=== PATIENT | male | born 1955 | race Caucasian/White ===

== ENCOUNTER 2016-10-05 22:12 | Observation (INO) | payer SELFPAY ==
--- NOTE | 2016-10-05 22:38 | ERPHSYRPT ---
- History of Present Illness Time Seen by Provider: 10/05/16 22:20 Source: patient Exam Limitations: no limitations Physician History: PT HAS HAD BLURRY VISION FOR THE PAST 2 MONTHS; POLYURIA FOR THE PAST MONTH; INTERMITTENT HEADACHE FOR THE PAST 3 DAYS. TODAY PT'S BLOOD GLUCOSE WAS 510 AT NOON AND 24O AT 2115. PT STATES HE TOOK BACTRIM FOR 3 DAYS FOR A UTI STARTING 3 DAYS AGO. PT DENIES CHEST PAIN, SHORTNESS OF AIR, VOMITING. Allergies/Adverse Reactions: No Known Drug Allergies Allergy (Unverified 10/05/16 22:18) - Review of Systems Constitutional: No Fever Eyes: Vision Changes (BLURRY VISION FOR 2 MONTHS) Respiratory: No Dyspnea Cardiac: No Chest Pain Abdominal/Gastrointestinal: No Vomiting Genitourinary Symptoms: Frequency Neurological: Headache Endocrine: No Excessive Sweating All Other Systems: Reviewed and Negative - Nursing Vital Signs Nursing Vital Signs: Initial Vital Signs Temperature 98.0 F Temperature Source Oral Pulse Rate 80 Respiratory Rate 16 Blood Pressure [] 110/64 Pain Intensity 0 - Physical Exam General Appearance: alert Eye Exam: PERRL/EOMI Ears, Nose, Throat Exam: pharynx normal, moist mucous membranes Neck Exam: normal inspection Respiratory Exam: lungs clear Cardiovascular Exam: normal heart sounds Gastrointestinal/Abdomen Exam: soft, normal bowel sounds Back Exam: normal range of motion Extremity Exam: normal inspection, No pedal edema Neurologic Exam: alert, cooperative Skin Exam: warm, dry - Course Nursing assessment & vital signs reviewed: Yes - CT Exams Head CT Interpretation: Tele-radiologist Report (NO ACUTE INTRACRANIAL PROCESS) Ordered Tests: Active Orders 24 hr Category Date Time Status Accucheck STAT Care 10/05/16 22:30 Active IV Insertion STAT Care 10/05/16 23:53 Active HEAD WITHOUT CONTRAST [CT] Stat Exams 10/05/16 22:31 Taken AMYLASE Stat Lab 10/05/16 23:01 Completed CBC W DIFF Stat Lab 10/05/16 23:01 Completed CMP Stat Lab 10/05/16 23:01 Completed LIPASE Stat Lab 10/05/16 23:01 Completed MAGNESIUM Stat Lab 10/05/16 23:01 Completed UA Stat Lab 10/05/16 22:30 Completed Medication Summary Generic Name Dose Route Start Last Admin Trade Name Freq PRN Reason Stop Dose Admin Sodium Chloride 1,000 mls @ 999 mls/hr 10/06/16 02:11 Sodium Chloride 0.9% 1000 Ml IV 10/06/16 03:11 .Q1H1M STA Discontinued Medications Generic Name Dose Route Start Last Admin Trade Name Leonidas PRN Reason Stop Dose Admin Sodium Chloride 1,000 mls @ 999 mls/hr 10/05/16 23:53 10/06/16 00:15 Sodium Chloride 0.9% 1000 Ml IV 10/06/16 00:53 999 mls/hr .Q1H1M STA Administration Sodium Chloride Confirm 10/06/16 00:14 Sodium Chloride 0.9% 1000 Ml Administered 10/06/16 00:15 Dose 1,000 mls @ ud .ROUTE .STK-MED ONE Lab/Rad Data: Laboratory Result Diagrams 10/05/16 23:01 10/05/16 23:01 Laboratory Results 10/05/16 10/05/16 10/05/16 Range/Units 23:01 23:01 23:01 WBC 10.0 (4.0-10.5) K/mm3 RBC 4.81 (4.1-5.6) M/mm3 Hgb 14.9 (12.5-18.0) gm/dl Hct 41.1 L (42-50) % MCV 85.4 (78-100) fl MCH 31.0 (26-32) pg MCHC 36.3 H (32-36) g/dl RDW 11.6 (11.5-14.0) % Plt Count 283 (150-450) K/mm3 MPV 11.1 H (6-9.5) fl Gran % 48.1 (36.0-66.0) % Lymphocytes % 40.7 (24.0-44.0) % Monocytes % 8.1 (0.0-12.0) % Eosinophils % 2.5 (0.00-5.0) % Basophils % 0.6 (0.0-0.4) % Basophils # 0.06 (0-0.4) Sodium 132 L (136-145) mEq/L Potassium 4.3 (3.5-5.1) mEq/L Chloride 94 L (98-107) mEq/L Carbon Dioxide 26.5 (21-32) mEq/L Anion Gap 15.3 H (5-15) MEQ/L BUN 80 H (9-20) mg/dL Creatinine 2.62 H (0.55-1.30) mg/dl Estimated GFR 26 ML/MIN Glucose 222 H (70-110) MG/DL Calcium 9.3 (8.5-10.1) mg/dL Magnesium 2.1 (1.8-2.4) mg/dL Total Bilirubin 0.4 (0.2-1.0) mg/dL AST 19 (15-37) U/L ALT 63 (12-78) U/L Alkaline Phosphatase 66 (46-116) U/L Serum Total Protein 7.1 (6.4-8.2) gm/dL Albumin 3.8 (3.4-5.0) g/dL Amylase 50 (25-115) U/L Lipase 219 (73-393) U/L Ur Collection Type Urine Color (YELLOW) Urine Appearance (CLEAR) Urine pH (5-6) Ur Specific [place] (1.005-1.025) Urine Protein (Negative) Urine Glucose (UA) (NEGATIVE) mg/dL Urine Ketones (NEGATIVE) Urine Nitrite (NEGATIVE) Urine Bilirubin (NEGATIVE) Urine Urobilinogen (0-1) mg/dL Urine WBC (Auto) (NEGATIVE) Urine RBC (Auto) (0-5) Rupesh/ul Specimen Received 10/05/16 Range/Units 22:30 WBC (4.0-10.5) K/mm3 RBC (4.1-5.6) M/mm3 Hgb (12.5-18.0) gm/dl Hct (42-50) % MCV (78-100) fl MCH (26-32) pg MCHC (32-36) g/dl RDW (11.5-14.0) % Plt Count (150-450) K/mm3 MPV (6-9.5) fl Gran % (36.0-66.0) % Lymphocytes % (24.0-44.0) % Monocytes % (0.0-12.0) % Eosinophils % (0.00-5.0) % Basophils % (0.0-0.4) % Basophils # (0-0.4) Sodium (136-145) mEq/L Potassium (3.5-5.1) mEq/L Chloride (98-107) mEq/L Carbon Dioxide (21-32) mEq/L Anion Gap (5-15) MEQ/L BUN (9-20) mg/dL Creatinine (0.55-1.30) mg/dl Estimated GFR ML/MIN Glucose (70-110) MG/DL Calcium (8.5-10.1) mg/dL Magnesium (1.8-2.4) mg/dL Total Bilirubin (0.2-1.0) mg/dL AST (15-37) U/L ALT (12-78) U/L Alkaline Phosphatase (46-116) U/L Serum Total Protein (6.4-8.2) gm/dL Albumin (3.4-5.0) g/dL Amylase (25-115) U/L Lipase (73-393) U/L Ur Collection Type CLEAN CATCH Urine Color YELLOW (YELLOW) Urine Appearance CLEAR (CLEAR) Urine pH 5.0 (5-6) Ur Specific [place] 1.010 (1.005-1.025) Urine Protein NEGATIVE (Negative) Urine Glucose (UA) NEGATIVE (NEGATIVE) mg/dL Urine Ketones NEGATIVE (NEGATIVE) Urine Nitrite NEGATIVE (NEGATIVE) Urine Bilirubin NEGATIVE (NEGATIVE) Urine Urobilinogen 0.2 (0-1) mg/dL Urine WBC (Auto) NEGATIVE (NEGATIVE) Urine RBC (Auto) NEGATIVE (0-5) Rupesh/ul Specimen Received [id number] - Progress Discussed with : Rafaela (OBS - [id number]) - Departure Time of Disposition: 02:13 Departure Disposition: Observation Clinical Impression: DEHYDRATION, ACUTE RENAL FAILURE, DM Condition: Fair Critical Care Time: No Referrals: ERIS NORMAN [Primary Care Provider] -
[2016-10-05 23:04] LABS: BASOPHIL % 0.6 % (0.0-0.4); Eosinophil % 2.5 % (0.00-5.0); Granulocytes % 48.1 % (36.0-66.0); Lymphocytes % 40.7 % (24.0-44.0); Mean Cell Volume 85.4 fl (78-100); Mean Platelet Volume 11.1 fl (6-9.5); Monocytes % 8.1 % (0.0-12.0); Platelet Count 283 K/mm3 (150-450); Red Blood Count 4.81 M/mm3 (4.1-5.6); Red Cell Distribution Width 11.6 % (11.5-14.0)
[2016-10-05 23:25] LABS: LIPASE 219 U/L (73-393)
[2016-10-05 23:27] LABS: ALBUMIN 3.8 g/dL (3.4-5.0); ANION GAP 15.3 MEQ/L (5-15); BILIRUBIN,TOTAL 0.4 mg/dL (0.2-1.0); Carbon Dioxide 26.5 mEq/L (21-32); MAGNESIUM 2.1 mg/dL (1.8-2.4); Potassium 4.3 mEq/L (3.5-5.1); Total Protein 7.1 gm/dL (6.4-8.2)
[2016-10-05] MEDS ORDERED: Sodium Chloride 0.9% 1000 ML 1,000 ML IV STA (23:53)
[2016-10-06] MEDS ORDERED: Sodium Chloride 0.9% 1000 ML 1,000 ML ONE ×2 (00:14→02:16)
[2016-10-06 00:27] LABS: COMPLETE URINE MICROSCOPIC? NO; Collection Type CLEAN CATCH
[2016-10-06] MEDS ORDERED: Sodium Chloride 0.9% 1000 ML 1,000 ML IV STA (02:11)
[2016-10-06] MEDS ORDERED: TYLENOL 325 MG PO PRN (02:51)
[2016-10-06] MEDS ORDERED: Phenergan 25 MG INJ IV PRN (02:51)
[2016-10-06] MEDS: Sodium Chloride 0.9% 1000 ML 1,000 ML IV SCH ×3 (04:02→10:55)
[2016-10-06 08:51] LABS: BASOPHIL % 0.6 % (0.0-0.4); Eosinophil % 3.1 % (0.00-5.0); Granulocytes % 50.2 % (36.0-66.0); Lymphocytes % 37.7 % (24.0-44.0); Mean Cell Volume 88.4 fl (78-100); Mean Corpuscular Hemoglobin 30.8 pg (26-32); Mean Platelet Volume 11.3 fl (6-9.5); Monocytes % 8.4 % (0.0-12.0); Platelet Count 250 K/mm3 (150-450); Red Blood Count 4.15 M/mm3 (4.1-5.6); Red Cell Distribution Width 11.7 % (11.5-14.0); White Blood Count 7.7 K/mm3 (4.0-10.5)
--- NOTE | 2016-10-06 08:55 | XRAY ---
Indication: Blurred vision for 2 months. Intermittent headache. Hypertension. Multiple contiguous axial images obtained through the head without contrast. Comparison: None Normal appearing brain parenchyma, ventricles, and bony calvarium. There is mild mucosal thickening of both ethmoid sinuses. Mastoid air cells are clear. Impression: No acute intracranial abnormalities. Incidental paranasal sinus disease. Comment: Preliminary interpretation was made by C. No discrepancy. CTDI is 69.79
[2016-10-06 09:20] LABS: ANION GAP 11.6 MEQ/L (5-15); BILIRUBIN,TOTAL 0.3 mg/dL (0.2-1.0); Potassium 4.9 mEq/L (3.5-5.1); Total Protein 5.8 gm/dL (6.4-8.2)
[2016-10-06] MEDS: NovoLOG Insulin SQ PRN ×2 (09:24→12:06)
[2016-10-06] MEDS ORDERED: Lantus Insulin SQ SCH (10:00)
[2016-10-06] MEDS ORDERED: INSULIN GLARGINE HUM REC ANLOG 20 UNIT SQ SCH (10:00)
[2016-10-06] MEDS ORDERED: Micronase 5 MG PO SCH (10:00)
[2016-10-06] MEDS ORDERED: Protonix 40MG Tablet PO SCH (10:00)
[2016-10-06] MEDS ORDERED: Zestril 20 MG PO SCH (10:00)
[2016-10-06] MEDS ORDERED: NON-FORMULARY ITEM (Omeprazole 20 Mg [Prilosec 20 Mg] 20 MG) PO SCH (10:00)
[2016-10-06] MEDS ORDERED: NORVASC 5 MG PO SCH (10:00)
[2016-10-06 12:23] VITALS: BP 99/56; PULSE 66; O2SAT 98
--- NOTE | 2016-10-06 13:12 | PCM.SSS ---
History of Present Illness - Chief Complaint Chief Complaint: patient has high blood sugar History of Present Illness: is a 61 year old male PT HAS HAD BLURRY VISION FOR THE PAST 2 MONTHS; POLYURIA FOR THE PAST MONTH; INTERMITTENT HEADACHE FOR THE PAST 3 DAYS. TODAY PT 'S BLOOD GLUCOSE WAS 510 AT NOON AND 24O AT 2115. PT STATES HE TOOK BACTRIM FOR 3 DAYS FOR A UTI STARTING 3 DAYS AGO. PT DENIES CHEST PAIN, SHORTNESS OF AIR, VOMITING.. - Review of Systems Constitutional: No Fever, No Chills Eyes: No Symptoms Ears, Nose, & Throat: No Symptoms Respiratory: No Cough, No Short Of Breath Cardiac: No Chest Pain, No Edema, No Syncope Abdominal/Gastrointestinal: No Abdominal Pain, No Nausea, No Vomiting, No Diarrhea Genitourinary Symptoms: No Dysuria Musculoskeletal: No Back Pain, No Neck Pain Skin: No Rash Neurological: Dizziness, No Focal Weakness, No Sensory Changes Psychological: No Symptoms Endocrine: No Symptoms Hematologic/Lymphatic: No Symptoms Immunological/Allergic: No Symptoms Medications & Allergies Home Medications: Home Medication List Amlodipine Besylate 5 mg [Norvasc 5 mg] 5 mg PO DAILY 10/06/16 [History Confirmed 10/06/16] Glyburide 5 mg [Micronase 5 MG] 5 mg PO DAILY 10/06/16 [History Confirmed 10/06/16] Insulin Glargine,Hum.rec.anlog [Gela Stallings] 15 unit SQ BID #0 10/06/16 [ Rx Confirmed 10/06/16] Lisinopril 20 mg [Zestril 20 MG] 40 mg PO DAILY 10/06/16 [History Confirmed 10/06/16] Omeprazole 20 MG [Prilosec 20 mg] 20 mg PO DAILY 10/06/16 [History Confirmed ] Allergies/Adverse Reactions: Allergies Allergy/AdvReac Type Severity Reaction Status Date / Time No Known Drug Allergies Allergy Unverified 10/05/16 22:18 - Past Medical History Past Medical History: Yes Cardiac History: Hypertension Respiratory History: Asthma Endocrine Medical History: Diabetes Type II Musculoskelatal History: Fractures GI Medical History: GERD, Hernia History: No Pertinent History Pyscho-Social History: No Pertinent History Male Reproductive Disorders: No Pertinent History Comment: was born with a hernia, three fractures on Left arm 1964, and fracture on R ankle 1965. had gonorrhea in the 1969's. - Past Surgical History Past Surgical History: Yes Cardiac History: Cardiac Catheterization - Social History Smoking Status: Former smoker Exposure to second hand smoke: No Alcohol: Occasionally Drug Use: none - Physical Exam Vital Signs: Vital Signs - 24 hr Temp Pulse Resp BP BP Pulse Ox 10/06/16 12:22 97.5 F 66 20 99/56 98 10/06/16 07:20 97.8 F 86 20 110/58 97 10/06/16 04:15 91 H 18 95 10/06/16 03:03 97.9 F 90 19 110/61 96 10/06/16 01:24 80 16 110/64 97 10/06/16 00:41 89 16 98/52 99 10/05/16 22:18 98.0 F 96 H 20 94/60 98 General Appearance: no apparent distress, alert Neurologic Exam: alert, oriented x 3, cooperative, normal mood/affect, nml cerebellar function, nml station & gait, sensation nml, No motor deficits Eye Exam: PERRL/EOMI, eyes nml inspection Ears, Nose, Throat Exam: normal ENT inspection, TMs normal, pharynx normal, moist mucous membranes Neck Exam: normal inspection, non-tender, supple, full range of motion Respiratory Exam: normal breath sounds, lungs clear, No respiratory distress Cardiovascular Exam: regular rate/rhythm, normal heart sounds, normal peripheral pulses Gastrointestinal/Abdomen Exam: soft, normal bowel sounds, No tenderness, No mass Back Exam: normal inspection, normal range of motion, No CVA tenderness, No vertebral tenderness Extremity Exam: normal inspection, normal range of motion, pelvis stable Skin Exam: normal color, warm, dry, No rash Lymphatic Exam: No adenopathy Results - Labs Lab/Micro Results: Accuchecks Accucheck Value: 258 Accucheck Value: 235 Lab Results-Last 24 Hours 10/06/16 10/06/16 10/06/16 Range/Units 05:00 08:07 08:07 WBC 7.7 (4.0-10.5) K/mm3 RBC 4.15 (4.1-5.6) M/mm3 Hgb 12.8 (12.5-18.0) gm/dl Hct 36.7 L (42-50) % MCV 88.4 (78-100) fl MCH 30.8 (26-32) pg MCHC 34.9 (32-36) g/dl RDW 11.7 (11.5-14.0) % Plt Count 250 (150-450) K/mm3 MPV 11.3 H (6-9.5) fl Gran % 50.2 (36.0-66.0) % Lymphocytes % 37.7 (24.0-44.0) % Monocytes % 8.4 (0.0-12.0) % Eosinophils % 3.1 (0.00-5.0) % Basophils % 0.6 (0.0-0.4) % Basophils # 0.05 (0-0.4) Sodium 137 (136-145) mEq/L Potassium 4.9 (3.5-5.1) mEq/L Chloride 103 (98-107) mEq/L Carbon Dioxide 27.0 (21-32) mEq/L Anion Gap 11.6 (5-15) MEQ/L BUN 66 H (9-20) mg/dL Creatinine 2.13 H (0.55-1.30) mg/dl Estimated GFR 34 ML/MIN Glucose 266 H (70-110) MG/DL Hemoglobin A1c 11.9 H (4.5-6.2) Calcium 8.3 L (8.5-10.1) mg/dL Total Bilirubin 0.3 (0.2-1.0) mg/dL AST 27 (15-37) U/L ALT 51 (12-78) U/L Alkaline Phosphatase 51 (46-116) U/L Serum Total Protein 5.8 L (6.4-8.2) gm/dL Albumin 3.0 L (3.4-5.0) g/dL Accuchecks Accucheck Value: 258 Accucheck Value: 235 Assessment/Plan (1) Type 2 diabetes mellitus Current Visit: Yes Status: Acute Qualifiers: Diabetes mellitus complication status: with hyperglycemia Diabetes mellitus vermin exterminator insulin use: unspecified vermin exterminator insulin use status Qualified Code(s): E11.65 - Type 2 diabetes mellitus with hyperglycemia Hospital Summary - Hospital Course Hospital Course: Chief Complaint Diagnosis patient has high blood sugar Allergies Allergy/AdvReac Type Severity Reaction Status Date / Time No Known Drug Allergies Allergy Unverified 10/05/16 22:18 Vital Signs (Last 24 hours) Temp Pulse Resp BP BP Pulse Ox 10/06/16 12:22 97.5 F 66 20 99/56 98 10/06/16 07:20 97.8 F 86 20 110/58 97 10/06/16 04:15 91 H 18 95 10/06/16 03:03 97.9 F 90 19 110/61 96 10/06/16 01:24 80 16 110/64 97 10/06/16 00:41 89 16 98/52 99 10/05/16 22:18 98.0 F 96 H 20 94/60 98 Home Medications Medication Instructions Recorded Confirmed Last Taken Type Amlodipine Besylate 5 mg 5 mg PO DAILY 10/06/16 10/06/16 10/05/16 05:00 History [Norvasc 5 mg] Glyburide 5 mg [Micronase 5 5 mg PO DAILY 10/06/16 10/06/16 Unknown History MG] Insulin Glargine,Hum.rec.anlog 20 unit SQ BID 10/06/16 10/06/16 10/05/16 19:00 History [Gela Stallings] Lisinopril 20 mg [Zestril 20 40 mg PO DAILY 10/06/16 10/06/16 10/05/16 05:00 History MG] Omeprazole 20 MG [Prilosec 20 mg] 20 mg PO DAILY 10/06/16 10/06/16 10/05/16 05: 00 History Current Medications Generic Name Dose Route Start Last Admin Trade Name Freq PRN Reason Stop Dose Admin Acetaminophen 650 mg 10/06/16 02:51 Tylenol 325 Mg PO 11/05/16 02:50 Q4H PRN PRN PAIN AND/OR FEVER Amlodipine Besylate 5 mg 10/06/16 10:00 10/06/16 09:26 Norvasc 5 Mg PO 11/05/16 09:59 5 mg DAILY WILLIAM Administration Glyburide 5 mg 10/06/16 10:00 10/06/16 09:26 Micronase 5 Mg PO 11/05/16 09:59 5 mg DAILY WILLIAM Administration Sodium Chloride 1,000 mls @ 300 mls/hr 10/06/16 02:51 10/06/16 10:55 Sodium Chloride 0.9% 1000 Ml IV 11/05/16 02:50 300 mls/hr .Q3H20M WILLIAM Administration Insulin Aspart 0 unit 10/06/16 02:51 10/06/16 12:06 Novolog Insulin SQ 11/05/16 02:50 7 unit UD PRN Administration HYPERGLYCEMIA Insulin Glargine 16 unit 10/06/16 10:00 10/06/16 09:27 Lantus Insulin SQ 11/05/16 09:59 16 unit BID WILLIAM Administration Lisinopril 40 mg 10/06/16 10:00 10/06/16 09:25 Zestril 20 Mg PO 11/05/16 09:59 40 mg DAILY WILLIAM Administration Pantoprazole Sodium 40 mg 10/06/16 10:00 10/06/16 09:26 Protonix 40mg Tablet PO 11/05/16 09:59 40 mg DAILY WILLIAM Administration Promethazine HCl 12.5 mg 10/06/16 02:51 Phenergan 25 Mg Inj IV 11/05/16 02:50 Q2H PRN PRN NAUSEA/VOMITING Discontinued Medications Generic Name Dose Route Start Last Admin Trade Name Freq PRN Reason Stop Dose Admin Sodium Chloride 1,000 mls @ 999 mls/hr 10/05/16 23:53 10/06/16 00:15 Sodium Chloride 0.9% 1000 Ml IV 10/06/16 00:53 999 mls/hr .Q1H1M STA Administration Sodium Chloride Confirm 10/06/16 00:14 Sodium Chloride 0.9% 1000 Ml Administered 10/06/16 00:15 Dose 1,000 mls @ ud .ROUTE .STK-MED ONE Sodium Chloride 1,000 mls @ 999 mls/hr 10/06/16 02:11 10/06/16 02:17 Sodium Chloride 0.9% 1000 Ml IV 10/06/16 03:11 999 mls/hr .Q1H1M STA Administration Sodium Chloride Confirm 10/06/16 02:16 Sodium Chloride 0.9% 1000 Ml Administered 10/06/16 02:17 Dose 1,000 mls @ ud .ROUTE .STK-MED ONE Intake & Output (Last 24 hours) 01/22/10/05/16 10/06/16 10/07/16 11:59 11:59 11:59 11:59 Intake Total 240 Output Total 200 Balance 40 Weight 107.547 kg Laboratory Results (Last 24 hours) 10/06/16 10/06/16 10/06/16 08:07 08:07 05:00 WBC 7.7 RBC 4.15 Hgb 12.8 Hct 36.7 L MCV 88.4 MCH 30.8 MCHC 34.9 RDW 11.7 Plt Count 250 MPV 11.3 H Gran % 50.2 Lymphocytes % 37.7 Monocytes % 8.4 Eosinophils % 3.1 Basophils % 0.6 Basophils # 0.05 Sodium 137 Potassium 4.9 Chloride 103 Carbon Dioxide 27.0 Anion Gap 11.6 BUN 66 H Creatinine 2.13 H Estimated GFR 34 Glucose 266 H Hemoglobin A1c 11.9 H Calcium 8.3 L Magnesium Total Bilirubin 0.3 AST 27 ALT 51 Alkaline Phosphatase 51 Serum Total Protein 5.8 L Albumin 3.0 L Amylase Lipase Ur Collection Type Urine Color Urine Appearance Urine pH Ur Specific [place] Urine Protein Urine Glucose (UA) Urine Ketones Urine Nitrite Urine Bilirubin Urine Urobilinogen Urine WBC (Auto) Urine RBC (Auto) Specimen Received 10/05/16 10/05/16 10/05/16 23:01 23:01 23:01 WBC 10.0 RBC 4.81 Hgb 14.9 Hct 41.1 L MCV 85.4 MCH 31.0 MCHC 36.3 H RDW 11.6 Plt Count 283 MPV 11.1 H Gran % 48.1 Lymphocytes % 40.7 Monocytes % 8.1 Eosinophils % 2.5 Basophils % 0.6 Basophils # 0.06 Sodium 132 L Potassium 4.3 Chloride 94 L Carbon Dioxide 26.5 Anion Gap 15.3 H BUN 80 H Creatinine 2.62 H Estimated GFR 26 Glucose 222 H Hemoglobin A1c Calcium 9.3 Magnesium 2.1 Total Bilirubin 0.4 AST 19 ALT 63 Alkaline Phosphatase 66 Serum Total Protein 7.1 Albumin 3.8 Amylase 50 Lipase 219 Ur Collection Type Urine Color Urine Appearance Urine pH Ur Specific [place] Urine Protein Urine Glucose (UA) Urine Ketones Urine Nitrite Urine Bilirubin Urine Urobilinogen Urine WBC (Auto) Urine RBC (Auto) Specimen Received 10/05/16 22:30 WBC RBC Hgb Hct MCV MCH MCHC RDW Plt Count MPV Gran % Lymphocytes % Monocytes % Eosinophils % Basophils % Basophils # Sodium Potassium Chloride Carbon Dioxide Anion Gap BUN Creatinine Estimated GFR Glucose Hemoglobin A1c Calcium Magnesium Total Bilirubin AST ALT Alkaline Phosphatase Serum Total Protein Albumin Amylase Lipase Ur Collection Type CLEAN CATCH Urine Color YELLOW Urine Appearance CLEAR Urine pH 5.0 Ur Specific [place] 1.010 Urine Protein NEGATIVE Urine Glucose (UA) NEGATIVE Urine Ketones NEGATIVE Urine Nitrite NEGATIVE Urine Bilirubin NEGATIVE Urine Urobilinogen 0.2 Urine WBC (Auto) NEGATIVE Urine RBC (Auto) NEGATIVE Specimen Received [id number] Orders (Last 24 hours) Category Date Time Status Bedrest ROUTINE Activity 10/06/16 02:51 Active Accucheck ACHS Care 10/06/16 02:51 Active Accucheck STAT Care 10/05/16 22:30 Completed Accucheck STAT Care 10/06/16 02:25 Completed Admission/Status Order ROUTINE Care 10/06/16 02:51 Active Code Status Order ROUTINE Care 10/06/16 02:51 Active IV Care Q6H Care 10/06/16 02:51 Active IV Insertion STAT Care 10/05/16 23:53 Completed Intake and Output Q12H Care 10/06/16 02:51 Active Vital Signs Q4H Care 10/06/16 02:51 Active Weight,Daily 0600 Care 10/06/16 02:51 Active 1800 Calorie ADA Diet 10/06/16 Breakfast Active Nutritional Admission Screen once Diet 10/06/16 04:10 Completed HEAD WITHOUT CONTRAST [CT] Stat Exams 10/05/16 22:31 Completed A1C [HEMOGLOBIN A1C] Urgent Lab 10/06/16 05:00 Completed AMYLASE Stat Lab 10/05/16 23:01 Completed CBC W DIFF Routine Lab 10/06/16 08:07 Completed CBC W DIFF Stat Lab 10/05/16 23:01 Completed CMP Routine Lab 10/06/16 08:07 Completed CMP Stat Lab 10/05/16 23:01 Completed LIPASE Stat Lab 10/05/16 23:01 Completed MAGNESIUM Stat Lab 10/05/16 23:01 Completed UA Stat Lab 10/05/16 22:30 Completed Acetaminophen 325 mg [Tylenol 325 mg] Med 10/06/16 02:51 Active 650 mg PO Q4H PRN PRN Amlodipine Besylate 5 mg [Norvasc 5 mg] Med 10/06/16 10:00 Active 5 mg PO DAILY Glyburide 5 mg [Micronase 5 MG] Med 10/06/16 10:00 Active 5 mg PO DAILY Insulin Aspart [NovoLOG Insulin] Med 10/06/16 02:51 Active See Dose Instructions SQ UD PRN Insulin Glargine [Lantus Insulin] Med 10/06/16 10:00 Active 16 unit SQ BID Lisinopril 20 mg [Zestril 20 MG] Med 10/06/16 10:00 Active 40 mg PO DAILY NaCl 0.9% 1000 ml [Sodium Chloride 0.9% 1000 ML] 1,000 Med 10/06/16 00:14 Discontinued ml .ROUTE UD NaCl 0.9% 1000 ml [Sodium Chloride 0.9% 1000 ML] 1,000 Med 10/06/16 02:16 Discontinued ml .ROUTE UD NaCl 0.9% 1000 ml [Sodium Chloride 0.9% 1000 ML] 1,000 Med 10/06/16 02:51 Active ml IV 300 mls/hr NaCl 0.9% 1000 ml [Sodium Chloride 0.9% 1000 ML] 1,000 Med 10/05/16 23:53 Discontinued ml IV 999 mls/hr NaCl 0.9% 1000 ml [Sodium Chloride 0.9% 1000 ML] 1,000 Med 10/06/16 02:11 Discontinued ml IV 999 mls/hr PANTOPRAZOLE 40 mg Tablet [Protonix 40MG Tablet] Med 10/06/16 10:00 Active 40 mg PO DAILY Promethazine HCl 25 mg Amp [Phenergan 25 MG INJ] Med 10/06/16 02:51 Active 12.5 mg IV Q2H PRN PRN RT Screen per Nursing Assess ONCE RT 10/06/16 04:10 Completed Respiratory Therapy Consult ROUTINE RT 10/06/16 04:53 Completed Transfer Order Routine Transfer 10/06/16 02:14 Completed - Vitals & Intake/Output Vital Signs: Vital Signs Temperature 97.5 F 10/06/16 12:22 Pulse Rate 66 10/06/16 12:22 Respiratory Rate 20 10/06/16 12:22 Blood Pressure 99/56 10/06/16 12:22 O2 Sat by Pulse Oximetry 98 10/06/16 12:22 Intake & Output: Intake & Output 10/04/16 10/05/16 10/06/16 10/07/16 11:59 11:59 11:59 11:59 Intake Total 240 Output Total 200 Balance 40 Weight 107.547 kg - Lab Result Diagrams: 10/06/16 08:07 10/06/16 08:07 Lab Results-Last 24 Hrs: Accuchecks Accucheck Value: 258 Accucheck Value: 235 Lab Results-Last 24 Hours 10/06/16 10/06/16 10/06/16 Range/Units 05:00 08:07 08:07 WBC 7.7 (4.0-10.5) K/mm3 RBC 4.15 (4.1-5.6) M/mm3 Hgb 12.8 (12.5-18.0) gm/dl Hct 36.7 L (42-50) % MCV 88.4 (78-100) fl MCH 30.8 (26-32) pg MCHC 34.9 (32-36) g/dl RDW 11.7 (11.5-14.0) % Plt Count 250 (150-450) K/mm3 MPV 11.3 H (6-9.5) fl Gran % 50.2 (36.0-66.0) % Lymphocytes % 37.7 (24.0-44.0) % Monocytes % 8.4 (0.0-12.0) % Eosinophils % 3.1 (0.00-5.0) % Basophils % 0.6 (0.0-0.4) % Basophils # 0.05 (0-0.4) Sodium 137 (136-145) mEq/L Potassium 4.9 (3.5-5.1) mEq/L Chloride 103 (98-107) mEq/L Carbon Dioxide 27.0 (21-32) mEq/L Anion Gap 11.6 (5-15) MEQ/L BUN 66 H (9-20) mg/dL Creatinine 2.13 H (0.55-1.30) mg/dl Estimated GFR 34 ML/MIN Glucose 266 H (70-110) MG/DL Hemoglobin A1c 11.9 H (4.5-6.2) Calcium 8.3 L (8.5-10.1) mg/dL Total Bilirubin 0.3 (0.2-1.0) mg/dL AST 27 (15-37) U/L ALT 51 (12-78) U/L Alkaline Phosphatase 51 (46-116) U/L Serum Total Protein 5.8 L (6.4-8.2) gm/dL Albumin 3.0 L (3.4-5.0) g/dL Micro Results-Entire Visit: Accuchecks Accucheck Value: 258 Accucheck Value: 235 - Procedures and Test Procedures and Tests throughout Hospitalization: Therapy Orders & Screens 10/06/16 04:10 RT Screen per Nursing Assess ONCE Comment: Protocol Order Physician Instructions: Greater than 3 points order RT Admission Screen Reason For Exam: Triggered on Admission Diagnosis: dehydration and acute renal failure Diagnosis: dehydration and acute renal failure Pneumonia: No Home O2: No Asthma: Yes CHF: No Home CPAP/BIPAP: No Home Nebs/MDI: Yes Total Points: 9 10/06/16 04:53 Respiratory Therapy Consult ROUTINE Comment: Reason For Exam: Diagnosis: dehydration and acute renal failure - Discharge Discharge Date: 10/06/16 Disposition: Home, Self-Care Condition: Stable Prescriptions: Changed Insulin Glargine,Hum.rec.anlog [Gela Stallings] 15 unit SQ BID #0 No Action Lisinopril 20 mg [Zestril 20 MG] 40 mg PO DAILY Amlodipine Besylate 5 mg [Norvasc 5 mg] 5 mg PO DAILY Omeprazole 20 MG [Prilosec 20 mg] 20 mg PO DAILY Glyburide 5 mg [Micronase 5 MG] 5 mg PO DAILY Instructions: Carbohydrate-Counting Diet, Diabetes Type 2 Follow up with: ERIS NORMAN [Primary Care Provider] - 5 Days Forms: Patient Portal Information
== END 2016-10-06 14:25 | disposition home or self-care (01) ==
LOC: ED 22:12 → MED SURG 10-06 02:48
PROVIDERS: ADMIT General Practice; ATTEND General Practice
DX: E11.65 Type 2 diabetes mellitus with hyperglycemia (principal); Z79.4 Long term (current) use of insulin
CPT/HCPCS: 36000; 36415; 70450; 80053; 81002; 82150; 82962; 83036; 83690; 83735; 85025; 94760; 96360; 96361; 99284; G0378

== ENCOUNTER 2021-07-29 13:30 | Emergency (ER) | payer MEDICARE, OTHER ==
--- NOTE | 2021-07-29 13:57 | ERPHSYRPT ---
- History of Present Illness Time Seen by Provider: 07/29/21 13:57 Source: patient Exam Limitations: no limitations Patient Subjective Stated Complaint: pt states "I smashed my finger with a lawnmower handle." Triage Nursing Assessment: Pt presented alert and oriented X 3, skin pwd Pt ambulates with an upright steady gait, able to speak in clear full sentences pt in no apparent respiratory distress. Pt has broken fingernail in the middle on his middle finger of his right hand. Physician History: This is a right-handed 66-year-old male who is diabetic and has a history of hypertension and was riding his lawn more today when the lever retracted unexpectedly smashing his third digit. The patient's tetanus status is not up-to-date. There are no other associated injuries Timing/Duration: today Quality: painful Severity: moderate Location: hands (Right hand third digit) Possible Causes: other (Crush injury) Associated Symptoms: denies symptoms Allergies/Adverse Reactions: soap Allergy (Intermediate, Verified 07/29/21 13:53) Hives Home Medications: Amlodipine Besylate 5 mg [Norvasc 5 mg] 5 mg PO DAILY 10/06/16 [History] Glyburide 5 mg [Micronase 5 MG] 5 mg PO DAILY 10/06/16 [History] Lisinopril 20 mg [Zestril 20 MG] 40 mg PO DAILY 10/06/16 [History] Omeprazole 20 MG [Prilosec 20 mg] 20 mg PO DAILY 10/06/16 [History] Hx Tetanus, Diphtheria Vaccination/Date Given: No Hx Influenza Vaccination/Date Given: Yes Hx Pneumococcal Vaccination/Date Given: Yes Immunizations Up to Date: Yes Travel Risk - International Travel Have you traveled outside of the country in past 3 weeks: No - Coronavirus Screening Are you exhibiting any of the following symptoms?: No Close contact with a COVID-19 positive Pt in past 14-21 Days: No - Vaccine Status Have you recieved a Covid-19 vaccination: Yes 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 had gonorrhea in the s. - Past Surgical History Past Surgical History: Yes Cardiac: Cardiac Catheterization - Social History Smoking Status: Former smoker Exposure to second hand smoke: Yes Drug Use: none Patient Lives Alone: No - Nursing Vital Signs Nursing Vital Signs: Initial Vital Signs Temperature 97.5 F 07/29/21 13:48 Pulse Rate 97 H 07/29/21 13:48 Respiratory Rate 20 07/29/21 13:48 Blood Pressure 148/96 07/29/21 13:48 O2 Sat by Pulse Oximetry 98 07/29/21 13:48 Pain Scale Pain Intensity 3 - Physical Exam General Appearance: no apparent distress, alert, anxiety Eye Exam: PERRL/EOMI, eyes nml inspection Ears, Nose, Throat Exam: normal ENT inspection, moist mucous membranes Neck Exam: normal inspection, non-tender, supple, full range of motion Respiratory Exam: airway intact, No chest tenderness, No respiratory distress Gastrointestinal/Abdomen Exam: soft, No tenderness Rectal Exam: not done Back Exam: normal inspection, normal range of motion, No CVA tenderness, No vertebral tenderness Neurologic Exam: alert, oriented x 3, cooperative, 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 Evaluation was performed to the base in a bloodless field) Irrigated: Yes Hibiclens Prep: Yes Anesthesia: 1% Lidocaine Volume Anesthetic (ccs): 6 Suture Size/Type: 4-0, nylon (4-0 nylon 3 simple interrupted sutures to approximate the irregular surrounding skin lacerations), vicryl (2 simple interrupted sutures in the nailbed) Number of Sutures: 5 (2 Vicryl stitches placed in the nailbed after removal of portion of nail. 3 nylon in the skin) Sterile Dressing Applied?: Yes Splint Applied?: Yes Type of Splint Applied: Finger splint applied Progress: 07/29/21 15:23 Procedure note: After performing a timeout at 3 PM the area was prepped with Hibiclens solution. Approximately 6 cc of 1% lidocaine plain was used to anesthetize the crust laceration site of the third digit right hand distally. A portion of the nail was avulsed and this was removed in order to place to simple interrupted sutures of 4-0 Vicryl suture. Next, we placed 3 simple interrupted sutures of 4-0 nylon. This provided significant hemostasis. There was some oozing from the tissue overlying the nailbed and this was cauterized with a single silver nitrate stick. The wound was then cleaned dried and bacitracin ointment was applied. After this nonstick gauze and pressure dressing was applied. - Course Nursing assessment & vital signs reviewed: Yes Ordered Tests: Active Orders 24 hr Category Date Time Status Wound Care STAT Care 07/29/21 14:12 Active HAND (MINIMUM 3 VIEWS) Stat Exams 07/29/21 14:53 Taken Medication Summary Discontinued Medications Generic Name Dose Route Start Last Admin Trade Name Freq PRN Reason Stop Dose Admin Bacitracin Zinc 0.9 gm 07/29/21 14:10 07/29/21 14:45 Bacitracin Packet 0.9 Gm Pckt TP 07/29/21 14:11 0.9 gm STAT ONE Administration Bacitracin Zinc Confirm 07/29/21 14:43 Bacitracin Packet 0.9 Gm Pckt Administered 07/29/21 14:44 Dose 1 gm .ROUTE .STK-MED ONE Diphtheria/Tetanus/Acell Pertussis 0.5 ml 07/29/21 14:10 07/29/21 14:45 Tdap --Diph,Pertuss(Acell),Tet Vac/Pf 0.5 Ml Vial IM 07/29/21 14:11 0.5 ml .ONCE ONE Administration Diphtheria/Tetanus/Acell Pertussis Confirm 07/29/21 14:43 Tdap --Diph,Pertuss(Acell),Tet Vac/Pf 0.5 Ml Vial Administered 07/29/21 14:44 Dose 0.5 ml IM .STK-MED ONE Silver Nitrate Confirm 07/29/21 14:48 Silver Nitrate 1 Pkt Each Administered 07/29/21 14:49 Dose 1 pkt TP .STK-MED ONE Silver Nitrate 1 pkt 07/29/21 14:57 07/29/21 14:58 Silver Nitrate 1 Pkt Each TP 07/29/21 14:58 1 pkt STAT ONE Administration - Progress Progress: improved, pain not gone completely, re-examined Progress Note: 07/29/21 15:25 X-ray of right hand shows a minimally displaced third finger tuft fracture Counseled pt/family regarding: diagnosis, need for follow-up, rad results - Departure Clinical Impression: Open fracture of tuft of distal phalanx of finger Condition: Stable Critical Care Time: No Referrals: KATHRYN KHAN MD [Primary Care Provider] - Follow up/PCP as directed Additional Instructions: Keep current dressing in place for 48 hours. After 48 hours may remove the dressing leaving the sutures in place. Wash the site daily with soap and water and hydroperoxide. Then may apply antibiotic ointment of choice. After washing and applying antibiotic ointment, place a nonstick bandage to the site. Follow- up with hand surgeon at scheduled appointment date and time. Prescriptions: Hydrocodone/APAP 5/325 [[place] 5/325 mg] 1 each PO Q8H PRN PRN #9 tablet MDD 3 PRN Reason: Pain Cephalexin Mh 500 mg [Keflex 500 mg] 500 mg PO TID #21 cap
[2021-07-29] MEDS ORDERED: Adacel Vial IM ONE ×2 (14:10→14:43)
[2021-07-29] MEDS ORDERED: BACIGUENT PACKET TP ONE (14:10)
[2021-07-29] MEDS ORDERED: BACIGUENT PACKET ONE (14:43)
[2021-07-29] MEDS ORDERED: ARZOL Silver Nitrate Applicator TP ONE ×2 (14:48→14:57)
--- NOTE | 2021-07-29 15:22 | XRAY ---
Indication: 3rd finger injury with lawnmower. Comparison: None 3 view right hand demonstrates minimally displaced 3rd finger tuft fracture with soft tissue swelling/laceration. Elsewhere minimal/mild degenerative changes all IP/MCP joints. Remaining hand unremarkable.
== END 2021-07-29 15:48 | disposition home or self-care (01) ==
LOC: ED 13:30
DX: S62.632B Displaced fracture of distal phalanx of right middle finger, initial encounter for open fracture (principal); W31.89XA Contact with other specified machinery, initial encounter; Y93.H9 Activity, other involving exterior property and land maintenance, building and construction; I10 Essential (primary) hypertension
CPT/HCPCS: 12001; 73130; 90471; 90715; 99284; A9270-GY

== ENCOUNTER 2022-09-03 00:06 | Observation (INO) | payer MEDICARE, OTHER ==
[2022-09-03 00:43] LABS: Absolute Neutrophil Ct (ANC) 8.33 x10^3/uL (1.4-6.9); Basophil (Absolute #) 0.04 x10^3/uL (0-0.4); Eosinophil % 1.2 % (0.00-5.0); Eosinophil (Absolute #) 0.14 x10^3/uL (0-0.5); Hematocrit 42.2 % (42-50); Hemoglobin 14.6 g/dL (12.5-18.0); Lymphocyte (Absolute #) 2.12 x10^3/uL (1.0-4.6); Lymphocytes % 17.9 % (24.0-44.0); Mean Cell Volume 94.2 fL (78-100); Mean Corpuscular Hemoglobin 32.6 pg (26-32); Mean Corpuscular Hgb Concent. 34.6 g/dL (32-36); Mean Platelet Volume 9.9 fL (7.5-11.0); Monocyte (Absolute #) 1.17 x10^3/uL (0.0-1.3); Monocytes % 9.9 % (0.0-12.0); Neutrophil % 70.3 % (36.0-66.0); Platelet Count 266 x10^3/uL (150-450); Red Blood Count 4.48 x10^6/uL (4.1-5.6); Red Cell Distribution Width 12.3 % (11.5-14.0); White Blood Count 11.9 x10^3/uL (4.0-10.5)
[2022-09-03] MEDS ORDERED: BABY ASPIRIN 81 MG CHEW PO ONE (00:53)
[2022-09-03] MEDS ORDERED: NITRO-BID 2% UD PACKETS TOP ONE (00:54)
[2022-09-03 00:58] LABS: ALBUMIN 4.3 g/dL (3.5-5.0); ALKALINE PHOSPHATASE 59 U/L (38-126); ANION GAP 9.1 MEQ/L (5-15); BLOOD UREA NITROGEN 16 mg/dL (9-20); CHLORIDE 97 mmol/L (98-107); Calcium 8.3 mg/dL (8.4-10.2); Carbon Dioxide 29 mmol/L (22-30); Creatinine 1 0.92 mg/dL (0.66-1.25); EST GLOMERULAR FILTRATION RATE > 60.0 ML/MIN; Glucose 161 mg/dL (74-106); Potassium 3.8 mmol/L (3.5-5.1); SGOT/AST 30 U/L (17-59); SGPT/ALT 29 U/L (0-50); SODIUM 131 mmol/L (137-145); Total Protein 7.4 g/dL (6.3-8.2)
[2022-09-03] MEDS ORDERED: BABY ASPIRIN 81 MG CHEW ONE (00:59)
[2022-09-03] MEDS ORDERED: NITRO-BID 2% UD PACKETS ONE (00:59)
[2022-09-03] MEDS ORDERED: MORPHINE SULFATE 4 MG INJ IV ONE (00:59)
--- NOTE | 2022-09-03 00:59 | ERPHSYRPT ---
- History of Present Illness Time Seen by Provider: 09/03/22 00:55 Historian: patient Exam Limitations: no limitations Patient Subjective Stated Complaint: pt states "I have this pain in my chest." Triage Nursing Assessment: pt ambulated into the er; pt is axo x4; c/o chest pain; pt states 5/10 pain to chest; clear apical heart tone; strong mehreen radial pulse; strong mehreen pedal pulse; no edema present; clear lung sounds in all lobes; hypertensive; tachycardic Physician History: Patient is 67-year-old male presents to emergency department for evaluation of chest pain. Patient was at home at approximately 9:30 PM when chest pain first occurred. Patient was resting on the couch. Chest pain resolved. Patient went to sleep and awoke just prior to arrival with chest pain. Patient was nauseous diaphoretic. Patient is a diabetic. He has significant risk factors for coronary artery disease. No trauma. No fever. Symptoms are mild to moderate in intensity. No specific worsening improving factors. Patient denies a history of the same. He voices no other complaints or concerns at this time. Portions of this note were created with voice recognition technology. There may be grammatical, spelling, punctuation or sound alike errors Timing/Duration: today Activities at Onset: none Quality: aching Location: substernal Chest Pain Radiation: no radiation Severity of Pain-Max: moderate Severity of Pain-Current: mild Modifying Factors: Improves With: morphine, other Associated Symptoms: nausea, diaphoresis, chills Prior Chest Pain/Cardiac Workup: no prior chest pain Nitro Today/Relief: 0.4 mg x 1 Aspirin Treatment Today: no aspirin today Allergies/Adverse Reactions: soap Allergy (Intermediate, Verified 09/03/22 00:15) Hives Home Medications: Amlodipine Besylate 5 mg [Norvasc 5 mg] 5 mg PO BID 10/06/16 [History] Glyburide 5 mg [Micronase 5 MG] 5 mg PO DAILY 10/06/16 [History] Omeprazole 20 MG [Prilosec 20 mg] 20 mg PO DAILY 10/06/16 [History] Aspirin EC 81 mg [Ecotrin 81 mg] 81 mg PO DAILY 09/03/22 [History] Insulin Glargine [Lantus Insulin] 30 units SQ HS 09/03/22 [History] hydroCHLOROthiazide [Hydrochlorothiazide] 50 mg PO 09/03/22 [History] Hx Tetanus, Diphtheria Vaccination/Date Given: Yes (2020) Hx Influenza Vaccination/Date Given: No Hx Pneumococcal Vaccination/Date Given: Yes Travel Risk - International Travel Have you traveled outside of the country in past 3 weeks: No - Coronavirus Screening Are you exhibiting any of the following symptoms?: No Close contact with a COVID-19 positive Pt in past 14-21 Days: No - Vaccine Status Have you recieved a Covid-19 vaccination: Yes 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 - Vaccination Dates Date of 2cond Vaccination (if applicable): 12/2020 - Review of Systems Constitutional: No Symptoms, No Fever, No Chills Eyes: No Symptoms Ears, Nose, & Throat: No Symptoms Respiratory: No Symptoms, No Cough, No Dyspnea Cardiac: No Symptoms, No Chest Pain, No Edema, No Syncope Abdominal/Gastrointestinal: No Symptoms, No Abdominal Pain, No Nausea, No Vomiting, No Diarrhea Genitourinary Symptoms: No Symptoms, No Dysuria Musculoskeletal: No Symptoms, No Back Pain, No Neck Pain Skin: No Symptoms, No Rash Neurological: No Symptoms, No Dizziness, No Focal Weakness, No Sensory Changes Psychological: No Symptoms Endocrine: No Symptoms Hematologic/Lymphatic: No Symptoms Immunological/Allergic: No Symptoms All Other Systems: Reviewed and Negative - Past Medical History Pertinent Past Medical History: Yes Neurological History: No Pertinent History ENT History: No Pertinent History Cardiac History: Hypertension Respiratory History: Asthma Endocrine Medical History: Diabetes Type II Musculoskeletal History: Osteoarthritis GI Medical History: GERD, Hernia History: No Pertinent History Psycho-Social History: No Pertinent History Male Reproductive Disorders: No Pertinent History Other Medical History: was born with a hernia, three fractures on Left arm 1964, and fracture on R ankle 1965. had gonorrhea in the s. - Past Surgical History Past Surgical History: Yes Cardiac: Cardiac Catheterization - Social History Smoking Status: Former smoker Exposure to second hand smoke: Yes Drug Use: none Patient Lives Alone: No - Nursing Vital Signs Nursing Vital Signs: Initial Vital Signs Temperature 99.8 F 09/03/22 00:07 Pulse Rate 102 H 09/03/22 00:07 Respiratory Rate 20 09/03/22 00:07 Blood Pressure 146/86 09/03/22 00:07 O2 Sat by Pulse Oximetry 94 L 09/03/22 00:07 Pain Scale Pain Intensity 2 - Physical Exam General Appearance: no apparent distress, alert Eye Exam: PERRL/EOMI, eyes nml inspection Ears, Nose, Throat Exam: normal ENT inspection, TMs normal, pharynx normal, moist mucous membranes Neck Exam: normal inspection, non-tender, supple, full range of motion Respiratory Exam: normal breath sounds, lungs clear, airway intact, No respiratory distress Cardiovascular Exam: regular rate/rhythm, normal heart sounds, normal peripheral pulses Gastrointestinal/Abdomen Exam: soft, normal bowel sounds, No tenderness, No mass Back Exam: normal inspection, No CVA tenderness, No vertebral tenderness Extremity Exam: normal inspection, normal range of motion Neurologic Exam: alert, oriented x 3, cooperative, normal mood/affect, sensation nml, No motor deficits Skin Exam: normal color, warm, dry Lymphatic Exam: No adenopathy SpO2 Interpretation: normal SpO2: 95 O2 Delivery: Room Air - Course Nursing assessment & vital signs reviewed: Yes EKG Interpreted by Me: RATE (94), Sinus Rhythm, Left [place] Deviation, NORMAL INTERVALS, NORMAL QRS - Radiology Exams Chest X-ray Interpretation: Interpreted by me (Hyperinflated lungs. Osteopenia. Degenerative changes) Ordered Tests: Active Orders 24 hr Category Date Time Status Hearing Care Practitioner STAT Care 09/03/22 00:28 Active EKG-ER Only STAT Care 09/03/22 00:27 Active IV Insertion STAT Care 09/03/22 00:27 Active Pulse Oximetry (ED) STAT Care 09/03/22 00:27 Active CHEST 1 VIEW (PORTABLE) Stat Exams 09/03/22 00:28 Taken CBC W DIFF Stat Lab 09/03/22 00:40 Completed CMP Stat Lab 09/03/22 00:40 Completed TROPONIN Q4H Lab 09/03/22 00:40 Completed TROPONIN Q4H Lab 09/03/22 04:30 Ordered TROPONIN Q4H Lab 09/03/22 08:30 Ordered Transfer Order Routine Transfer 09/03/22 Ordered Medication Summary Discontinued Medications Generic Name Dose Route Start Last Admin Trade Name Freq PRN Reason Stop Dose Admin Aspirin 243 mg 09/03/22 00:53 09/03/22 01:00 Aspirin 81 Mg Tab.Chew PO 09/03/22 00:54 243 mg STAT ONE Administration Aspirin Confirm 09/03/22 00:59 Aspirin 81 Mg Tab.Chew Administered 09/03/22 01:00 Dose 324 mg .ROUTE .STK-MED ONE Morphine Sulfate 4 mg 09/03/22 00:59 09/03/22 01:03 Morphine Sulfate 4 Mg/Ml Injection IV 09/03/22 01:00 4 mg STAT ONE Administration Morphine Sulfate Confirm 09/03/22 01:02 Morphine Sulfate 4 Mg/Ml Injection Administered 09/03/22 01:03 Dose 4 mg .ROUTE .STK-MED ONE Nitroglycerin 1 gm 09/03/22 00:54 09/03/22 01:00 Nitroglycerin 1 Gm Packet TOP 09/03/22 00:55 1 gm STAT ONE Administration Nitroglycerin Confirm 09/03/22 00:59 Nitroglycerin 1 Gm Packet Administered 09/03/22 01:00 Dose 1 gm .ROUTE .STK-MED ONE Lab/Rad Data: Laboratory Result Diagrams 09/03/22 00:40 09/03/22 00:40 Laboratory Results 09/03/22 09/03/22 09/03/22 Range/Units 01:30 00:40 00:40 WBC (4.0-10.5) x10^3/uL RBC (4.1-5.6) x10^6/uL Hgb (12.5-18.0) g/dL Hct (42-50) % MCV (78-100) fL MCH (26-32) pg MCHC (32-36) g/dL RDW (11.5-14.0) % Plt Count (150-450) x10^3/uL MPV (7.5-11.0) fL Gran % (36.0-66.0) % Immature Gran % (Auto) (0.00-0.4) % Nucleat RBC Rel Count (0.00-0.1) % Eos # (Auto) (0-0.5) x10^3/uL Immature Gran # (Auto) (0.00-0.03) x10^3u/L Absolute Lymphs (auto) (1.0-4.6) x10^3/uL Absolute Monos (auto) (0.0-1.3) x10^3/uL Absolute Nucleated RBC (0.00-0.01) x10^3u/L Lymphocytes % (24.0-44.0) % Monocytes % (0.0-12.0) % Eosinophils % (0.00-5.0) % Basophils % (0.0-0.4) % Absolute Granulocytes (1.4-6.9) x10^3/uL Basophils # (0-0.4) x10^3/uL Sodium 131 L (137-145) mmol/L Potassium 3.8 (3.5-5.1) mmol/L Chloride 97 L (98-107) mmol/L Carbon Dioxide 29 (22-30) mmol/L Anion Gap 9.1 (5-15) MEQ/L BUN 16 (9-20) mg/dL Creatinine 0.92 (0.66-1.25) mg/dL Estimated GFR > 60.0 ML/MIN Glucose 161 H (74-106) mg/dL Calcium 8.3 L (8.4-10.2) mg/dL Total Bilirubin 1.20 (0.2-1.3) mg/dL AST 30 (17-59) U/L ALT 29 (0-50) U/L Alkaline Phosphatase 59 (38-126) U/L Troponin I < 0.012 (0.000-0.034) ng/mL Serum Total Protein 7.4 (6.3-8.2) g/dL Albumin 4.3 (3.5-5.0) g/dL Influenza Type A Ag NEGATIVE (NEGATIVE) Influenza Type B Ag NEGATIVE (NEGATIVE) RSV (PCR) NEGATIVE (Negative) SARS-CoV-2 (PCR) NEGATIVE (NEGATIVE) 09/03/22 Range/Units 00:40 WBC 11.9 H (4.0-10.5) x10^3/uL RBC 4.48 (4.1-5.6) x10^6/uL Hgb 14.6 (12.5-18.0) g/dL Hct 42.2 (42-50) % MCV 94.2 (78-100) fL MCH 32.6 H (26-32) pg MCHC 34.6 (32-36) g/dL RDW 12.3 (11.5-14.0) % Plt Count 266 (150-450) x10^3/uL MPV 9.9 (7.5-11.0) fL Gran % 70.3 H (36.0-66.0) % Immature Gran % (Auto) 0.4 (0.00-0.4) % Nucleat RBC Rel Count 0.0 (0.00-0.1) % Eos # (Auto) 0.14 (0-0.5) x10^3/uL Immature Gran # (Auto) 0.05 H (0.00-0.03) x10^3u/L Absolute Lymphs (auto) 2.12 (1.0-4.6) x10^3/uL Absolute Monos (auto) 1.17 (0.0-1.3) x10^3/uL Absolute Nucleated RBC 0.00 (0.00-0.01) x10^3u/L Lymphocytes % 17.9 L (24.0-44.0) % Monocytes % 9.9 (0.0-12.0) % Eosinophils % 1.2 (0.00-5.0) % Basophils % 0.3 (0.0-0.4) % Absolute Granulocytes 8.33 H (1.4-6.9) x10^3/uL Basophils # 0.04 (0-0.4) x10^3/uL Sodium (137-145) mmol/L Potassium (3.5-5.1) mmol/L Chloride (98-107) mmol/L Carbon Dioxide (22-30) mmol/L Anion Gap (5-15) MEQ/L BUN (9-20) mg/dL Creatinine (0.66-1.25) mg/dL Estimated GFR ML/MIN Glucose (74-106) mg/dL Calcium (8.4-10.2) mg/dL Total Bilirubin (0.2-1.3) mg/dL AST (17-59) U/L ALT (0-50) U/L Alkaline Phosphatase (38-126) U/L Troponin I (0.000-0.034) ng/mL Serum Total Protein (6.3-8.2) g/dL Albumin (3.5-5.0) g/dL Influenza Type A Ag (NEGATIVE) Influenza Type B Ag (NEGATIVE) RSV (PCR) (Negative) SARS-CoV-2 (PCR) (NEGATIVE) - Progress Progress: improved Air Movement: good Progress Note: Patient reassessed. Symptoms improved. Minimal chest discomfort at this time. Patient received aspirin and nitro in our ED. Initial troponin negative. Sal diaz has a heart score of 5. 09/03/22 02:[address] Lovett who excepts admission to observation. Plan of care discussed with patient. He agrees to admission at [facility] for further evaluation and treatment. Portions of this note were created with voice recognition technology. There may be grammatical, spelling, punctuation or sound alike errors 09/03/22 02:49 Blood Culture(s) Obtained: No Antibiotics given: No Discussed with Dr.: Shira Will see patient in: hospital (observation) Counseled pt/family regarding: lab results, diagnosis, rad results - Departure Departure Disposition: Home Clinical Impression: ACS (acute coronary syndrome), Chest pain, Hyponatremia Condition: Stable Critical Care Time: No Referrals: KATHRYN KHAN MD [Primary Care Provider] - Follow up/PCP as directed
[2022-09-03] MEDS ORDERED: MORPHINE SULFATE 4 MG INJ ONE (01:02)
[2022-09-03 02:25] LABS: INFLUENZA A NEGATIVE (NEGATIVE); INFLUENZA B NEGATIVE (NEGATIVE); RESPIRATORY SYNCTIAL VIRUS NEGATIVE (Negative); SARS-CoV-2 Xpert Express NEGATIVE (NEGATIVE)
[2022-09-03] MEDS ORDERED: TYLENOL 325 MG PO PRN (05:40)
[2022-09-03] MEDS ORDERED: MILK OF MAGNESIA 30 ML PO PRN (05:40)
[2022-09-03] MEDS ORDERED: MAALOX ES 30 ML UNIT DOSE PO PRN (05:40)
[2022-09-03] MEDS ORDERED: Senokot-S Tablet PO PRN (05:40)
[2022-09-03] MEDS ORDERED: Zofran 4 MG/2 ML VIAL IV PRN (05:40)
[2022-09-03] MEDS ORDERED: Micronase 5 MG PO SCH (08:00)
--- NOTE | 2022-09-03 08:50 | XRAY ---
Indication: Chest pain. Comparison: August 20, 2022 Portable chest remains hyperinflated and clear with a few incidental tiny calcified granulomas. Heart not enlarged. No new/acute findings.
--- NOTE | 2022-09-03 09:24 | PCM.SSS ---
History of Present Illness - Chief Complaint Chief Complaint: ACS History of Present Illness: is a 67 year old male patient of Dr Khan who presented to the ER with acute onset of chest pain at rest. Washta like someone was pushing in on his chest, there was no shortness of breath, no nausea/vomiting, no diaphoresis. He has no previous cardiac history. - Review of Systems Constitutional: No Fever, No Chills Respiratory: No Cough, No Short Of Breath Cardiac: Chest Pain Abdominal/Gastrointestinal: No Abdominal Pain, No Nausea, No Vomiting, No Diarrhea Genitourinary Symptoms: No Dysuria Skin: No Rash All Other Systems: Reviewed and Negative Medications & Allergies Home Medications: Home Medication List Amlodipine Besylate 5 mg [Norvasc 5 mg] 5 mg PO BID 10/06/16 [History Confirmed 09/03/22] Glyburide 5 mg [Micronase 5 MG] 5 mg PO DAILY 10/06/16 [History Confirmed 09/03/22] Omeprazole 20 MG [Prilosec 20 mg] 20 mg PO DAILY 10/06/16 [History Confirmed 09/03/22] Aspirin EC 81 mg [Ecotrin 81 mg] 81 mg PO DAILY 09/03/22 [History Confirmed 09/03/22] Insulin Glargine [Lantus Insulin] 30 units SQ HS 09/03/22 [History Confirmed 09/03/22] hydroCHLOROthiazide [Hydrochlorothiazide] 50 mg PO DAILY 09/03/22 [History Confirmed 09/03/22] Allergies/Adverse Reactions: Allergies Allergy/AdvReac Type Severity Reaction Status Date / Time soap Allergy Intermediate Hives Verified 09/03/22 00:15 - Past Medical History Past Medical History: Yes Neurological History: No Pertinent History ENT History: No Pertinent History Cardiac History: Hypertension Respiratory History: Asthma, COPD Endocrine Medical History: Diabetes Type II Musculoskelatal History: Osteoarthritis GI Medical History: GERD, Hernia History: No Pertinent History Pyscho-Social History: No Pertinent History Male Reproductive Disorders: No Pertinent History Comment: was born with a hernia, three fractures on Left arm 1964, and fracture on R ankle 1965. had gonorrhea in the s. - Past Surgical History Past Surgical History: Yes Neuro Surgical History: No Pertinent History Cardiac History: Cardiac Catheterization Respiratory Surgery: No Pertinent History GI Surgical History: No Pertinent History Genitourinary Surgical Hx: No Pertinent History Musculskeletal Surgical Hx: No Pertinent History Male Surgical History: No Pertinent History - Social History Smoking Status: Former smoker How long have you smoked: 25 years Exposure to second hand smoke: Yes Alcohol: Occasionally Drug Use: none - Physical Exam Vital Signs: Vital Signs - 24 hr Temp Pulse Pulse Resp BP Pulse Ox 09/03/22 07:36 98.7 F 103 H 18 124/73 93 L 09/03/22 06:32 94 H 18 93 L 09/03/22 05:56 97.8 F 94 H 20 99/58 91 L 09/03/22 04:00 102 H 123/78 93 L 09/03/22 03:00 101 H 112/75 92 L 09/03/22 02:50 95 09/03/22 02:00 92 H 110/78 92 L 09/03/22 01:07 98 H 22 113/75 92 L 09/03/22 00:36 95 09/03/22 00:07 99.8 F 102 H 98 H 20 146/86 94 L General Appearance: no apparent distress Neurologic Exam: alert, oriented x 3, cooperative, normal mood/affect, nml cerebellar function, nml station & gait, sensation nml, No motor deficits Respiratory Exam: normal breath sounds, lungs clear, No respiratory distress Cardiovascular Exam: regular rate/rhythm, normal heart sounds, normal peripheral pulses Gastrointestinal/Abdomen Exam: soft, normal bowel sounds, No tenderness, No mass Skin Exam: normal color, warm, dry, No rash Results - Labs Lab/Micro Results: Lab Results-Last 24 Hours 09/03/22 09/03/22 09/03/22 Range/Units 00:40 00:40 00:40 WBC 11.9 H (4.0-10.5) x10^3/uL RBC 4.48 (4.1-5.6) x10^6/uL Hgb 14.6 (12.5-18.0) g/dL Hct 42.2 (42-50) % MCV 94.2 (78-100) fL MCH 32.6 H (26-32) pg MCHC 34.6 (32-36) g/dL RDW 12.3 (11.5-14.0) % Plt Count 266 (150-450) x10^3/uL MPV 9.9 (7.5-11.0) fL Gran % 70.3 H (36.0-66.0) % Immature Gran % (Auto) 0.4 (0.00-0.4) % Nucleat RBC Rel Count 0.0 (0.00-0.1) % Eos # (Auto) 0.14 (0-0.5) x10^3/uL Immature Gran # (Auto) 0.05 H (0.00-0.03) x10^3u/L Absolute Lymphs (auto) 2.12 (1.0-4.6) x10^3/uL Absolute Monos (auto) 1.17 (0.0-1.3) x10^3/uL Absolute Nucleated RBC 0.00 (0.00-0.01) x10^3u/L Lymphocytes % 17.9 L (24.0-44.0) % Monocytes % 9.9 (0.0-12.0) % Eosinophils % 1.2 (0.00-5.0) % Basophils % 0.3 (0.0-0.4) % Absolute Granulocytes 8.33 H (1.4-6.9) x10^3/uL Basophils # 0.04 (0-0.4) x10^3/uL Sodium 131 L (137-145) mmol/L Potassium 3.8 (3.5-5.1) mmol/L Chloride 97 L (98-107) mmol/L Carbon Dioxide 29 (22-30) mmol/L Anion Gap 9.1 (5-15) MEQ/L BUN 16 (9-20) mg/dL Creatinine 0.92 (0.66-1.25) mg/dL Estimated GFR > 60.0 ML/MIN Glucose 161 H (74-106) mg/dL POC Glucometer (74 to 106) mg/dL Calcium 8.3 L (8.4-10.2) mg/dL Total Bilirubin 1.20 (0.2-1.3) mg/dL AST 30 (17-59) U/L ALT 29 (0-50) U/L Alkaline Phosphatase 59 (38-126) U/L Troponin I < 0.012 (0.000-0.034) ng/mL Serum Total Protein 7.4 (6.3-8.2) g/dL Albumin 4.3 (3.5-5.0) g/dL Influenza Type A Ag (NEGATIVE) Influenza Type B Ag (NEGATIVE) RSV (PCR) (Negative) SARS-CoV-2 (PCR) (NEGATIVE) 09/03/22 09/03/22 09/03/22 Range/Units 01:30 06:14 06:56 WBC (4.0-10.5) x10^3/uL RBC (4.1-5.6) x10^6/uL Hgb (12.5-18.0) g/dL Hct (42-50) % MCV (78-100) fL MCH (26-32) pg MCHC (32-36) g/dL RDW (11.5-14.0) % Plt Count (150-450) x10^3/uL MPV (7.5-11.0) fL Gran % (36.0-66.0) % Immature Gran % (Auto) (0.00-0.4) % Nucleat RBC Rel Count (0.00-0.1) % Eos # (Auto) (0-0.5) x10^3/uL Immature Gran # (Auto) (0.00-0.03) x10^3u/L Absolute Lymphs (auto) (1.0-4.6) x10^3/uL Absolute Monos (auto) (0.0-1.3) x10^3/uL Absolute Nucleated RBC (0.00-0.01) x10^3u/L Lymphocytes % (24.0-44.0) % Monocytes % (0.0-12.0) % Eosinophils % (0.00-5.0) % Basophils % (0.0-0.4) % Absolute Granulocytes (1.4-6.9) x10^3/uL Basophils # (0-0.4) x10^3/uL Sodium (137-145) mmol/L Potassium (3.5-5.1) mmol/L Chloride (98-107) mmol/L Carbon Dioxide (22-30) mmol/L Anion Gap (5-15) MEQ/L BUN (9-20) mg/dL Creatinine (0.66-1.25) mg/dL Estimated GFR ML/MIN Glucose (74-106) mg/dL POC Glucometer 185 H (74 to 106) mg/dL Calcium (8.4-10.2) mg/dL Total Bilirubin (0.2-1.3) mg/dL AST (17-59) U/L ALT (0-50) U/L Alkaline Phosphatase (38-126) U/L Troponin I < 0.012 (0.000-0.034) ng/mL Serum Total Protein (6.3-8.2) g/dL Albumin (3.5-5.0) g/dL Influenza Type A Ag NEGATIVE (NEGATIVE) Influenza Type B Ag NEGATIVE (NEGATIVE) RSV (PCR) NEGATIVE (Negative) SARS-CoV-2 (PCR) NEGATIVE (NEGATIVE) Accuchecks Date 09/03/22 Time 06:56 - Radiology Impressions Radiology Exams & Impressions: Radiology Procedures Category Date Time Status CHEST 1 VIEW (PORTABLE) Stat Exams 09/03/22 00:28 Completed - Other Procedures and Tests Respiratory Therapy 09/03/22 07:13 Respiratory Therapy Assessment DAILY 09/03/22 08:27 EKG ROUTINE 09/04/22 05:00 EKG DAILY 09/05/22 05:00 EKG DAILY 09/06/22 05:00 EKG DAILY Assessment/Plan (1) Chest pain Current Visit: Yes Status: Acute Assessment & Plan: complete SC r/o, patient is pain-free today. 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 insulin use status Diabetes mellitus complication status: with hyperglycemia Qualified Code(s): E11.65 - Type 2 diabetes mellitus with hyperglycemia Hospital Summary - Vitals & Intake/Output Vital Signs: Vital Signs Temperature 98.7 F 09/03/22 07:36 Pulse Rate 103 H 09/03/22 07:36 Respiratory Rate 18 09/03/22 07:36 Blood Pressure 124/73 09/03/22 07:36 O2 Sat by Pulse Oximetry 93 L 09/03/22 07:36 Intake & Output: Intake & Output 08/31/22 09/01/22 09/02/22 09/03/22 11:59 11:59 11:59 11:59 Weight 109.8 kg - Lab Result Diagrams: 09/03/22 00:40 09/03/22 00:40 Lab Results-Last 24 Hrs: Lab Results-Last 24 Hours 09/03/22 09/03/22 09/03/22 Range/Units 00:40 00:40 00:40 WBC 11.9 H (4.0-10.5) x10^3/uL RBC 4.48 (4.1-5.6) x10^6/uL Hgb 14.6 (12.5-18.0) g/dL Hct 42.2 (42-50) % MCV 94.2 (78-100) fL MCH 32.6 H (26-32) pg MCHC 34.6 (32-36) g/dL RDW 12.3 (11.5-14.0) % Plt Count 266 (150-450) x10^3/uL MPV 9.9 (7.5-11.0) fL Gran % 70.3 H (36.0-66.0) % Immature Gran % (Auto) 0.4 (0.00-0.4) % Nucleat RBC Rel Count 0.0 (0.00-0.1) % Eos # (Auto) 0.14 (0-0.5) x10^3/uL Immature Gran # (Auto) 0.05 H (0.00-0.03) x10^3u/L Absolute Lymphs (auto) 2.12 (1.0-4.6) x10^3/uL Absolute Monos (auto) 1.17 (0.0-1.3) x10^3/uL Absolute Nucleated RBC 0.00 (0.00-0.01) x10^3u/L Lymphocytes % 17.9 L (24.0-44.0) % Monocytes % 9.9 (0.0-12.0) % Eosinophils % 1.2 (0.00-5.0) % Basophils % 0.3 (0.0-0.4) % Absolute Granulocytes 8.33 H (1.4-6.9) x10^3/uL Basophils # 0.04 (0-0.4) x10^3/uL Sodium 131 L (137-145) mmol/L Potassium 3.8 (3.5-5.1) mmol/L Chloride 97 L (98-107) mmol/L Carbon Dioxide 29 (22-30) mmol/L Anion Gap 9.1 (5-15) MEQ/L BUN 16 (9-20) mg/dL Creatinine 0.92 (0.66-1.25) mg/dL Estimated GFR > 60.0 ML/MIN Glucose 161 H (74-106) mg/dL POC Glucometer (74 to 106) mg/dL Calcium 8.3 L (8.4-10.2) mg/dL Total Bilirubin 1.20 (0.2-1.3) mg/dL AST 30 (17-59) U/L ALT 29 (0-50) U/L Alkaline Phosphatase 59 (38-126) U/L Troponin I < 0.012 (0.000-0.034) ng/mL Serum Total Protein 7.4 (6.3-8.2) g/dL Albumin 4.3 (3.5-5.0) g/dL Influenza Type A Ag (NEGATIVE) Influenza Type B Ag (NEGATIVE) RSV (PCR) (Negative) SARS-CoV-2 (PCR) (NEGATIVE) 09/03/22 09/03/22 09/03/22 Range/Units 01:30 06:14 06:56 WBC (4.0-10.5) x10^3/uL RBC (4.1-5.6) x10^6/uL Hgb (12.5-18.0) g/dL Hct (42-50) % MCV (78-100) fL MCH (26-32) pg MCHC (32-36) g/dL RDW (11.5-14.0) % Plt Count (150-450) x10^3/uL MPV (7.5-11.0) fL Gran % (36.0-66.0) % Immature Gran % (Auto) (0.00-0.4) % Nucleat RBC Rel Count (0.00-0.1) % Eos # (Auto) (0-0.5) x10^3/uL Immature Gran # (Auto) (0.00-0.03) x10^3u/L Absolute Lymphs (auto) (1.0-4.6) x10^3/uL Absolute Monos (auto) (0.0-1.3) x10^3/uL Absolute Nucleated RBC (0.00-0.01) x10^3u/L Lymphocytes % (24.0-44.0) % Monocytes % (0.0-12.0) % Eosinophils % (0.00-5.0) % Basophils % (0.0-0.4) % Absolute Granulocytes (1.4-6.9) x10^3/uL Basophils # (0-0.4) x10^3/uL Sodium (137-145) mmol/L Potassium (3.5-5.1) mmol/L Chloride (98-107) mmol/L Carbon Dioxide (22-30) mmol/L Anion Gap (5-15) MEQ/L BUN (9-20) mg/dL Creatinine (0.66-1.25) mg/dL Estimated GFR ML/MIN Glucose (74-106) mg/dL POC Glucometer 185 H (74 to 106) mg/dL Calcium (8.4-10.2) mg/dL Total Bilirubin (0.2-1.3) mg/dL AST (17-59) U/L ALT (0-50) U/L Alkaline Phosphatase (38-126) U/L Troponin I < 0.012 (0.000-0.034) ng/mL Serum Total Protein (6.3-8.2) g/dL Albumin (3.5-5.0) g/dL Influenza Type A Ag NEGATIVE (NEGATIVE) Influenza Type B Ag NEGATIVE (NEGATIVE) RSV (PCR) NEGATIVE (Negative) SARS-CoV-2 (PCR) NEGATIVE (NEGATIVE) Micro Results-Entire Visit: Accuchecks Date 09/03/22 Time 06:56 - Radiology Exams Ordered Rad Exams-Entire Visit: Radiology Procedures Category Date Time Status CHEST 1 VIEW (PORTABLE) Stat Exams 09/03/22 00:28 Completed - Procedures and Test Procedures and Tests throughout Hospitalization: Therapy Orders & Screens 09/03/22 05:40 EKG [id number],QAMX3,PRN Comment: 09/03/22 07:00 RT Screen per Nursing Assess ONCE Comment: Protocol Order Physician Instructions: Greater than 3 points order RT Admission Screen Reason For Exam: Triggered on Admission Diagnosis: ACS Diagnosis: ACS Pneumonia: No Home O2: No Asthma: Yes CHF: No Home CPAP/BIPAP: No Home Nebs/MDI: Yes Total Points: 9 09/03/22 07:13 Respiratory Therapy Assessment DAILY Comment: Diagnosis: ACS 09/03/22 08:27 EKG ROUTINE Comment: Diagnosis: ACS 09/04/22 05:00 EKG DAILY Comment: Diagnosis: ACS 09/05/22 05:00 EKG DAILY Comment: Diagnosis: ACS 09/06/22 05:00 EKG DAILY Comment: Diagnosis: ACS - Discharge Disposition: Home, Self-Care Condition: Stable Prescriptions: Continue Amlodipine Besylate 5 mg [Norvasc 5 mg] 5 mg PO BID Omeprazole 20 MG [Prilosec 20 mg] 20 mg PO DAILY Glyburide 5 mg [Micronase 5 MG] 5 mg PO DAILY Aspirin EC 81 mg [Ecotrin 81 mg] 81 mg PO DAILY Insulin Glargine [Lantus Insulin] 30 units SQ HS hydroCHLOROthiazide [Hydrochlorothiazide] 50 mg PO DAILY Outpatient Orders: Stress Test: Cardiolyte Facility: [facility], Location: RESPIRATORY THERAPY Instructions: Angina Follow up with: KATHRYN KHAN MD [Primary Care Provider] - 1 Week
[2022-09-03] MEDS ORDERED: NORVASC 5 MG PO SCH (10:00)
[2022-09-03] MEDS ORDERED: Protonix 40MG Tablet PO SCH (10:00)
[2022-09-03] MEDS ORDERED: hydroDIURIL 25 MG PO SCH (10:00)
[2022-09-03] MEDS ORDERED: ECOTRIN 81 MG PO SCH (10:00)
[2022-09-03] MEDS ORDERED: NON-FORMULARY ITEM (Hydrochlorothiazide [Hydrochlorothiazide] 50 MG Tablet) PO SCH (10:00)
[2022-09-03] MEDS ORDERED: NON-FORMULARY ITEM (Omeprazole 20 Mg [Prilosec 20 Mg] 20 MG Capsule.Dr) PO SCH (10:00)
[2022-09-03] MEDS ORDERED: FLUZONE HIGH-DOSE QUAD 2022-23 IM ONE (10:00)
[2022-09-03 11:21] VITALS: BP 110/58; PULSE 97; O2SAT 92
[2022-09-03] MEDS ORDERED: Lantus Insulin SQ SCH (22:00)
== END 2022-09-03 12:51 | disposition home or self-care (01) ==
LOC: ED 00:06 → MED SURG 05:07
PROVIDERS: ADMIT Family Medicine; ATTEND General Practice
DX: R07.9 Chest pain, unspecified (principal); E11.65 Type 2 diabetes mellitus with hyperglycemia; I10 Essential (primary) hypertension; Z79.899 Other long term (current) drug therapy; Z20.828 Contact with and (suspected) exposure to other viral communicable diseases
CPT/HCPCS: 0241U; 36000; 36415; 71045; 80053; 82947; 84484; 85025; 93005; 93041; 93268; 94760; 96374; 99285; G0008; G0378; 90662; J2270; A9270-GY

== ENCOUNTER 2023-03-03 18:16 | Emergency (ER) | payer MEDICARE ==
[2023-03-03 18:45] VITALS: O2SAT 96
[2023-03-03] MEDS ORDERED: BACIGUENT PACKET ONE (18:48)
--- NOTE | 2023-03-03 18:53 | ERPHSYRPT ---
- History of Present Illness Time Seen by Provider: 03/03/23 18:19 Source: patient Exam Limitations: no limitations Patient Subjective Stated Complaint: Lacaration Triage Nursing Assessment: Patient ambulated back to ED and transferred self to bed. Patient A+O X3 Patient's skin pink, warm and dry. Patient states he was moving a trailer to a hitch and his arm got cut by the hitch. Patient has large skin tear noted to left forearm. Patient compains of pain 2/10 to left forearm. Physician History: Left arm skin tear. Up-to-date on vaccinations and tetanus shot. No other trauma. Did not hit his head. They deny being on any blood thinners. No Eliquis, Xarelto. Patient does appear hot and sweaty. He states this is from working outside. Allergies/Adverse Reactions: soap Allergy (Intermediate, Verified 03/03/23 18:32) Hives Home Medications: Amlodipine Besylate 5 mg [Norvasc 5 mg] 5 mg PO BID 10/06/16 [History] Glyburide 5 mg [Micronase 5 MG] 5 mg PO DAILY 10/06/16 [History] Omeprazole 20 MG [Prilosec 20 mg] 20 mg PO DAILY 10/06/16 [History] Aspirin EC 81 mg [Ecotrin 81 mg] 81 mg PO DAILY 09/03/22 [History] Insulin Glargine [Lantus Insulin] 30 units SQ HS 09/03/22 [History] hydroCHLOROthiazide [Hydrochlorothiazide] 50 mg PO DAILY 09/03/22 [History] Hx Tetanus, Diphtheria Vaccination/Date Given: Yes Hx Influenza Vaccination/Date Given: Yes Hx Pneumococcal Vaccination/Date Given: No Immunizations Up to Date: Yes Travel Risk - International Travel Have you traveled outside of the country in past 3 weeks: No - Coronavirus Screening Are you exhibiting any of the following symptoms?: No Close contact with a COVID-19 positive Pt in past 14-21 Days: No - Vaccine Status Have you recieved a Covid-19 vaccination: Yes 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 - Vaccination Dates Date of 2cond Vaccination (if applicable): 2020 - Review of Systems Constitutional: No Fever, No Chills Eyes: No Symptoms Ears, Nose, & Throat: No Symptoms Respiratory: No Cough, No Dyspnea Cardiac: No Chest Pain, No Edema, No Syncope Abdominal/Gastrointestinal: No Abdominal Pain, No Nausea, No Vomiting, No Diarrhea Genitourinary Symptoms: No Dysuria Musculoskeletal: No Back Pain, No Neck Pain Skin: Other (Left arm skin tear), No Rash Neurological: No Dizziness, No Focal Weakness, No Sensory Changes Psychological: No Symptoms Endocrine: No Symptoms All Other Systems: Reviewed and Negative - Past Medical History Pertinent Past Medical History: Yes Neurological History: No Pertinent History ENT History: No Pertinent History Cardiac History: Hypertension Respiratory History: Asthma, COPD Endocrine Medical History: Diabetes Type II Musculoskeletal History: Osteoarthritis GI Medical History: GERD, Hernia History: No Pertinent History Psycho-Social History: No Pertinent History Male Reproductive Disorders: No Pertinent History Other Medical History: was born with a hernia, three fractures on Left arm 1964, and fracture on R ankle 1965. had gonorrhea in the s. - Past Surgical History Past Surgical History: Yes Neuro Surgical History: No Pertinent History Cardiac: Cardiac Catheterization Respiratory: No Pertinent History Gastrointestinal: No Pertinent History Genitourinary: No Pertinent History Musculoskeletal: No Pertinent History Male Surgical History: No Pertinent History - Social History Smoking Status: Former smoker How long have you smoked: 25 years Exposure to second hand smoke: Yes Drug Use: none Patient Lives Alone: No - Nursing Vital Signs Nursing Vital Signs: Initial Vital Signs Temperature 97.6 F 03/03/23 18:32 Pulse Rate 92 H 03/03/23 18:32 Respiratory Rate 18 03/03/23 18:32 Blood Pressure 118/58 03/03/23 18:32 O2 Sat by Pulse Oximetry 96 03/03/23 18:32 Pain Scale Pain Intensity 2 - Physical Exam General Appearance: no apparent distress, alert Eye Exam: PERRL/EOMI, eyes nml inspection Ears, Nose, Throat Exam: normal ENT inspection, TMs normal, pharynx normal, moist mucous membranes Neck Exam: normal inspection, non-tender, supple, full range of motion Respiratory Exam: normal breath sounds, lungs clear, No respiratory distress Cardiovascular Exam: regular rate/rhythm, normal heart sounds, normal peripheral pulses Gastrointestinal/Abdomen Exam: soft, normal bowel sounds, No tenderness, No mass Back Exam: normal inspection, normal range of motion, No CVA tenderness, No vertebral tenderness Extremity Exam: normal inspection, normal range of motion, pelvis stable, other (Left arm demonstrates 4 cm x 10 cm area of superficial skin tear. No underlying laceration. Clean wound margins, no signs of foreign body on exploration. Neurovascular intact distal to the injury. No underlying arterial issues 2+ pulses 2+ cap refill.) Neurologic Exam: alert, oriented x 3, cooperative, normal mood/affect, nml cerebellar function, nml station & gait, sensation nml, No motor deficits Skin Exam: normal color, warm, dry, No rash Lymphatic Exam: No adenopathy SpO2: 96 - Course Nursing assessment & vital signs reviewed: Yes - Progress Progress: improved Progress Note: 03/03/23 18:52 Wound care per nursing protocols. Patient is up-to-date on Tdap shot. Plan for antibiotic going home to cover for any secondary infections. I did educate patient on basic wound care issues. He will need close follow-up with his PCP. May return here sooner for new or changing symptoms Counseled pt/family regarding: diagnosis, need for follow-up - Departure Departure Disposition: Home Clinical Impression: Skin tear of left upper arm without complication Condition: Stable Critical Care Time: No Referrals: KATHRYN KHAN MD [Primary Care Provider] - Follow up/PCP as directed Instructions: Wound Care (DC) Prescriptions: Cephalexin Mh 500 mg [Keflex 500 mg] 500 mg PO TID #21 cap
[2023-03-03] MEDS ORDERED: BACIGUENT PACKET TP ONE (18:57)
[2023-03-03 18:59] VITALS: BP 128/73; PULSE 78
== END 2023-03-03 19:05 | disposition home or self-care (01) ==
LOC: ED 18:16
DX: S51.812A Laceration without foreign body of left forearm, initial encounter (principal); W26.8XXA Contact with other sharp object(s), not elsewhere classified, initial encounter; I10 Essential (primary) hypertension; E11.9 Type 2 diabetes mellitus without complications; Z79.84 Long term (current) use of oral hypoglycemic drugs; Z79.4 Long term (current) use of insulin; Z79.899 Other long term (current) drug therapy
CPT/HCPCS: 99281; A9270-GY

== ENCOUNTER 2023-05-31 10:07 | Day surgery (SDC) | payer MEDICARE ==
--- NOTE | 2023-05-31 09:06 | HP ---
DATE OF SURGERY: 05/31/2023 HISTORY OF PRESENT ILLNESS: The patient is a 68-year-old with last colonoscopy ten years ago. No bloody stools. No change in bowel movements. No new pain. Family history unknown colon cancer. PAST MEDICAL HISTORY: Hypertension, asthma, chronic obstructive pulmonary disease, gastroesophageal reflux disease, sleep apnea, diabetes mellitus type II, neuropathy. PAST SURGICAL HISTORY: Colonoscopy. MEDICATIONS: Lisinopril, amlodipine, Lantus, glyburide, Symbicort, hydrochlorothiazide. ALLERGIES: NKDA. SOAP (HIVES). FAMILY HISTORY: Dementia. He later reported question whether his father had colon cancer or not. He reported he is not sure if it was colon cancer or not. SOCIAL HISTORY: Former smoking. Occasional alcohol use. REVIEW OF SYSTEMS: Fourteen systems reviewed. No chest pain or palpitations. Otherwise pertinent for as noted above. PHYSICAL EXAMINATION: Height 6 foot. BMI 30. GENERAL: No acute distress. HEENT: Sclerae nonicteric. EOMI. Oral mucous membranes moist. NECK: No JVD. CHEST: Equal excursion, nonlabored breathing. CVS: Regular rate and rhythm. ABDOMEN: Soft. EXTREMITIES: No significant edema. NEURO: Alert, oriented, moving extremities symmetrically. RECTAL: Deferred timed to endoscopy exam. PSYCH: Appropriate mood and affect. SKIN: Dry. IMPRESSION: He needs follow up screening colonoscopy, prior history of polyps. He was shown the risk sheet and explained the procedure in detail but not limited to bleeding or infection, risk of bowel injury or perforation, risk of missed or nondiagnosis or incomplete exam possibly requiring barium enema, other studies or procedures, general risk of anesthesia or sedation, risk of bowel prep but not limited to. Consent obtained. Will proceed with outpatient follow up screening colonoscopy under MAC anesthesia. Otherwise continue medication for diabetes, chronic obstructive pulmonary disease, hypertension, reflux and sleep apnea. Comorbidities as noted above.
[2023-05-31] MEDS ORDERED: Lactated Ringers 1,000 ML IV ONE (11:04)
[2023-05-31] MEDS: Lactated Ringers 1,000 ML IV SCH ×2 (11:06→11:17)
[2023-05-31] MEDS ORDERED: Xylocaine-Mpf 2% 5 Ml Vial ONE (12:30)
[2023-05-31] MEDS ORDERED: DIPRIVAN 200 MG/20 ML IV ONE (12:30)
[2023-05-31] MEDS ORDERED: Versed 2 MG/2 ML Injection ONE (12:30)
[2023-05-31 13:27] VITALS: RESP 16
[2023-05-31 13:37] VITALS: BP 106/69; PULSE 69; O2SAT 98
[2023-05-31 13:45] VITALS: TEMP 97.2
--- NOTE | 2023-06-01 11:57 | OP ---
SURGERY DATE/TIME: 05/31/2023 1230 PREOPERATIVE DIAGNOSIS: Need for screening colonoscopy with prior history of polyps. POSTOPERATIVE DIAGNOSES: 1) Small polyps. 2) Some internal hemorrhoids, some thrombosis in external hemorrhoid. 3) Fair prep. 4) Diverticulosis. 5) ASA Class III. 6) Withdrawal time was at least ten minutes. PROCEDURES: 1) Colonoscopy cecum. 2) Hot biopsy polypectomy transverse colon early polyp versus hyperplastic lesion. 3) Hot biopsy polypectomy of two small early polyps versus hyperplastic lesion sigmoid colon x2. SURGEON: Dr. Ryan Lisa. ANESTHESIA: MAC. ESTIMATED BLOOD LOSS: Minimal. INDICATIONS: As noted above, risks and benefits explained in detail but not limited to and consent obtained. DESCRIPTION OF PROCEDURE AND FINDINGS: The patient is taken to the endoscopy room. MAC anesthesia induced. After official time out and no disagreement with planned procedure, digital rectal exam did not reveal any rectal masses. Video colonoscope inserted and passed up through the tortuous sigmoid, descending, transverse and ascending colon around to the cecum. Appendiceal orifice and valve well visualized. Prep overall was fair, some areas were really clean and some areas had some liquidy semisolid stool that was suctioned and irrigated as clear as possible. ASA Class II. The scope is carefully withdrawn over the next 10 minutes. He did have some diverticulosis mainly in the left colon, mild diverticulosis. In the transverse colon small early polyp versus hyperplastic lesion removed with hot biopsy forceps with brief bursts of cautery. Good hemostasis noted. Scope pulled back into early polyps in the sigmoid colon versus hyperplastic lesion removed with hot biopsy forceps. Good hemostasis noted. No signs of any large polyps, masses or obstructing lesions. He did have some internal and external hemorrhoids and a little bit of thrombus in one of the externals. Otherwise, no signs of any large masses or obstructing lesions. Findings discussed with the family out in the waiting area.
== END 2023-05-31 13:44 | disposition home or self-care (01) ==
LOC: SDC 10:07
PROVIDERS: ATTEND Surgery
DX: Z12.11 Encounter for screening for malignant neoplasm of colon (principal); Z09 Encounter for follow-up examination after completed treatment for conditions other than malignant neoplasm; Z86.010 Personal history of colon polyps; D12.5 Benign neoplasm of sigmoid colon; K64.4 Residual hemorrhoidal skin tags; K64.8 Other hemorrhoids; K57.30 Diverticulosis of large intestine without perforation or abscess without bleeding; E11.9 Type 2 diabetes mellitus without complications
CPT/HCPCS: 82947; J2250; J2704

== ENCOUNTER 2024-11-19 12:43 | Emergency (ER) | payer MEDICARE ==
[2024-11-19 13:01] VITALS: BP 172/92; PULSE 102; RESP 20; TEMP 97.9; O2SAT 96
--- NOTE | 2024-11-19 13:25 | ERPHSYRPT ---
- History of Present Illness Source: patient Exam Limitations: no limitations Patient Subjective Stated Complaint: Foreign body- fish hook Triage Nursing Assessment: Patient ambulated back to ED and sat in chair. Patient's skin pink, warm and dry. Patient was out fishing when he went to put bait on the hook and his pole slipped causing the hook to go into left hand 4th digit. Patient states the hook is a treble hook and he is not able to get it out. Patient denies pain or discomfort. Fish hook noted to be in patient's left hand, 4th digit. Physician History: Patient has a fishhook in his left fourth finger. It is a standard fishhook. He has no other problems. Timing/Duration: today Allergies/Adverse Reactions: soap Allergy (Intermediate, Verified 11/19/24 12:51) Hives Home Medications: Amlodipine Besylate 5 mg [Norvasc 5 mg] 5 mg PO BID 10/06/16 [History] Glyburide 5 mg [Micronase 5 MG] 5 mg PO DAILY 10/06/16 [History] Insulin Glargine [Lantus Insulin] 30 units SQ HS 09/03/22 [History] hydroCHLOROthiazide [Hydrochlorothiazide] 50 mg PO DAILY 09/03/22 [History] Lisinopril 5 mg [Zestril 5 MG] 5 mg PO DAILY 05/05/23 [History] Metformin HCl 500 mg [Glucophage 500 MG] 500 mg PO DAILY 05/05/23 [History] Omeprazole Magnesium [Prilosec] 20 mg PO DAILY 05/31/23 [History] Hx Tetanus, Diphtheria Vaccination/Date Given: Yes Hx Influenza Vaccination/Date Given: Yes Hx Pneumococcal Vaccination/Date Given: No Immunizations Up to Date: Yes Travel Risk - International Travel Have you traveled outside of the country in past 3 weeks: No - Emerging Infectious Disease Are you exhibiting symptoms associated with any current EIDs: No - Review of Systems Constitutional: No Symptoms All Other Systems: Reviewed and Negative - Past Medical History Pertinent Past Medical History: Yes Neurological History: No Pertinent History ENT History: No Pertinent History Cardiac History: Hypertension Respiratory History: Asthma, COPD Endocrine Medical History: Diabetes Type II Musculoskeletal History: Osteoarthritis GI Medical History: GERD, Hernia History: No Pertinent History Psycho-Social History: No Pertinent History Male Reproductive Disorders: No Pertinent History Other Medical History: was born with a hernia, three fractures on Left arm 1964, and fracture on R ankle 1965. had gonorrhea in the s. - Past Surgical History Past Surgical History: Yes Neuro Surgical History: No Pertinent History Cardiac: Cardiac Catheterization Respiratory: No Pertinent History Gastrointestinal: No Pertinent History Genitourinary: No Pertinent History Musculoskeletal: No Pertinent History Male Surgical History: No Pertinent History Other Surgical History: colonoscopy and EGD - Social History Smoking Status: Former smoker How long have you smoked: 25 years Exposure to second hand smoke: Yes Drug Use: none - Social Determinants of Health Will the patient participate in the screening: Yes Do you worry about a steady place to live?: No Do you have any problems with any of the following?: No known problems In the past 12 months,have you had to go without utilities?: No Transportation Issues: No Has anyone in your support network made you feel unsafe?: No Have you or anyone in your house had to go w/o enough food: No - Nursing Vital Signs Nursing Vital Signs: Initial Vital Signs Temperature 97.9 F 11/19/24 12:52 Pulse Rate 102 H 11/19/24 12:52 Respiratory Rate 20 11/19/24 12:52 Blood Pressure 172/92 11/19/24 12:52 O2 Sat by Pulse Oximetry 96 11/19/24 12:52 Pain Scale Pain Intensity 0 - Physical Exam SpO2: 96 Comments: Patient has a fishhook stuck in his left fourth finger. It is into the sub cutaneous tissue. There is no involvement of deep tissue such as tendons and nerves or vessels or bone. Procedure note the area was anesthetized. The fishhook was pushed through and then the merry was clipped and removed. I went to start the patient on Augmentin and give him a tetanus shot. 11/19/24 13:21 - Course Nursing assessment & vital signs reviewed: Yes Ordered Tests: Medication Summary Discontinued Medications Generic Name Dose Route Start Last Admin Trade Name Freq PRN Reason Stop Dose Admin Amoxicillin/Clavulanate Potassium 875 mg 11/19/24 13:22 Amox Tr/Potassium Clavulanate 875 Mg Tablet PO 11/19/24 13:23 STAT ONE - Progress Progress: improved - Departure Departure Disposition: Home Clinical Impression: Foreign body of finger of left hand, superficial Condition: Stable Critical Care Time: No Referrals: KATHRYN KHAN MD [Primary Care Provider] - Follow up/PCP as directed Instructions: Removal of Foreign Body in Skin Prescriptions: Amox Tr/Potass Clav. 875 mg [Augmentin 875-125 Tablet] 875 mg PO BID #10 tablet
[2024-11-19] MEDS ORDERED: Augmentin 875-125 Tablet ONE (13:30)
[2024-11-19] MEDS: Augmentin 875-125 Tablet PO ONE (13:31)
[2024-11-19] MEDS: XYLOCAINE 1% HCL 20 ML MDV IJ ONE (13:39)
[2024-11-19] MEDS ORDERED: XYLOCAINE 1% HCL 20 ML MDV ONE (13:39)
== END 2024-11-19 13:43 | disposition home or self-care (01) ==
LOC: ED 12:43
DX: S60.455A Superficial foreign body of left ring finger, initial encounter (principal); W26.8XXA Contact with other sharp object(s), not elsewhere classified, initial encounter; W45.8XXA Other foreign body or object entering through skin, initial encounter; I10 Essential (primary) hypertension; E11.9 Type 2 diabetes mellitus without complications; Z79.4 Long term (current) use of insulin; Z79.84 Long term (current) use of oral hypoglycemic drugs; Z79.899 Other long term (current) drug therapy
CPT/HCPCS: 99283; A9270-GY

== ENCOUNTER 2025-05-23 11:46 | Observation (INO) | payer MEDICARE ==
[2025-05-23 13:46] LABS: BASOPHIL % 0.5 % (0.2-1.2); Basophil (Absolute #) 0.08 x10^3/uL (0.01-0.08); Eosinophil (Absolute #) 0.11 x10^3/uL (0.04-0.54); Hematocrit 47.6 % (40.1-51.0); Hemoglobin 16.1 g/dL (13.7-17.5); IMMATURE GRAN # 0.10 x10^3u/L (0.001-0.031); IMMATURE GRAN % 0.6 % (0.001-0.429); Lymphocyte (Absolute #) 1.95 x10^3/uL (1.32-3.57); Mean Corpuscular Hemoglobin 31.1 pg (25.7-32.2); Mean Corpuscular Hgb Concent. 33.8 g/dL (32.3-36.5); Monocyte (Absolute #) 1.10 x10^3/uL (0.30-0.82); NUCLEATED RBC # 0.00 x10^3u/L (0.00-0.012); NUCLEATED RBC % 0.0 % (0.00-0.2); Platelet Count 396 x10^3/uL (163-337); Red Blood Count 5.18 x10^6/uL (4.63-6.08); White Blood Count 16.6 x10^3/uL (4.23-9.07)
--- NOTE | 2025-05-23 13:47 | ERPHSYRPT ---
- History of Present Illness Time Seen by Provider: 05/23/25 13:06 Source: patient Exam Limitations: no limitations Patient Subjective Stated Complaint: patient at [employer] passed out ems came took blood sugar did vitals and he was ok so he stayed played golf and then it happened again Triage Nursing Assessment: pt was driven in by his friend says he gets flushed has had two epeisodes today where he feels like he's going to pass out . denies any pain , amble to ambualte by self. pupils perrla 3, lung sounds clear, no edema noted , pulses equal bilateral radius. Physician History: 70-year-old male presents to the emergency room with syncopal episodes patient reports he was playing golf and this occurred twice patient reports he has had similar episode of this a few years back where he had it worked up and he did not get to the bottom as to what caused it patient denies any preceding chest pain but reports he became diaphoretic and nearly passed out according to the friend he had some tonic-clonic jerking movements of his upper extremities patient was evaluated by EMS and then had a blood sugar and blood pressure which was normal on them was cleared to continue playing patient had a second episode Witnessed: bystander Prior Episodes: multiple episodes today Timing/Duration: today Precipitating Factors: none Context: standing Charcter of event(s): became unresponsive, almost passed out Allergies/Adverse Reactions: soap Allergy (Intermediate, Verified 11/19/24 12:51) Hives Home Medications: Amlodipine Besylate 5 mg [Norvasc 5 mg] 5 mg PO BID 10/06/16 [History] Glyburide 5 mg [Micronase 5 MG] 5 mg PO DAILY 10/06/16 [History] Insulin Glargine [Lantus Insulin] 30 units SQ HS 09/03/22 [History] hydroCHLOROthiazide [Hydrochlorothiazide] 50 mg PO DAILY 09/03/22 [History] Lisinopril 5 mg [Zestril 5 MG] 5 mg PO DAILY 05/05/23 [History] Metformin HCl 500 mg [Glucophage 500 MG] 500 mg PO DAILY 05/05/23 [History] Omeprazole Magnesium [Prilosec] 20 mg PO DAILY 05/31/23 [History] Hx Tetanus, Diphtheria Vaccination/Date Given: Yes Hx Influenza Vaccination/Date Given: Yes Hx Pneumococcal Vaccination/Date Given: No Travel Risk - International Travel Have you traveled outside of the country in past 3 weeks: No - Emerging Infectious Disease Are you exhibiting symptoms associated with any current EIDs: No - Past Medical History Pertinent Past Medical History: Yes Neurological History: No Pertinent History ENT History: No Pertinent History Cardiac History: Hypertension Respiratory History: Asthma, COPD Endocrine Medical History: Diabetes Type II Musculoskeletal History: Osteoarthritis GI Medical History: GERD, Hernia History: No Pertinent History Psycho-Social History: No Pertinent History Male Reproductive Disorders: No Pertinent History Other Medical History: was born with a hernia, three fractures on Left arm 1964, and fracture on R ankle 1965. had gonorrhea in the . - Past Surgical History Past Surgical History: Yes Neuro Surgical History: No Pertinent History Cardiac: Cardiac Catheterization Respiratory: No Pertinent History Gastrointestinal: No Pertinent History Genitourinary: No Pertinent History Musculoskeletal: No Pertinent History Male Surgical History: No Pertinent History Other Surgical History: colonoscopy and EGD - Social History Smoking Status: Former smoker How long have you smoked: 25 years Exposure to second hand smoke: Yes Drug Use: none - Social Determinants of Health Will the patient participate in the screening: Yes Do you worry about a steady place to live?: No Do you have any problems with any of the following?: No known problems In the past 12 months,have you had to go without utilities?: No Transportation Issues: No Has anyone in your support network made you feel unsafe?: No Have you or anyone in your house had to go w/o enough food: No - Review of Systems Constitutional: No Fever, No Chills Eyes: No Symptoms Ears, Nose, & Throat: No Symptoms Respiratory: No Cough, No Dyspnea Cardiac: No Chest Pain, No Edema, No Syncope Abdominal/Gastrointestinal: No Abdominal Pain, No Nausea, No Vomiting, No Diarrhea Genitourinary Symptoms: No Dysuria Musculoskeletal: No Back Pain, No Neck Pain Skin: No Rash Neurological: Other (syncope), No Dizziness, No Focal Weakness, No Sensory Changes Psychological: No Symptoms Endocrine: No Symptoms All Other Systems: Reviewed and Negative Physical Exam - Nursing Vital Signs Nursing Vital Signs: Initial Vital Signs Pulse Rate 91 H 05/23/25 13:11 Respiratory Rate 21 05/23/25 13:11 Blood Pressure 124/80 05/23/25 13:11 O2 Sat by Pulse Oximetry 98 05/23/25 13:11 Pain Scale Pain Intensity 0 - [place] Coma Scale Best Eye Response ([place]): (4) open spontaneously Best Verbal Response ([place]): (5) oriented Best Motor Response ([place]): (6) obeys commands [place] Total: 15 - Physical Exam General Appearance: no apparent distress, alert Eye Exam: bilateral eye: PERRL, EOMI Ears, Nose, Throat Exam: normal ENT inspection, pharynx normal, moist mucous membranes Neck Exam: normal inspection, non-tender, supple, full range of motion Respiratory: normal breath sounds, lungs clear, No chest tenderness, No respiratory distress Cardiovascular: regular rate/rhythm, capillary refill <2 sec, No murmur, No pulse deficit Gastrointestinal: soft, No tenderness, No distention, No mass Back Exam: normal inspection, normal range of motion, No CVA tenderness, No vertebral tenderness Extremity Exam: normal inspection, normal range of motion, pelvis stable, No tenderness Mental Status: alert, oriented x 3, 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 Exam: normal speech, PERRL, No facial droop Coordination/Gait: normal finger to nose Motor/Sensory: no motor deficit, no sensory deficit, no pronator drift Skin Exam: normal color, warm, dry, No rash SpO2: 98 - Course Nursing assessment & vital signs reviewed: Yes EKG Interpreted by Me: RATE, Sinus Rhythm (94), Non-specific ST Changes, Other (no STEMI) Ordered Tests: Active Orders 24 hr Category Date Time Status Fence Builder STAT Care 05/23/25 13:23 Active EKG-ER Only STAT Care 05/23/25 13:22 Active IV Insertion STAT Care 05/23/25 13:22 Active POCT Glucose Check STAT Care 05/23/25 13:22 Active CHEST 1 VIEW (PORTABLE) Stat Exams 05/23/25 13:22 Completed CHEST WITH CONTRAST [CT] Stat Exams 05/23/25 14:16 Completed HEAD WITHOUT CONTRAST [CT] Stat Exams 05/23/25 13:22 Completed BLOOD CULTURE Stat Lab 05/23/25 15:20 Ordered CBC W DIFF Stat Lab 05/23/25 13:35 Completed CMP Stat Lab 05/23/25 13:35 Completed D-DIMER QUANTITATIVE Stat Lab 05/23/25 13:35 Completed POCT GLUCOSE Stat Lab 05/23/25 13:31 Completed UA W/RFX UR CULTURE Stat Lab 05/23/25 13:22 Completed Medication Summary Generic Name Dose Route Start Last Admin Trade Name Leonidas PRN Reason Stop Dose Admin Azithromycin 500 mg/ Sodium 250 mls @ 250 mls/hr 05/23/25 15:20 Chloride IV 05/23/25 16:19 STAT STA Ceftriaxone Sodium 1 gm in 100 mls @ 200 mls/hr 05/23/25 15:20 Rocephin 1 Gm / 100 Ml Nacl IV 05/23/25 15:49 STAT ONE Discontinued Medications Generic Name Dose Route Start Last Admin Trade Name Leonidas PRN Reason Stop Dose Admin Sodium Chloride 1,000 mls @ 999 mls/hr 05/23/25 13:22 05/23/25 14:39 Sodium Chloride 0.9% 1000 Ml IV 05/23/25 14:22 Infused .Q1H1M STA Infusion Sodium Chloride Confirm 05/23/25 13:30 Sodium Chloride 0.9% 1000 Ml Administered 05/23/25 13:31 Dose 1,000 mls @ ud .ROUTE .[facility] Lab/Rad Data: Laboratory Result Diagrams 05/23/25 13:35 05/23/25 13:35 Laboratory Results 05/23/25 05/23/25 05/23/25 Range/Units 13:35 13:35 13:35 WBC 16.6 H (4.23-9.07) x10^3/uL RBC 5.18 (4.63-6.08) x10^6/uL Hgb 16.1 (13.7-17.5) g/dL Hct 47.6 (40.1-51.0) % MCV 91.9 (79.0-92.2) fL MCH 31.1 (25.7-32.2) pg MCHC 33.8 (32.3-36.5) g/dL RDW 13.3 (11.6-14.4) % Plt Count 396 H (163-337) x10^3/uL MPV 9.7 (9.4-12.4) fL Gran % 79.9 H (34.0-67.9) % Immature Gran % (Auto) 0.6 H (0.001-0.429) % Nucleat RBC Rel Count 0.0 (0.00-0.2) % Eos # (Auto) 0.11 (0.04-0.54) x10^3/uL Immature Gran # (Auto) 0.10 H (0.001-0.031) x10^3u/L Absolute Lymphs (auto) 1.95 (1.32-3.57) x10^3/uL Absolute Monos (auto) 1.10 H (0.30-0.82) x10^3/uL Absolute Nucleated RBC 0.00 (0.00-0.012) x10^3u/L Lymphocytes % 11.7 L (21.8-53.1) % Monocytes % 6.6 (5.3-12.2) % Eosinophils % 0.7 L (0.8-7.0) % Basophils % 0.5 (0.2-1.2) % Absolute Granulocytes 13.30 H (1.78-5.38) x10^3/uL Basophils # 0.08 (0.01-0.08) x10^3/uL D-Dimer 11.51 H* (0.0-0.50) mg/L Sodium 134 L (135-145) mmol/L Potassium 4.5 (3.5-5.1) mmol/L Chloride 97 L (98-107) mmol/L Carbon Dioxide 26 (22-30) mmol/L Anion Gap 15.3 H (5-15) MEQ/L BUN 25 H (9-20) mg/dL Creatinine 1.26 H (0.66-1.25) mg/dL Estimated GFR 61.0 ML/MIN Glucose 275 H (74-106) mg/dL POC Glucometer (74 to 106) mg/dL Calcium 9.2 (8.4-10.2) mg/dL Total Bilirubin 0.60 (0.2-1.3) mg/dL AST 25 (17-59) U/L ALT 28 (0-50) U/L Alkaline Phosphatase 64 (38-126) U/L Serum Total Protein 7.1 (6.3-8.2) g/dL Albumin 4.3 (3.5-5.0) g/dL Urine Color (Yellow) Urine Appearance (Clear) Urine pH (4.6-8.0) Ur Specific [place] (1.005-1.030) Urine Protein (Negative) Urine Glucose (UA) (Negative) mg/dL Urine Ketones (Negative) Urine Blood (Negative) Urine Nitrite (Negative) Urine Bilirubin (Negative) Urine Urobilinogen (0.2) mg/dL Ur Leukocyte Esterase (Negative) U Hyaline Cast (Auto) (0-2) /LPF Urine Microscopic RBC (0-5) /HPF Urine Microscopic WBC (0-5) /HPF Ur Epithelial Cells (None Seen) /HPF Urine Bacteria (None Seen) /HPF Urine Culture Reflexed (NO) 05/23/25 05/23/25 Range/Units 13:31 13:22 WBC (4.23-9.07) x10^3/uL RBC (4.63-6.08) x10^6/uL Hgb (13.7-17.5) g/dL Hct (40.1-51.0) % MCV (79.0-92.2) fL MCH (25.7-32.2) pg MCHC (32.3-36.5) g/dL RDW (11.6-14.4) % Plt Count (163-337) x10^3/uL MPV (9.4-12.4) fL Gran % (34.0-67.9) % Immature Gran % (Auto) (0.001-0.429) % Nucleat RBC Rel Count (0.00-0.2) % Eos # (Auto) (0.04-0.54) x10^3/uL Immature Gran # (Auto) (0.001-0.031) x10^3u/L Absolute Lymphs (auto) (1.32-3.57) x10^3/uL Absolute Monos (auto) (0.30-0.82) x10^3/uL Absolute Nucleated RBC (0.00-0.012) x10^3u/L Lymphocytes % (21.8-53.1) % Monocytes % (5.3-12.2) % Eosinophils % (0.8-7.0) % Basophils % (0.2-1.2) % Absolute Granulocytes (1.78-5.38) x10^3/uL Basophils # (0.01-0.08) x10^3/uL D-Dimer (0.0-0.50) mg/L Sodium (135-145) mmol/L Potassium (3.5-5.1) mmol/L Chloride (98-107) mmol/L Carbon Dioxide (22-30) mmol/L Anion Gap (5-15) MEQ/L BUN (9-20) mg/dL Creatinine (0.66-1.25) mg/dL Estimated GFR ML/MIN Glucose (74-106) mg/dL POC Glucometer 263 H (74 to 106) mg/dL Calcium (8.4-10.2) mg/dL Total Bilirubin (0.2-1.3) mg/dL AST (17-59) U/L ALT (0-50) U/L Alkaline Phosphatase (38-126) U/L Serum Total Protein (6.3-8.2) g/dL Albumin (3.5-5.0) g/dL Urine Color Yellow (Yellow) Urine Appearance Clear (Clear) Urine pH 5.0 (4.6-8.0) Ur Specific [place] 1.020 (1.005-1.030) Urine Protein 100 A (Negative) Urine Glucose (UA) 250 A (Negative) mg/dL Urine Ketones Trace A (Negative) Urine Blood Negative (Negative) Urine Nitrite Negative (Negative) Urine Bilirubin Negative (Negative) Urine Urobilinogen 1.0 A (0.2) mg/dL Ur Leukocyte Esterase Negative (Negative) U Hyaline Cast (Auto) 20-50 (0-2) /LPF Urine Microscopic RBC 0-2 (0-5) /HPF Urine Microscopic WBC 0-2 (0-5) /HPF Ur Epithelial Cells Rare (None Seen) /HPF Urine Bacteria None Seen (None Seen) /HPF Urine Culture Reflexed NO (NO) - Progress Progress Note: 05/23/25 14:44 Comparison: October 05, 2016 Age-appropriate global atrophy and minimal periventricular degenerative microischemia bilaterally. No acute intracranial hemorrhage, abnormal extra-axial fluid collection, or mass effect. 4th ventricle is midline without hydrocephalus. Bony calvarium intact. Mild mucosal thickening both ethmoid and lesser degree left maxillary sinuses. Mastoid air cells are clear. Impression: Nonacute senile brain. Incidental mild paranasal sinus disease. 05/23/25 14:44 Portable chest again demonstrates normal heart and lungs with incidental tiny right apical calcified granuloma. Bony thorax intact again with mild degenerative changes. No new/acute findings. 05/23/25 15:18 1. Negative pulmonary embolus. 2. Minimal hazy right upper lobe interstitial alveolar opacities. Rule out pneumonia/pneumonitis. 3. Chronic findings including pulmonary emphysema, degenerative spondylosis, fatty liver, old granulomatous disease, and polycystic kidney disease. 05/23/25 15:[address] Artis who admits the patient med/tele for pneumonia - Departure Departure Disposition: In-patient Admission Clinical Impression: Pneumonia Qualifiers: Pneumonia type: due to unspecified organism Laterality: unspecified laterality Lung location: unspecified part of lung Qualified Code(s): J18.9 - Pneumonia, unspecified organism Syncope Qualifiers: Syncope type: unspecified Qualified Code(s): R55 - Syncope and collapse Condition: Stable Critical Care Time: No Referrals: KATHRYN KHAN MD [Primary Care Provider, INTERNAL MEDICINE] - Follow up/PCP as directed
[2025-05-23 13:53] LABS: Glucose, Urine 250 mg/dL (Negative); Protein,Urine Dip 100 (Negative); RBC 0-2 /HPF (0-5); WBC 0-2 /HPF (0-5)
[2025-05-23 14:00] LABS: Calcium 9.2 mg/dL (8.4-10.2); Carbon Dioxide 26.0 mmol/L (22-30); Creatinine 1 1.26 mg/dL (0.66-1.25); EST GLOMERULAR FILTRATION RATE 61.0 ML/MIN; Glucose 275.0 mg/dL (74-106); Potassium 4.5 mmol/L (3.5-5.1); SGOT/AST 25.0 U/L (17-59); SGPT/ALT 28.0 U/L (0-50); Total Protein 7.1 g/dL (6.3-8.2)
--- NOTE | 2025-05-23 14:16 | XRAY ---
Indication: Syncope. Comparison: September 03, 2022 Portable chest again demonstrates normal heart and lungs with incidental tiny right apical calcified granuloma. Bony thorax intact again with mild degenerative changes. No new/acute findings.
--- NOTE | 2025-05-23 14:36 | XRAY ---
Indication: Syncope. Multiple contiguous axial images obtained through the head without contrast. Comparison: October 05, 2016 Age-appropriate global atrophy and minimal periventricular degenerative microischemia bilaterally. No acute intracranial hemorrhage, abnormal extra-axial fluid collection, or mass effect. 4th ventricle is midline without hydrocephalus. Bony calvarium intact. Mild mucosal thickening both ethmoid and lesser degree left maxillary sinuses. Mastoid air cells are clear. Impression: Nonacute senile brain. Incidental mild paranasal sinus disease.
--- NOTE | 2025-05-23 15:16 | XRAY ---
Indication: Elevated D-dimer. Syncope. Multiple contiguous axial images obtained through the chest using 80 cc Isovue 370 contrast and PE protocol. Comparison: None Good opacification pulmonary arteries to include lobar and segmental branches. No pulmonary embolus. Heart not enlarged. Aorta is normal in course and caliber. Small right and tiny left hilar calcified nodes. No pathologic mediastinal/hilar lymphadenopathy. Lungs demonstrates minimal hazy right upper lobe interstitial alveolar opacities. Elsewhere mild pulmonary emphysema and tiny right apical calcified granuloma. Bony thorax intact with mild degenerative changes throughout spine. Limited upper abdomen demonstrates mild diffuse fatty liver and polycystic kidney disease. Impression: 1. Negative pulmonary embolus. 2. Minimal hazy right upper lobe interstitial alveolar opacities. Rule out pneumonia/pneumonitis. 3. Chronic findings including pulmonary emphysema, degenerative spondylosis, fatty liver, old granulomatous disease, and polycystic kidney disease.
[2025-05-23] MEDS ORDERED: ROCEPHIN 1 GM / 100 ML NaCl 1 GM/100 ML IVPB IV ONE (15:33)
[2025-05-23] MEDS: ROCEPHIN 1 GM / 100 ML NaCl 1 GM/100 ML IVPB IV ONE (15:35)
--- NOTE | 2025-05-23 16:50 | PCM.HP ---
History of Present Illness - Chief Complaint Chief Complaint: syncope Date: 05/23/25 History of Present Illness: is a 70-year-old male with a past medical history significant for COPD, hypertension, asthma, type II diabetes mellitus, osteoarthritis, GERD, and hernia presented to the emergency department after experiencing two syncopal episodes while playing golf. He reports a similar episode several years ago that was worked up without a definitive cause. He denies preceding chest pain but notes that he became diaphoretic and nearly lost consciousness. According to a friend, the patient exhibited brief tonic-clonic jerking movements of the upper extremities during the event. He was initially evaluated by EMS, where his blood pressure and blood glucose were within normal limits, and was cleared to continue activity, but he experienced a second syncopal episode shortly thereafter. Pt reports cough with green sputum x2 weeks. He reports that he thought he had a cold. He is no longer coughing anything up. Laboratory studies revealed a white blood cell count of 16.6, platelets of 396, D-dimer of 11.51, anion gap of 15.3, creatinine of 1.26 (consistent with acute kidney injury, as his baseline renal function is normal), and glucose of 263 with hemoglobin A1c pending. Imaging included a CTA chest with PE protocol, which was negative for pulmonary embolism but demonstrated minimal hazy right upper lobe interstitial and alveolar opacities suggestive of possible pneumonia or pneumonitis, along with chronic findings of pulmonary emphysema, degenerative spondylosis, fatty liver, old granulomatous disease, and polycystic kidney disease. CT head revealed nonacute senile brain changes and incidental mild paranasal sinus disease. In the emergency department, the patient was started on intravenous fluids for dehydration and antibiotics for treatment of pneumonia. - Review of Systems Constitutional: No Fever, No Chills Eyes: No Symptoms, Eye Redness, Itchy Ears, Nose, & Throat: No Symptoms Respiratory: No Cough, No Short Of Breath Cardiac: Syncope, No Chest Pain, No Edema Abdominal/Gastrointestinal: No Abdominal Pain, No Nausea, No Vomiting, No Diarrhea Genitourinary Symptoms: No Dysuria Musculoskeletal: No Back Pain, No Neck Pain Skin: No Rash Neurological: No Dizziness, No Focal Weakness, No Sensory Changes Psychological: No Symptoms Endocrine: No Symptoms Hematologic/Lymphatic: No Symptoms Immunological/Allergic: No Symptoms Medications & Allergies Home Medications: Home Medication List Amlodipine Besylate 5 mg [Norvasc 5 mg] 5 mg PO BID 10/06/16 [History Confirmed 05/23/25] Glyburide 5 mg [Micronase 5 MG] 5 mg PO DAILY 10/06/16 [History Confirmed 05/23/25] Insulin Glargine [Lantus Insulin] 30 units SQ HS 09/03/22 [History Confirmed 05/23/25] hydroCHLOROthiazide [Hydrochlorothiazide] 50 mg PO DAILY 09/03/22 [History Confirmed 05/23/25] Lisinopril 5 mg [Zestril 5 MG] 5 mg PO DAILY 05/05/23 [History Confirmed 05/23/25] Metformin HCl 500 mg [Glucophage 500 MG] 500 mg PO DAILY 05/05/23 [History Confirmed 05/23/25] Aspirin EC 81 mg [Ecotrin 81 mg] 81 mg PO DAILY #0 05/31/23 [Rx Confirmed 05/23/25] Omeprazole Magnesium [Prilosec] 20 mg PO DAILY 05/31/23 [History Confirmed 05/23/25] Allergies/Adverse Reactions: Allergies Allergy/AdvReac Type Severity Reaction Status Date / Time soap Allergy Intermediate Hives Verified 11/19/24 12:51 - Past Medical History Past Medical History: Yes Neurological History: No Pertinent History ENT History: No Pertinent History Cardiac History: Hypertension Respiratory History: Asthma, COPD Endocrine Medical History: Diabetes Type II Musculoskelatal History: Osteoarthritis GI Medical History: GERD, Hernia History: No Pertinent History Pyscho-Social History: No Pertinent History Male Reproductive Disorders: No Pertinent History Comment: was born with a hernia, three fractures on Left arm 1964, and fracture on R ankle 1965. had gonorrhea in the s. - Past Surgical History Past Surgical History: Yes Neuro Surgical History: No Pertinent History Cardiac History: Cardiac Catheterization Respiratory Surgery: No Pertinent History GI Surgical History: No Pertinent History Genitourinary Surgical Hx: No Pertinent History Musculskeletal Surgical Hx: No Pertinent History Male Surgical History: No Pertinent History Other Surgical History: colonoscopy and EGD Significant Family History: no pertinent family hx - Social History Smoking Status: Former smoker How long have you smoked: 25 years Exposure to second hand smoke: Yes Alcohol: None Drug Use: none - Social Determinants of Health Will the patient participate in the screening: Yes Do you worry about a steady place to live?: No Do you have any problems with any of the following?: No known problems In the past 12 months,have you had to go without utilities?: No Have you or anyone in your house had to go without enough: No Transportation Issues: No Has anyone in your support network made you feel unsafe?: No - Physical Exam Vital Signs: Vital Signs - 24 hr Pulse Resp BP BP Pulse Ox 05/23/25 15:31 98 05/23/25 15:30 84 17 116/85 98 05/23/25 15:00 86 23 117/73 99 05/23/25 14:53 79 22 127/80 99 05/23/25 14:30 84 21 103/75 98 05/23/25 14:10 76 15 119/76 100 05/23/25 13:30 91 H 24 103/75 98 05/23/25 13:18 92 H 22 124/80 98 05/23/25 13:11 91 H 21 124/80 98 General Appearance: no apparent distress, alert Neurologic Exam: alert, oriented x 3, cooperative, normal mood/affect, nml cerebellar function, nml station & gait, sensation nml, No motor deficits Eye Exam: PERRL/EOMI, eyes nml inspection Ears, Nose, Throat Exam: normal ENT inspection, TMs normal, pharynx normal, moist mucous membranes Neck Exam: normal inspection, non-tender, supple, full range of motion Respiratory Exam: diminished breath sounds, No respiratory distress Cardiovascular Exam: regular rate/rhythm, normal heart sounds, normal peripheral pulses Gastrointestinal/Abdomen Exam: soft, normal bowel sounds, No tenderness, No mass Back Exam: normal inspection, normal range of motion, No CVA tenderness, No vertebral tenderness Extremity Exam: normal inspection, normal range of motion, pelvis stable Skin Exam: normal color, warm, dry, No rash Lymphatic Exam: No adenopathy Results - Labs Lab/Micro Results: Lab Results-Last 24 Hours 05/23/25 05/23/25 05/23/25 Range/Units 13:22 13:31 13:35 WBC 16.6 H (4.23-9.07) x10^3/uL RBC 5.18 (4.63-6.08) x10^6/uL Hgb 16.1 (13.7-17.5) g/dL Hct 47.6 (40.1-51.0) % MCV 91.9 (79.0-92.2) fL MCH 31.1 (25.7-32.2) pg MCHC 33.8 (32.3-36.5) g/dL RDW 13.3 (11.6-14.4) % Plt Count 396 H (163-337) x10^3/uL MPV 9.7 (9.4-12.4) fL Gran % 79.9 H (34.0-67.9) % Immature Gran % (Auto) 0.6 H (0.001-0.429) % Nucleat RBC Rel Count 0.0 (0.00-0.2) % Eos # (Auto) 0.11 (0.04-0.54) x10^3/uL Immature Gran # (Auto) 0.10 H (0.001-0.031) x10^3u/L Absolute Lymphs (auto) 1.95 (1.32-3.57) x10^3/uL Absolute Monos (auto) 1.10 H (0.30-0.82) x10^3/uL Absolute Nucleated RBC 0.00 (0.00-0.012) x10^3u/L Lymphocytes % 11.7 L (21.8-53.1) % Monocytes % 6.6 (5.3-12.2) % Eosinophils % 0.7 L (0.8-7.0) % Basophils % 0.5 (0.2-1.2) % Absolute Granulocytes 13.30 H (1.78-5.38) x10^3/uL Basophils # 0.08 (0.01-0.08) x10^3/uL D-Dimer (0.0-0.50) mg/L Sodium (135-145) mmol/L Potassium (3.5-5.1) mmol/L Chloride (98-107) mmol/L Carbon Dioxide (22-30) mmol/L Anion Gap (5-15) MEQ/L BUN (9-20) mg/dL Creatinine (0.66-1.25) mg/dL Estimated GFR ML/MIN Glucose (74-106) mg/dL POC Glucometer 263 H (74 to 106) mg/dL Calcium (8.4-10.2) mg/dL Total Bilirubin (0.2-1.3) mg/dL AST (17-59) U/L ALT (0-50) U/L Alkaline Phosphatase (38-126) U/L Serum Total Protein (6.3-8.2) g/dL Albumin (3.5-5.0) g/dL Urine Color Yellow (Yellow) Urine Appearance Clear (Clear) Urine pH 5.0 (4.6-8.0) Ur Specific [place] 1.020 (1.005-1.030) Urine Protein 100 A (Negative) Urine Glucose (UA) 250 A (Negative) mg/dL Urine Ketones Trace A (Negative) Urine Blood Negative (Negative) Urine Nitrite Negative (Negative) Urine Bilirubin Negative (Negative) Urine Urobilinogen 1.0 A (0.2) mg/dL Ur Leukocyte Esterase Negative (Negative) U Hyaline Cast (Auto) 20-50 (0-2) /LPF Urine Microscopic RBC 0-2 (0-5) /HPF Urine Microscopic WBC 0-2 (0-5) /HPF Ur Epithelial Cells Rare (None Seen) /HPF Urine Bacteria None Seen (None Seen) /HPF Urine Culture Reflexed NO (NO) 05/23/25 05/23/25 Range/Units 13:35 13:35 WBC (4.23-9.07) x10^3/uL RBC (4.63-6.08) x10^6/uL Hgb (13.7-17.5) g/dL Hct (40.1-51.0) % MCV (79.0-92.2) fL MCH (25.7-32.2) pg MCHC (32.3-36.5) g/dL RDW (11.6-14.4) % Plt Count (163-337) x10^3/uL MPV (9.4-12.4) fL Gran % (34.0-67.9) % Immature Gran % (Auto) (0.001-0.429) % Nucleat RBC Rel Count (0.00-0.2) % Eos # (Auto) (0.04-0.54) x10^3/uL Immature Gran # (Auto) (0.001-0.031) x10^3u/L Absolute Lymphs (auto) (1.32-3.57) x10^3/uL Absolute Monos (auto) (0.30-0.82) x10^3/uL Absolute Nucleated RBC (0.00-0.012) x10^3u/L Lymphocytes % (21.8-53.1) % Monocytes % (5.3-12.2) % Eosinophils % (0.8-7.0) % Basophils % (0.2-1.2) % Absolute Granulocytes (1.78-5.38) x10^3/uL Basophils # (0.01-0.08) x10^3/uL D-Dimer 11.51 H* (0.0-0.50) mg/L Sodium 134 L (135-145) mmol/L Potassium 4.5 (3.5-5.1) mmol/L Chloride 97 L (98-107) mmol/L Carbon Dioxide 26 (22-30) mmol/L Anion Gap 15.3 H (5-15) MEQ/L BUN 25 H (9-20) mg/dL Creatinine 1.26 H (0.66-1.25) mg/dL Estimated GFR 61.0 ML/MIN Glucose 275 H (74-106) mg/dL POC Glucometer (74 to 106) mg/dL Calcium 9.2 (8.4-10.2) mg/dL Total Bilirubin 0.60 (0.2-1.3) mg/dL AST 25 (17-59) U/L ALT 28 (0-50) U/L Alkaline Phosphatase 64 (38-126) U/L Serum Total Protein 7.1 (6.3-8.2) g/dL Albumin 4.3 (3.5-5.0) g/dL Urine Color (Yellow) Urine Appearance (Clear) Urine pH (4.6-8.0) Ur Specific [place] (1.005-1.030) Urine Protein (Negative) Urine Glucose (UA) (Negative) mg/dL Urine Ketones (Negative) Urine Blood (Negative) Urine Nitrite (Negative) Urine Bilirubin (Negative) Urine Urobilinogen (0.2) mg/dL Ur Leukocyte Esterase (Negative) U Hyaline Cast (Auto) (0-2) /LPF Urine Microscopic RBC (0-5) /HPF Urine Microscopic WBC (0-5) /HPF Ur Epithelial Cells (None Seen) /HPF Urine Bacteria (None Seen) /HPF Urine Culture Reflexed (NO) Accuchecks Date 05/23/25 Time 13:32 - Radiology Impressions Radiology Exams & Impressions: Radiology Procedures Category Date Time Status CHEST 1 VIEW (PORTABLE) Stat Exams 05/23/25 13:22 Completed CHEST WITH CONTRAST [CT] Stat Exams 05/23/25 14:16 Completed HEAD WITHOUT CONTRAST [CT] Stat Exams 05/23/25 13:22 Completed Assessment/Plan (1) Pneumonia Current Visit: Yes Status: Acute Qualifiers: Pneumonia type: due to unspecified organism Laterality: unspecified laterality Lung location: unspecified part of lung Qualified Code(s): J18.9 - Pneumonia, unspecified organism Assessment & Plan: - Chest CT: 1. Negative pulmonary embolus. 2. Minimal hazy right upper lobe interstitial alveolar opacities. Rule out pneumonia/pneumonitis. 3. Chronic findings including pulmonary emphysema, degenerative spondylosis, fatty liver, old granulomatous disease, and polycystic kidney disease. - CXR: Portable chest again demonstrates normal heart and lungs with incidental tiny right apical calcified granuloma. Bony thorax intact again with mild degenerative changes. No new/acute findings. - CBC, CMP reviewed - WBC 16.6 - BC x2 pending - IV antibiotics - RA 98% - Flu/COVID/RSV- pending Code(s): J18.9 - PNEUMONIA, UNSPECIFIED ORGANISM (2) Syncope Current Visit: Yes Status: Acute Qualifiers: Syncope type: unspecified Qualified Code(s): R55 - Syncope and collapse Assessment & Plan: - Echo - IVF - Orthostats in AM - EKG, TELE - CBC, CMP reviewed - TSH - trops x3 - CT head: Impression: Nonacute senile brain. Incidental mild paranasal sinus disease. Code(s): R55 - SYNCOPE AND COLLAPSE (3) Dehydration Current Visit: No Status: Acute Assessment & Plan: - Creat 1.26- BL normal - Anion Gap 15.3 - IVF started in ER - continue Code(s): E86.0 - DEHYDRATION (4) D-dimer, elevated Current Visit: Yes Status: Acute Assessment & Plan: - D-D otilia 11.51 - CTA negative for PE Code(s): R79.89 - OTHER SPECIFIED ABNORMAL FINDINGS OF BLOOD CHEMISTRY (5) IZABELA (acute kidney injury) Current Visit: Yes Status: Acute Assessment & Plan: - Creat 1.26- BL normal - IVF - Hold lisinopril Code(s): N17.9 - ACUTE KIDNEY FAILURE, UNSPECIFIED (6) Thrombocytosis Current Visit: Yes Status: Acute Assessment & Plan: - PLT 396 - 2:2 pneumonia- trend (7) Allergic conjunctivitis of both eyes Current Visit: Yes Status: Acute Assessment & Plan: - Artifical tears - Zyrtec at HS - Prednisolone gtts Code(s): H10.13 - ACUTE ATOPIC CONJUNCTIVITIS, BILATERAL (8) Type II diabetes mellitus Current Visit: Yes Status: Chronic Qualifiers: Diabetes mellitus long term care social worker insulin use: with correction use Assessment & Plan: - Accuchecks AC/HS - A1C pending - Hold oral diabetic meds - High dose S/S insulin - Lantus at HS (9) Polycystic kidney disease Current Visit: Yes Status: Chronic Assessment & Plan: - Pt aware of this dx - Seen on CTA VTE: Heparin PPI: Omeprazole Next of KIN: Friend- Nataliya Santoro D/Sidney plan: 1-2 days Code status: Full PLan of care time > 45 minutes Code(s): Q61.3 - POLYCYSTIC KIDNEY, UNSPECIFIED Telemedicine Encounter - Telemedicine Encounter Telemedicine Encounter: "The entirety of this encounter was performed via Telemedicine" This visit was performed using real-time audio and video connection between my location and thepatients locationwith the assistance of a surrogateat the patients location. Written or verbal consent was obtained from the patient/guardian to perform this visit [facility]. Any patient questions regarding the telemedicine interaction were answered.
[2025-05-23] MEDS ORDERED: DUONEB 0.5-3 MG/3 ml Neb IH ONE (18:21)
[2025-05-23 19:02] LABS: INFLUENZA A NEGATIVE (NEGATIVE); INFLUENZA B NEGATIVE (NEGATIVE); RESPIRATORY SYNCTIAL VIRUS NEGATIVE (NEGATIVE); SARS-CoV-2 Xpert Express NEGATIVE (NEGATIVE)
[2025-05-23] MEDS: DUONEB 0.5-3 MG/3 ml Neb IH SCH (19:05)
[2025-05-23] MEDS: ZITHROMAX IV*** 500 MG in Sodium Chloride 0.9% 250 ML 250 ML IV STA (19:44)
[2025-05-23] MEDS ORDERED: Artificial Tears 15 ML OP ONE (21:21)
[2025-05-23] MEDS ORDERED: Lantus Insulin ONE (21:22)
[2025-05-23] MEDS ORDERED: NORVASC 5 MG ONE (21:23)
[2025-05-23] MEDS ORDERED: CLARITIN 10 MG ONE (21:23)
[2025-05-23] MEDS ORDERED: HEPARIN 5000 UNITS/0.5 ML (HIGH RISK MED) ONE (21:23)
[2025-05-23] MEDS: Artificial Tears 15 ML OP SCH (21:27)
[2025-05-23] MEDS: HEPARIN 5000 UNITS/0.5 ML (HIGH RISK MED) SQ SCH (21:27)
[2025-05-23] MEDS: CLARITIN 10 MG PO SCH (21:28)
[2025-05-23] MEDS: Lantus Insulin SQ SCH (21:28)
[2025-05-23] MEDS: PRED-FORTE 1% OPHTHALMIC OP SCH (21:31)
[2025-05-23] MEDS: NORVASC 5 MG PO SCH (23:09)
[2025-05-24 05:19] LABS: Hematocrit 41.2 % (40.1-51.0); Hemoglobin 13.7 g/dL (13.7-17.5); Mean Corpuscular Hemoglobin 31.4 pg (25.7-32.2); Mean Corpuscular Hgb Concent. 33.3 g/dL (32.3-36.5); Platelet Count 328 x10^3/uL (163-337); Red Blood Count 4.36 x10^6/uL (4.63-6.08); White Blood Count 10.4 x10^3/uL (4.23-9.07)
[2025-05-24] MEDS ORDERED: DUONEB 0.5-3 MG/3 ml Neb IH ONE (06:46)
[2025-05-24 07:00] LABS: Calcium 8.4 mg/dL (8.4-10.2); Carbon Dioxide 26.0 mmol/L (22-30); Creatinine 1 1.29 mg/dL (0.66-1.25); EST GLOMERULAR FILTRATION RATE 59.3 ML/MIN; Glucose 105.0 mg/dL (74-106); Potassium 4.1 mmol/L (3.5-5.1); SGOT/AST 23.0 U/L (17-59); SGPT/ALT 19.0 U/L (0-50); Total Protein 5.9 g/dL (6.3-8.2)
[2025-05-24] MEDS: ROCEPHIN 1 GM / 100 ML NaCl 1 GM/100 ML IVPB IV SCH (10:11)
[2025-05-24] MEDS: ECOTRIN 81 MG PO SCH (11:02)
[2025-05-24] MEDS: Protonix 40MG Tablet PO SCH (11:02)
[2025-05-24] MEDS: FLAGYL 500 MG IVPB 500 MG/100 ML BAG IV SCH (11:04)
[2025-05-24] MEDS: Floxin Otic 5 ML OT SCH (11:05)
[2025-05-24] MEDS: Artificial Tears 15 ML OP SCH (11:08)
[2025-05-24] MEDS: PRED-FORTE 1% OPHTHALMIC OP SCH (11:08)
[2025-05-24] MEDS: ZITHROMAX IV*** 500 MG in Sodium Chloride 0.9% 250 ML 250 ML IV SCH (11:16)
--- NOTE | 2025-05-24 12:06 | XRAY ---
Indication: Syncope. Two-dimensional sonogram and color Doppler imaging carotid arteries of the neck performed. Comparison: None Examination right carotid circulation demonstrates minimal eccentric calcified plaquing carotid bulb. Otherwise widely patent common carotid, internal carotid, and external carotid arteries. PSV CCA is 79 cm/sec. PSV ICA is 56 cm/sec. ICA/CCA ratio is 0.7. Normal antegrade vertebral artery flow. Examination left carotid circulation demonstrates widely patent common carotid, carotid bulb, internal carotid, and external carotid arteries. PSV CCA is 73 cm/sec. PSV ICA is 60 cm/sec. ICA/CCA ratio is 0.8. Normal antegrade vertebral artery flow. Impression: Minimal arteriosclerotic disease right carotid bulb. Otherwise widely patent left and right carotid arteries of the neck. Velocity measurements and ratios also negative for hemodynamically significant flow-limiting stenosis.
--- NOTE | 2025-05-24 13:24 | PCM.NOTE ---
Date and Time: 05/24/25 1300 Subjective Assessment: is a 70-year-old male with a past medical history significant for COPD, hypertension, asthma, type II diabetes mellitus, osteoarthritis, GERD, and hernia presented to the emergency department on 05/23/25 after experiencing two syncopal episodes while playing golf. He reports a similar episode several years ago that was worked up without a definitive cause. He denies preceding chest pain but notes that he became diaphoretic and nearly lost consciousness. According to a friend, the patient exhibited brief tonic-clonic jerking movements of the upper extremities during the event. He was initially evaluated by EMS, where his blood pressure and blood glucose were within normal limits, and was cleared to continue activity, but he experienced a second syncopal episode shortly thereafter. Pt reports cough with green sputum x2 weeks. He reports that he thought he had a cold. He is no longer coughing anything up. Laboratory studies revealed a white blood cell count of 16.6, platelets of 396, D-dimer of 11.51, anion gap of 15.3, creatinine of 1.26 (consistent with acute kidney injury, as his baseline renal function is normal), and glucose of 263 with hemoglobin A1c pending. Imaging included a CTA chest with PE protocol, which was negative for pulmonary embolism but demonstrated minimal hazy right upper lobe interstitial and alveolar opacities suggestive of possible pneumonia or pneumonitis, along with chronic findings of pulmonary emphysema, degenerative spondylosis, fatty liver, old granulomatous disease, and polycystic kidney disease. CT head revealed nonacute senile brain changes and incidental mild paranasal sinus disease. In the emergency department, the patient was started on intravenous fluids for dehydration and antibiotics for treatment of pneumonia. 05/24/25 The patient is resting in bed today and requesting discharge; however, exam is notable for swelling, warmth, and erythema of the left side of the face, jaw, and upper neck. Otoscopic exam revealed findings consistent with otitis externa, and ear drops were started. IV antibiotics and Benadryl were also initiated for edema and erythema. A CT face with IV contrast has been ordered for further evaluation. The patient denies shortness of breath, difficulty swallowing, tooth pain, or dental infection. No oral edema is present. Carotid duplex was negative for acute pathology, and echocardiogram results are pending. Blood cultures 2 are pending, and repeat D-dimer is elevated at 3.90 but improved. His IZABELA has worsened today, and IV fluids are being continued. WBC has improved to 10.4. Orthostatic vitals were negative, and no further syncopal events have occurred. Neurologic exam remains non-concerning. He continues on antibiotics for pneumonia, remains afebrile, is on room air with 100% oxygen saturation, and tested negative for flu, COVID, and RSV. He currently denies chest pain, shortness of breath, abdominal pain, nausea, vomiting, or diarrhea. - Review of Systems Constitutional: No Fever, No Chills Eyes: No Symptoms Ears, Nose, & Throat: No Symptoms, Other (left side of face swollen/ jaw/neck, warm & red) Respiratory: No Cough, No Short Of Breath Cardiac: No Chest Pain, No Edema, No Syncope Abdominal/Gastrointestinal: No Abdominal Pain, No Nausea, No Vomiting, No Diarrhea Genitourinary Symptoms: No Dysuria Musculoskeletal: No Back Pain, No Neck Pain Skin: No Rash Neurological: No Dizziness, No Focal Weakness, No Sensory Changes Psychological: No Symptoms Endocrine: No Symptoms Hematologic/Lymphatic: No Symptoms Immunological/Allergic: No Symptoms Objective Exam General Appearance: no apparent distress, alert, obese Neurologic Exam: alert, oriented x 3, cooperative, waste oil pumper II-XII nml as tested, normal mood/affect, nml cerebellar function, sensation nml, No motor deficits Skin Exam: normal color, warm, dry Eye Exam: PERRL, EOMI, other (+ redness BL eyes) Ears, Nose, Throat Exam: pharynx normal, moist mucous membranes, other (erythema ear canal left ear) Neck Exam: supple, full range of motion, other (Left side of face and neck up to ear and cheek + edema and erythema, Hard) Respiratory Exam: normal breath sounds, lungs clear, No respiratory distress Cardiovascular Exam: regular rate/rhythm, normal heart sounds Gastrointestinal/Abdomen Exam: soft, No tenderness, No mass Extremity Exam: normal inspection, normal range of motion Back Exam: normal inspection, normal range of motion, No CVA tenderness, No vertebral tenderness Male Genitalia Exam: deferred Rectal Exam: deferred Objective Data Vital Signs: Vital Signs - 24 hr Temp Pulse Resp BP BP Pulse Ox 05/24/25 12:38 98.3 F 72 22 137/70 100 05/24/25 11:11 71 18 95 05/24/25 08:55 98.3 F 80 22 124/74 95 05/24/25 07:11 77 18 95 05/24/25 05:11 92 H 116/64 05/24/25 05:00 97.3 F 81 18 124/60 97 05/24/25 00:18 97.7 F 78 17 105/66 96 05/23/25 21:22 91 H 120/72 05/23/25 19:52 97.0 F 92 H 17 85/51 96 05/23/25 19:05 106 H 22 94 L 05/23/25 18:49 97.2 F 83 18 122/82 95 05/23/25 18:37 96 05/23/25 16:47 97.2 F 83 18 122/82 95 05/23/25 15:31 98 05/23/25 15:30 84 17 116/85 98 05/23/25 15:00 86 23 117/73 99 05/23/25 14:53 79 22 127/80 99 05/23/25 14:30 84 21 103/75 98 05/23/25 14:10 76 15 119/76 100 05/23/25 13:30 91 H 24 103/75 98 05/23/25 13:18 92 H 22 124/80 98 05/23/25 13:11 91 H 21 124/80 98 Pain Assessment - Last Documented Pain Intensity 0 Intake and Output: Intake & Output 05/22/25 05/23/25 05/24/25 05/25/25 11:59 11:59 11:59 11:59 Intake Total 2543 Balance 2543 Weight 105.9 kg Lab Results: Lab Results-Last 24 Hours 05/23/25 05/23/25 05/23/25 Range/Units 13:22 13:31 13:35 WBC 16.6 H (4.23-9.07) x10^3/uL RBC 5.18 (4.63-6.08) x10^6/uL Hgb 16.1 (13.7-17.5) g/dL Hct 47.6 (40.1-51.0) % MCV 91.9 (79.0-92.2) fL MCH 31.1 (25.7-32.2) pg MCHC 33.8 (32.3-36.5) g/dL RDW 13.3 (11.6-14.4) % Plt Count 396 H (163-337) x10^3/uL MPV 9.7 (9.4-12.4) fL Gran % 79.9 H (34.0-67.9) % Immature Gran % (Auto) 0.6 H (0.001-0.429) % Nucleat RBC Rel Count 0.0 (0.00-0.2) % Eos # (Auto) 0.11 (0.04-0.54) x10^3/uL Immature Gran # (Auto) 0.10 H (0.001-0.031) x10^3u/L Absolute Lymphs (auto) 1.95 (1.32-3.57) x10^3/uL Absolute Monos (auto) 1.10 H (0.30-0.82) x10^3/uL Absolute Nucleated RBC 0.00 (0.00-0.012) x10^3u/L Lymphocytes % 11.7 L (21.8-53.1) % Monocytes % 6.6 (5.3-12.2) % Eosinophils % 0.7 L (0.8-7.0) % Basophils % 0.5 (0.2-1.2) % Absolute Granulocytes 13.30 H (1.78-5.38) x10^3/uL Basophils # 0.08 (0.01-0.08) x10^3/uL D-Dimer (0.0-0.50) mg/L Sodium (135-145) mmol/L Potassium (3.5-5.1) mmol/L Chloride (98-107) mmol/L Carbon Dioxide (22-30) mmol/L Anion Gap (5-15) MEQ/L BUN (9-20) mg/dL Creatinine (0.66-1.25) mg/dL Estimated GFR ML/MIN Glucose (74-106) mg/dL POC Glucometer 263 H (74 to 106) mg/dL Hemoglobin A1c (4.5-6.0) % Calcium (8.4-10.2) mg/dL Total Bilirubin (0.2-1.3) mg/dL AST (17-59) U/L ALT (0-50) U/L Alkaline Phosphatase (38-126) U/L Troponin I (0.000-0.033) ng/mL Serum Total Protein (6.3-8.2) g/dL Albumin (3.5-5.0) g/dL TSH 3rd Generation (0.470-4.680) mIU/L Urine Color Yellow (Yellow) Urine Appearance Clear (Clear) Urine pH 5.0 (4.6-8.0) Ur Specific [place] 1.020 (1.005-1.030) Urine Protein 100 A (Negative) Urine Glucose (UA) 250 A (Negative) mg/dL Urine Ketones Trace A (Negative) Urine Blood Negative (Negative) Urine Nitrite Negative (Negative) Urine Bilirubin Negative (Negative) Urine Urobilinogen 1.0 A (0.2) mg/dL Ur Leukocyte Esterase Negative (Negative) U Hyaline Cast (Auto) 20-50 (0-2) /LPF Urine Microscopic RBC 0-2 (0-5) /HPF Urine Microscopic WBC 0-2 (0-5) /HPF Ur Epithelial Cells Rare (None Seen) /HPF Urine Bacteria None Seen (None Seen) /HPF Urine Culture Reflexed NO (NO) Influenza Type A Ag (NEGATIVE) Influenza Type B Ag (NEGATIVE) RSV (PCR) (NEGATIVE) SARS-CoV-2 (PCR) (NEGATIVE) 05/23/25 05/23/25 05/23/25 Range/Units 13:35 13:35 13:35 WBC (4.23-9.07) x10^3/uL RBC (4.63-6.08) x10^6/uL Hgb (13.7-17.5) g/dL Hct (40.1-51.0) % MCV (79.0-92.2) fL MCH (25.7-32.2) pg MCHC (32.3-36.5) g/dL RDW (11.6-14.4) % Plt Count (163-337) x10^3/uL MPV (9.4-12.4) fL Gran % (34.0-67.9) % Immature Gran % (Auto) (0.001-0.429) % Nucleat RBC Rel Count (0.00-0.2) % Eos # (Auto) (0.04-0.54) x10^3/uL Immature Gran # (Auto) (0.001-0.031) x10^3u/L Absolute Lymphs (auto) (1.32-3.57) x10^3/uL Absolute Monos (auto) (0.30-0.82) x10^3/uL Absolute Nucleated RBC (0.00-0.012) x10^3u/L Lymphocytes % (21.8-53.1) % Monocytes % (5.3-12.2) % Eosinophils % (0.8-7.0) % Basophils % (0.2-1.2) % Absolute Granulocytes (1.78-5.38) x10^3/uL Basophils # (0.01-0.08) x10^3/uL D-Dimer 11.51 H* (0.0-0.50) mg/L Sodium 134 L (135-145) mmol/L Potassium 4.5 (3.5-5.1) mmol/L Chloride 97 L (98-107) mmol/L Carbon Dioxide 26 (22-30) mmol/L Anion Gap 15.3 H (5-15) MEQ/L BUN 25 H (9-20) mg/dL Creatinine 1.26 H (0.66-1.25) mg/dL Estimated GFR 61.0 ML/MIN Glucose 275 H (74-106) mg/dL POC Glucometer (74 to 106) mg/dL Hemoglobin A1c 7.00 H (4.5-6.0) % Calcium 9.2 (8.4-10.2) mg/dL Total Bilirubin 0.60 (0.2-1.3) mg/dL AST 25 (17-59) U/L ALT 28 (0-50) U/L Alkaline Phosphatase 64 (38-126) U/L Troponin I (0.000-0.033) ng/mL Serum Total Protein 7.1 (6.3-8.2) g/dL Albumin 4.3 (3.5-5.0) g/dL TSH 3rd Generation (0.470-4.680) mIU/L Urine Color (Yellow) Urine Appearance (Clear) Urine pH (4.6-8.0) Ur Specific [place] (1.005-1.030) Urine Protein (Negative) Urine Glucose (UA) (Negative) mg/dL Urine Ketones (Negative) Urine Blood (Negative) Urine Nitrite (Negative) Urine Bilirubin (Negative) Urine Urobilinogen (0.2) mg/dL Ur Leukocyte Esterase (Negative) U Hyaline Cast (Auto) (0-2) /LPF Urine Microscopic RBC (0-5) /HPF Urine Microscopic WBC (0-5) /HPF Ur Epithelial Cells (None Seen) /HPF Urine Bacteria (None Seen) /HPF Urine Culture Reflexed (NO) Influenza Type A Ag (NEGATIVE) Influenza Type B Ag (NEGATIVE) RSV (PCR) (NEGATIVE) SARS-CoV-2 (PCR) (NEGATIVE) 05/23/25 05/23/25 05/23/25 Range/Units 13:35 17:20 18:07 WBC (4.23-9.07) x10^3/uL RBC (4.63-6.08) x10^6/uL Hgb (13.7-17.5) g/dL Hct (40.1-51.0) % MCV (79.0-92.2) fL MCH (25.7-32.2) pg MCHC (32.3-36.5) g/dL RDW (11.6-14.4) % Plt Count (163-337) x10^3/uL MPV (9.4-12.4) fL Gran % (34.0-67.9) % Immature Gran % (Auto) (0.001-0.429) % Nucleat RBC Rel Count (0.00-0.2) % Eos # (Auto) (0.04-0.54) x10^3/uL Immature Gran # (Auto) (0.001-0.031) x10^3u/L Absolute Lymphs (auto) (1.32-3.57) x10^3/uL Absolute Monos (auto) (0.30-0.82) x10^3/uL Absolute Nucleated RBC (0.00-0.012) x10^3u/L Lymphocytes % (21.8-53.1) % Monocytes % (5.3-12.2) % Eosinophils % (0.8-7.0) % Basophils % (0.2-1.2) % Absolute Granulocytes (1.78-5.38) x10^3/uL Basophils # (0.01-0.08) x10^3/uL D-Dimer (0.0-0.50) mg/L Sodium (135-145) mmol/L Potassium (3.5-5.1) mmol/L Chloride (98-107) mmol/L Carbon Dioxide (22-30) mmol/L Anion Gap (5-15) MEQ/L BUN (9-20) mg/dL Creatinine (0.66-1.25) mg/dL Estimated GFR ML/MIN Glucose (74-106) mg/dL POC Glucometer (74 to 106) mg/dL Hemoglobin A1c (4.5-6.0) % Calcium (8.4-10.2) mg/dL Total Bilirubin (0.2-1.3) mg/dL AST (17-59) U/L ALT (0-50) U/L Alkaline Phosphatase (38-126) U/L Troponin I < 0.012 < 0.012 (0.000-0.033) ng/mL Serum Total Protein (6.3-8.2) g/dL Albumin (3.5-5.0) g/dL TSH 3rd Generation (0.470-4.680) mIU/L Urine Color (Yellow) Urine Appearance (Clear) Urine pH (4.6-8.0) Ur Specific [place] (1.005-1.030) Urine Protein (Negative) Urine Glucose (UA) (Negative) mg/dL Urine Ketones (Negative) Urine Blood (Negative) Urine Nitrite (Negative) Urine Bilirubin (Negative) Urine Urobilinogen (0.2) mg/dL Ur Leukocyte Esterase (Negative) U Hyaline Cast (Auto) (0-2) /LPF Urine Microscopic RBC (0-5) /HPF Urine Microscopic WBC (0-5) /HPF Ur Epithelial Cells (None Seen) /HPF Urine Bacteria (None Seen) /HPF Urine Culture Reflexed (NO) Influenza Type A Ag NEGATIVE (NEGATIVE) Influenza Type B Ag NEGATIVE (NEGATIVE) RSV (PCR) NEGATIVE (NEGATIVE) SARS-CoV-2 (PCR) NEGATIVE (NEGATIVE) 05/23/25 05/23/25 05/24/25 Range/Units 21:16 23:40 04:10 WBC 10.4 H (4.23-9.07) x10^3/uL RBC 4.36 L (4.63-6.08) x10^6/uL Hgb 13.7 (13.7-17.5) g/dL Hct 41.2 (40.1-51.0) % MCV 94.5 H (79.0-92.2) fL MCH 31.4 (25.7-32.2) pg MCHC 33.3 (32.3-36.5) g/dL RDW 13.3 (11.6-14.4) % Plt Count 328 (163-337) x10^3/uL MPV 9.7 (9.4-12.4) fL Gran % (34.0-67.9) % Immature Gran % (Auto) (0.001-0.429) % Nucleat RBC Rel Count (0.00-0.2) % Eos # (Auto) (0.04-0.54) x10^3/uL Immature Gran # (Auto) (0.001-0.031) x10^3u/L Absolute Lymphs (auto) (1.32-3.57) x10^3/uL Absolute Monos (auto) (0.30-0.82) x10^3/uL Absolute Nucleated RBC (0.00-0.012) x10^3u/L Lymphocytes % (21.8-53.1) % Monocytes % (5.3-12.2) % Eosinophils % (0.8-7.0) % Basophils % (0.2-1.2) % Absolute Granulocytes (1.78-5.38) x10^3/uL Basophils # (0.01-0.08) x10^3/uL D-Dimer (0.0-0.50) mg/L Sodium (135-145) mmol/L Potassium (3.5-5.1) mmol/L Chloride (98-107) mmol/L Carbon Dioxide (22-30) mmol/L Anion Gap (5-15) MEQ/L BUN (9-20) mg/dL Creatinine (0.66-1.25) mg/dL Estimated GFR ML/MIN Glucose (74-106) mg/dL POC Glucometer 177 H (74 to 106) mg/dL Hemoglobin A1c (4.5-6.0) % Calcium (8.4-10.2) mg/dL Total Bilirubin (0.2-1.3) mg/dL AST (17-59) U/L ALT (0-50) U/L Alkaline Phosphatase (38-126) U/L Troponin I < 0.012 (0.000-0.033) ng/mL Serum Total Protein (6.3-8.2) g/dL Albumin (3.5-5.0) g/dL TSH 3rd Generation (0.470-4.680) mIU/L Urine Color (Yellow) Urine Appearance (Clear) Urine pH (4.6-8.0) Ur Specific [place] (1.005-1.030) Urine Protein (Negative) Urine Glucose (UA) (Negative) mg/dL Urine Ketones (Negative) Urine Blood (Negative) Urine Nitrite (Negative) Urine Bilirubin (Negative) Urine Urobilinogen (0.2) mg/dL Ur Leukocyte Esterase (Negative) U Hyaline Cast (Auto) (0-2) /LPF Urine Microscopic RBC (0-5) /HPF Urine Microscopic WBC (0-5) /HPF Ur Epithelial Cells (None Seen) /HPF Urine Bacteria (None Seen) /HPF Urine Culture Reflexed (NO) Influenza Type A Ag (NEGATIVE) Influenza Type B Ag (NEGATIVE) RSV (PCR) (NEGATIVE) SARS-CoV-2 (PCR) (NEGATIVE) 05/24/25 05/24/25 05/24/25 Range/Units 04:39 04:39 07:07 WBC (4.23-9.07) x10^3/uL RBC (4.63-6.08) x10^6/uL Hgb (13.7-17.5) g/dL Hct (40.1-51.0) % MCV (79.0-92.2) fL MCH (25.7-32.2) pg MCHC (32.3-36.5) g/dL RDW (11.6-14.4) % Plt Count (163-337) x10^3/uL MPV (9.4-12.4) fL Gran % (34.0-67.9) % Immature Gran % (Auto) (0.001-0.429) % Nucleat RBC Rel Count (0.00-0.2) % Eos # (Auto) (0.04-0.54) x10^3/uL Immature Gran # (Auto) (0.001-0.031) x10^3u/L Absolute Lymphs (auto) (1.32-3.57) x10^3/uL Absolute Monos (auto) (0.30-0.82) x10^3/uL Absolute Nucleated RBC (0.00-0.012) x10^3u/L Lymphocytes % (21.8-53.1) % Monocytes % (5.3-12.2) % Eosinophils % (0.8-7.0) % Basophils % (0.2-1.2) % Absolute Granulocytes (1.78-5.38) x10^3/uL Basophils # (0.01-0.08) x10^3/uL D-Dimer (0.0-0.50) mg/L Sodium 139 (135-145) mmol/L Potassium 4.1 (3.5-5.1) mmol/L Chloride 106 (98-107) mmol/L Carbon Dioxide 26 (22-30) mmol/L Anion Gap 11.2 (5-15) MEQ/L BUN 24 H (9-20) mg/dL Creatinine 1.29 H (0.66-1.25) mg/dL Estimated GFR 59.3 ML/MIN Glucose 105 (74-106) mg/dL POC Glucometer 77 (74 to 106) mg/dL Hemoglobin A1c (4.5-6.0) % Calcium 8.4 (8.4-10.2) mg/dL Total Bilirubin 0.40 (0.2-1.3) mg/dL AST 23 (17-59) U/L ALT 19 (0-50) U/L Alkaline Phosphatase 47 (38-126) U/L Troponin I (0.000-0.033) ng/mL Serum Total Protein 5.9 L (6.3-8.2) g/dL Albumin 3.4 L (3.5-5.0) g/dL TSH 3rd Generation 2.036 (0.470-4.680) mIU/L Urine Color (Yellow) Urine Appearance (Clear) Urine pH (4.6-8.0) Ur Specific [place] (1.005-1.030) Urine Protein (Negative) Urine Glucose (UA) (Negative) mg/dL Urine Ketones (Negative) Urine Blood (Negative) Urine Nitrite (Negative) Urine Bilirubin (Negative) Urine Urobilinogen (0.2) mg/dL Ur Leukocyte Esterase (Negative) U Hyaline Cast (Auto) (0-2) /LPF Urine Microscopic RBC (0-5) /HPF Urine Microscopic WBC (0-5) /HPF Ur Epithelial Cells (None Seen) /HPF Urine Bacteria (None Seen) /HPF Urine Culture Reflexed (NO) Influenza Type A Ag (NEGATIVE) Influenza Type B Ag (NEGATIVE) RSV (PCR) (NEGATIVE) SARS-CoV-2 (PCR) (NEGATIVE) 05/24/25 05/24/25 Range/Units 10:45 11:08 WBC (4.23-9.07) x10^3/uL RBC (4.63-6.08) x10^6/uL Hgb (13.7-17.5) g/dL Hct (40.1-51.0) % MCV (79.0-92.2) fL MCH (25.7-32.2) pg MCHC (32.3-36.5) g/dL RDW (11.6-14.4) % Plt Count (163-337) x10^3/uL MPV (9.4-12.4) fL Gran % (34.0-67.9) % Immature Gran % (Auto) (0.001-0.429) % Nucleat RBC Rel Count (0.00-0.2) % Eos # (Auto) (0.04-0.54) x10^3/uL Immature Gran # (Auto) (0.001-0.031) x10^3u/L Absolute Lymphs (auto) (1.32-3.57) x10^3/uL Absolute Monos (auto) (0.30-0.82) x10^3/uL Absolute Nucleated RBC (0.00-0.012) x10^3u/L Lymphocytes % (21.8-53.1) % Monocytes % (5.3-12.2) % Eosinophils % (0.8-7.0) % Basophils % (0.2-1.2) % Absolute Granulocytes (1.78-5.38) x10^3/uL Basophils # (0.01-0.08) x10^3/uL D-Dimer 3.90 H* (0.0-0.50) mg/L Sodium (135-145) mmol/L Potassium (3.5-5.1) mmol/L Chloride (98-107) mmol/L Carbon Dioxide (22-30) mmol/L Anion Gap (5-15) MEQ/L BUN (9-20) mg/dL Creatinine (0.66-1.25) mg/dL Estimated GFR ML/MIN Glucose (74-106) mg/dL POC Glucometer 170 H (74 to 106) mg/dL Hemoglobin A1c (4.5-6.0) % Calcium (8.4-10.2) mg/dL Total Bilirubin (0.2-1.3) mg/dL AST (17-59) U/L ALT (0-50) U/L Alkaline Phosphatase (38-126) U/L Troponin I (0.000-0.033) ng/mL Serum Total Protein (6.3-8.2) g/dL Albumin (3.5-5.0) g/dL TSH 3rd Generation (0.470-4.680) mIU/L Urine Color (Yellow) Urine Appearance (Clear) Urine pH (4.6-8.0) Ur Specific [place] (1.005-1.030) Urine Protein (Negative) Urine Glucose (UA) (Negative) mg/dL Urine Ketones (Negative) Urine Blood (Negative) Urine Nitrite (Negative) Urine Bilirubin (Negative) Urine Urobilinogen (0.2) mg/dL Ur Leukocyte Esterase (Negative) U Hyaline Cast (Auto) (0-2) /LPF Urine Microscopic RBC (0-5) /HPF Urine Microscopic WBC (0-5) /HPF Ur Epithelial Cells (None Seen) /HPF Urine Bacteria (None Seen) /HPF Urine Culture Reflexed (NO) Influenza Type A Ag (NEGATIVE) Influenza Type B Ag (NEGATIVE) RSV (PCR) (NEGATIVE) SARS-CoV-2 (PCR) (NEGATIVE) Radiology Exams: Radiology Procedures Category Date Time Status CAROTID BILATERAL [US] Routine Exams 05/24/25 09:50 Completed CHEST 1 VIEW (PORTABLE) Stat Exams 05/23/25 13:22 Completed CHEST WITH CONTRAST [CT] Stat Exams 05/23/25 14:16 Completed ECHO W/2D AND DOPPLER [US] Routine Exams 05/24/25 08:00 Taken FACIAL BONES WITH CONTRAST [CT] Routine Exams 05/24/25 09:43 Ordered HEAD WITHOUT CONTRAST [CT] Stat Exams 05/23/25 13:22 Completed Medications: Medications Generic Name Dose Route Start Last Admin Trade Name Leonidas PRN Reason Stop Dose Admin Albuterol/Ipratropium 3 ml 05/23/25 19:00 05/24/25 11:07 Ipratropium/Albuterol Sulfate 3 Ml Ampul.Neb IH 06/22/25 18:59 3 ml QIDRT WILLIAM Administration Amlodipine Besylate 5 mg 05/23/25 22:00 05/24/25 11:02 Amlodipine Besylate 5 Mg Tablet PO 06/22/25 21:59 5 mg BID WILLIAM Administration Artificial Tears 0 ml 05/24/25 10:00 05/24/25 11:08 Carboxymethylcellulose Sodium 15 Ml Bottle OP 06/22/25 21:59 15 ml QID WILLIAM Administration Aspirin 81 mg 05/24/25 10:00 05/24/25 11:02 Aspirin 81 Mg Tablet.Ec PO 06/23/25 09:59 81 mg DAILY WILLIAM Administration Heparin Sodium (Beef Lung) 5,000 unit 05/23/25 22:00 05/24/25 11:03 Heparin 5000 Units/0.5 Ml 5,000 Unit/0.5 Ml Syr SQ 06/22/25 21:59 5,000 unit BID WILLIAM Administration Sodium Chloride 1,000 mls @ 50 mls/hr 05/23/25 17:15 05/23/25 21:28 Sodium Chloride 0.9% 1000 Ml IV 06/22/25 17:14 50 mls/hr .Q20H WILLIAM Administration Ceftriaxone Sodium 1 gm in 100 mls @ 200 mls/hr 05/24/25 10:00 05/24/25 10:11 Rocephin 1 Gm / 100 Ml Nacl IV 06/23/25 09:59 200 mls/hr Q24H10 WILLIAM Administration Azithromycin 500 mg/ Sodium 250 mls @ 250 mls/hr 05/24/25 10:00 05/24/25 11:16 Chloride IV 06/23/25 09:59 250 mls/hr Q24H10 WILLIAM Administration Metronidazole 500 mg in 100 mls @ 200 mls/hr 05/24/25 10:00 05/24/25 11:04 Flagyl 500 Mg Ivpb IV 06/23/25 09:59 200 mls/hr BID WILLIAM Administration Insulin Glargine 30 unit 05/23/25 22:00 05/23/25 21:28 Insulin Glargine 1 Unit SQ 06/22/25 21:59 30 unit HS WILLIAM Administration Insulin Human Lispro 0 unit 05/23/25 16:59 Insulin Lispro 1 Unit SQ 06/22/25 16:58 UD PRN HYPERGLYCEMIA Loratadine 10 mg 05/23/25 22:00 05/23/25 21:28 Loratadine 10 Mg Tablet PO 06/22/25 21:59 10 mg HS WILLIAM Administration Ofloxacin 0 ml 05/24/25 10:00 05/24/25 11:05 Ofloxacin 5 Ml Ear Drops OT 05/31/25 09:59 5 ml BID WILLIAM Administration Pantoprazole Sodium 40 mg 05/24/25 10:00 05/24/25 11:02 Protonix (Pantoprazole) 40 Mg Tablet PO 06/23/25 09:59 40 mg DAILY WILLIAM Administration Prednisolone Acetate 0 ml 05/24/25 10:00 05/24/25 11:08 Prednisolone Acetate 5 Ml Eye Drops OP 06/22/25 21:59 5 ml QID WILLIAM Administration Discontinued Medications Generic Name Dose Route Start Last Admin Trade Name Freq PRN Reason Stop Dose Admin Albuterol/Ipratropium Confirm 05/23/25 18:21 Ipratropium/Albuterol Sulfate 3 Ml Ampul.Neb Administered 05/23/25 18:22 Dose 3 ml IH .STK-MED ONE Albuterol/Ipratropium Confirm 05/24/25 06:46 Ipratropium/Albuterol Sulfate 3 Ml Ampul.Neb Administered 05/24/25 06:47 Dose 3 ml IH .STK-MED ONE Amlodipine Besylate Confirm 05/23/25 21:23 Amlodipine Besylate 5 Mg Tablet Administered 05/23/25 21:24 Dose 5 mg .ROUTE .STK-MED ONE Artificial Tears 1 ml 05/23/25 22:00 05/23/25 21:27 Carboxymethylcellulose Sodium 15 Ml Bottle OP 06/22/25 21:59 1 ml QID WILLIAM Administration Artificial Tears Confirm 05/23/25 21:21 Carboxymethylcellulose Sodium 15 Ml Bottle Administered 05/23/25 21:22 Dose 15 ml OP .STK-MED ONE Heparin Sodium (Beef Lung) Confirm 05/23/25 21:23 Heparin 5000 Units/0.5 Ml 5,000 Unit/0.5 Ml Syr Administered 05/23/25 21:24 Dose 5,000 unit .ROUTE .STK-MED ONE Sodium Chloride 1,000 mls @ 999 mls/hr 05/23/25 13:22 05/23/25 14:39 Sodium Chloride 0.9% 1000 Ml IV 05/23/25 14:22 Infused .Q1H1M STA Infusion Sodium Chloride Confirm 05/23/25 13:30 Sodium Chloride 0.9% 1000 Ml Administered 05/23/25 13:31 Dose 1,000 mls @ ud .ROUTE .STK-MED ONE Azithromycin 500 mg/ Sodium 250 mls @ 250 mls/hr 05/23/25 15:20 05/23/25 19:44 Chloride IV 05/23/25 16:19 Not Given STAT STA Ceftriaxone Sodium 1 gm in 100 mls @ 200 mls/hr 05/23/25 15:20 05/23/25 16:09 Rocephin 1 Gm / 100 Ml Nacl IV 05/23/25 15:49 Infused STAT ONE Infusion Sodium Chloride 1,000 mls @ 999 mls/hr 05/23/25 20:22 05/23/25 20:25 Sodium Chloride 0.9% 1000 Ml IV 05/23/25 21:22 999 mls/hr .Q1H1M STA Administration Ceftriaxone Sodium Confirm 05/23/25 15:33 Rocephin 1 Gm / 100 Ml Nacl Administered 05/23/25 15:34 Dose 1 gm in 100 mls @ ud IV .STK-MED ONE Sodium Chloride Confirm 05/23/25 18:17 Sodium Chloride 0.9% 1000 Ml Administered 05/23/25 18:18 Dose 1,000 mls @ ud .ROUTE .STK-MED ONE Sodium Chloride Confirm 05/23/25 21:23 Sodium Chloride 0.9% 1000 Ml Administered 05/23/25 21:24 Dose 1,000 mls @ ud .ROUTE .STK-MED ONE Insulin Glargine Confirm 05/23/25 21:22 Insulin Glargine 1 Unit Administered 05/23/25 21:23 Dose 30 unit .ROUTE .STK-MED ONE Loratadine Confirm 05/23/25 21:23 Loratadine 10 Mg Tablet Administered 05/23/25 21:24 Dose 10 mg .ROUTE .STK-MED ONE Prednisolone Acetate 1 ml 05/23/25 22:00 05/23/25 21:31 Prednisolone Acetate 5 Ml Eye Drops OP 06/22/25 21:59 1 ml QID WILLIAM Administration Assessment/Plan (1) Pneumonia Current Visit: Yes Status: Acute Qualifiers: Pneumonia type: due to unspecified organism Laterality: unspecified laterality Lung location: unspecified part of lung Qualified Code(s): J18.9 - Pneumonia, unspecified organism Code(s): J18.9 - PNEUMONIA, UNSPECIFIED ORGANISM (2) Syncope Current Visit: Yes Status: Acute Qualifiers: Syncope type: unspecified Qualified Code(s): R55 - Syncope and collapse Code(s): R55 - SYNCOPE AND COLLAPSE (3) Dehydration Current Visit: No Status: Acute Code(s): E86.0 - DEHYDRATION (4) D-dimer, elevated Current Visit: Yes Status: Acute Code(s): R79.89 - OTHER SPECIFIED ABNORMAL FINDINGS OF BLOOD CHEMISTRY (5) IZABELA (acute kidney injury) Current Visit: Yes Status: Acute Code(s): N17.9 - ACUTE KIDNEY FAILURE, UNSPECIFIED (6) Thrombocytosis Current Visit: Yes Status: Acute (7) Allergic conjunctivitis of both eyes Current Visit: Yes Status: Acute Code(s): H10.13 - ACUTE ATOPIC CONJUNCTIVITIS, BILATERAL (8) Type II diabetes mellitus Current Visit: Yes Status: Chronic Qualifiers: Diabetes mellitus fdc insulin use: with 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 Negative pulmonary embolus. 2. Minimal hazy right upper lobe interstitial alveolar opacities. Rule out pneumonia/pneumonitis. 3. Chronic findings including pulmonary emphysema, degenerative spondylosis, fatty liver, old granulomatous disease, and polycystic kidney disease. - CXR: Portable chest again demonstrates normal heart and lungs with incidental tiny right apical calcified granuloma. Bony thorax intact again with mild degenerative changes. No new/acute findings. - CBC, CMP reviewed - WBC 16.6 - BC x2 pending - IV antibiotics - RA 98% - Flu/COVID/RSV- negative 05/24 - CBC, CMP reviewed - RA 100% - BC x2 pending - WBC 10.4- improving Code(s): J18.9 - PNEUMONIA, UNSPECIFIED ORGANISM (2) Syncope Current Visit: Yes Status: Acute Qualifiers: Syncope type: unspecified Qualified Code(s): R55 - Syncope and collapse Assessment & Plan: - Echo - IVF - Orthostats in AM - EKG, TELE - CBC, CMP reviewed - TSH- ok - trops x3- negative - CT head: Impression: Nonacute senile brain. Incidental mild paranasal sinus disease. 05/24 - No further syncopial episodes - Orthostats negative - Echo pending - Echo pending - Carotid duplex: Impression: Minimal arteriosclerotic disease right carotid bulb. Otherwise widely patent left and right carotid arteries of the neck. Velocity measurements and ratios also negative for hemodynamically significant flow-limiting stenosis. Code(s): R55 - SYNCOPE AND COLLAPSE (3) Dehydration Current Visit: No Status: Acute Assessment & Plan: - Creat 1.26- BL normal - Anion Gap 15.3 - IVF started in ER - continue 05/24 - Anion gap 11.2- ok - continued IZABELA - IVF Code(s): E86.0 - DEHYDRATION (4) D-dimer, elevated Current Visit: Yes Status: Acute Assessment & Plan: - D-D otilia 11.51 - CTA negative for PE Code(s): R79.89 - OTHER SPECIFIED ABNORMAL FINDINGS OF BLOOD CHEMISTRY (5) IZABELA (acute kidney injury) Current Visit: Yes Status: Acute Assessment & Plan: - Creat 1.26- BL normal 1.16 - IVF - Hold lisinopril 05/24 - Creat 1.29 - Cont. 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 Assessment & Plan: - Accuchecks AC/HS - A1C 7.0- controlled - Hold oral diabetic meds - High dose S/S insulin - Lantus at HS (9) Polycystic kidney disease Current Visit: Yes Status: Chronic Assessment & Plan: - Pt aware of this dx - Seen on CTA Code(s): Q61.3 - POLYCYSTIC KIDNEY, UNSPECIFIED (10) Facial cellulitis Current Visit: Yes Status: Acute Assessment & Plan: - Benadryl PO X1 - Ceftriaxone, flagyl IV - CT face pending - BC x2 pending - CBC, CMP reviewed Code(s): L03.211 - CELLULITIS OF FACE (11) Otitis externa Current Visit: Yes Status: Acute Qualifiers: Laterality: left Assessment & Plan: - Started antibiotic ear gtts Code(s): H60.90 - UNSPECIFIED OTITIS EXTERNA, UNSPECIFIED EAR (12) HTN (hypertension) Current Visit: Yes Status: Chronic Assessment & Plan: - Hold lisinopril d/t IZABELA - Continue amlodipine - BP stable VTE: Heparin PPI: Omeprazole Next of KIN: Friend- Nataliya Santoro D/C plan: 1-2 days Code status: Full Plan of care time > 45 minutes Code(s): I10 - ESSENTIAL (PRIMARY) HYPERTENSION
[2025-05-24] MEDS: BENADRYL 25 MG CAPSULE PO ONE (14:41)
--- NOTE | 2025-05-24 17:02 | XRAY ---
Indication: Left jaw edema. Cellulitis. Multiple contiguous axial images obtained through facial bones using 80 cc Isovue-370 contrast. Comparison: None Multiple bilateral dental amalgams produces beam artifact limiting these levels. Parotid and submandibular glands are bilaterally symmetric. A few benign centimeter/subcentimeter cervical and submandibular lymph nodes, none pathologically enlarged. Anterior left face demonstrates 3 mm cutaneous benign appearing calcification. No focal solid/cystic soft tissue mass or abnormal fluid collection. Fat planes unremarkable. Minimal bilateral carotid bulb calcifications. Visualized brain unremarkable. Osseous structures intact. No suspicious bony lesions. Paranasal sinuses demonstrates mild mucosal thickening both ethmoid/maxillary sinuses without mucosal thickening. Incidental minimal nasal septal deviation to the right. Impression: 1. Beam artifact from dental amalgams. 2. Incidental minimal bilateral carotid calcifications, benign 3 mm left face cutaneous calcification, and mild paranasal sinus disease. 3. Remaining CT facial bones with contrast exam is negative.
[2025-05-24] MEDS: HUMALOG SQ PRN (22:46)
[2025-05-25 04:44] LABS: Hematocrit 37.4 % (40.1-51.0); Hemoglobin 12.5 g/dL (13.7-17.5); Mean Corpuscular Hemoglobin 31.6 pg (25.7-32.2); Mean Corpuscular Hgb Concent. 33.4 g/dL (32.3-36.5); Platelet Count 263 x10^3/uL (163-337); Red Blood Count 3.95 x10^6/uL (4.63-6.08); White Blood Count 7.6 x10^3/uL (4.23-9.07)
[2025-05-25 04:49] LABS: Calcium 8.9 mg/dL (8.4-10.2); Carbon Dioxide 28.0 mmol/L (22-30); Creatinine 1 1.08 mg/dL (0.66-1.25); EST GLOMERULAR FILTRATION RATE 73.4 ML/MIN; Glucose 117.0 mg/dL (74-106); Potassium 4.1 mmol/L (3.5-5.1); SGOT/AST 18.0 U/L (17-59); SGPT/ALT 19.0 U/L (0-50); Total Protein 5.9 g/dL (6.3-8.2)
[2025-05-25] MEDS ORDERED: DUONEB 0.5-3 MG/3 ml Neb IH PRN (06:46)
[2025-05-25] MEDS: HALLS COUGH DROPS 5.4 MG MM PRN (11:46)
[2025-05-25] MEDS: Augmentin 875-125 Tablet PO SCH (11:49)
--- NOTE | 2025-05-25 14:11 | PCM.NOTE ---
Date and Time: 05/25/25 1409 Subjective Assessment: is a 70-year-old male with a past medical history significant for COPD, hypertension, asthma, type II diabetes mellitus, osteoarthritis, GERD, and hernia presented to the emergency department on 05/23/25 after experiencing two syncopal episodes while playing golf. He reports a similar episode several years ago that was worked up without a definitive cause. He denies preceding chest pain but notes that he became diaphoretic and nearly lost consciousness. According to a friend, the patient exhibited brief tonic-clonic jerking movements of the upper extremities during the event. He was initially evaluated by EMS, where his blood pressure and blood glucose were within normal limits, and was cleared to continue activity, but he experienced a second syncopal episode shortly thereafter. Pt reports cough with green sputum x2 weeks. He reports that he thought he had a cold. He is no longer coughing anything up. Laboratory studies revealed a white blood cell count of 16.6, platelets of 396, D-dimer of 11.51, anion gap of 15.3, creatinine of 1.26 (consistent with acute kidney injury, as his baseline renal function is normal), and glucose of 263 with hemoglobin A1c pending. Imaging included a CTA chest with PE protocol, which was negative for pulmonary embolism but demonstrated minimal hazy right upper lobe interstitial and alveolar opacities suggestive of possible pneumonia or pneumonitis, along with chronic findings of pulmonary emphysema, degenerative spondylosis, fatty liver, old granulomatous disease, and polycystic kidney disease. CT head revealed nonacute senile brain changes and incidental mild paranasal sinus disease. In the emergency department, the patient was started on intravenous fluids for dehydration and antibiotics for treatment of pneumonia. 05/24/25 The patient is resting in bed today and requesting discharge; however, exam is notable for swelling, warmth, and erythema of the left side of the face, jaw, and upper neck. Otoscopic exam revealed findings consistent with otitis externa, and ear drops were started. IV antibiotics and Benadryl were also initiated for edema and erythema. A CT face with IV contrast has been ordered for further evaluation. The patient denies shortness of breath, difficulty swallowing, tooth pain, or dental infection. No oral edema is present. Carotid duplex was negative for acute pathology, and echocardiogram results are pending. Blood cultures 2 are pending, and repeat D-dimer is elevated at 3.90 but improved. His IZABELA has worsened today, and IV fluids are being continued. WBC has improved to 10.4. Orthostatic vitals were negative, and no further syncopal events have occurred. Neurologic exam remains non-concerning. He continues on antibiotics for pneumonia, remains afebrile, is on room air with 100% oxygen saturation, and tested negative for flu, COVID, and RSV. He currently denies chest pain, shortness of breath, abdominal pain, nausea, vomiting, or diarrhea. Objective Data Vital Signs: Vital Signs - 24 hr Temp Pulse Resp BP Pulse Ox 05/25/25 09:00 97.4 F 86 22 131/99 92 L 05/25/25 06:43 94 H 18 95 05/25/25 04:23 97.0 F 80 19 130/83 94 L 05/24/25 23:38 97.6 F 86 20 130/70 98 05/24/25 20:00 97.8 F 77 20 153/76 96 05/24/25 19:40 78 18 94 L 05/24/25 17:00 97.5 F 81 20 146/82 92 L Pain Assessment - Last Documented Pain Intensity 0 Intake and Output: Intake & Output 05/23/25 05/24/25 05/25/25 05/26/25 11:59 11:59 11:59 11:59 Intake Total 2543 2776 Balance 2543 2776 Weight 105.9 kg Lab Results: Lab Results-Last 24 Hours 05/24/25 05/24/25 05/24/25 Range/Units 10:16 16:47 22:07 WBC (4.23-9.07) x10^3/uL RBC (4.63-6.08) x10^6/uL Hgb (13.7-17.5) g/dL Hct (40.1-51.0) % MCV (79.0-92.2) fL MCH (25.7-32.2) pg MCHC (32.3-36.5) g/dL RDW (11.6-14.4) % Plt Count (163-337) x10^3/uL MPV (9.4-12.4) fL Sodium (135-145) mmol/L Potassium (3.5-5.1) mmol/L Chloride (98-107) mmol/L Carbon Dioxide (22-30) mmol/L Anion Gap (5-15) MEQ/L BUN (9-20) mg/dL Creatinine (0.66-1.25) mg/dL Estimated GFR ML/MIN Glucose (74-106) mg/dL POC Glucometer 74 245 H (74 to 106) mg/dL Calcium (8.4-10.2) mg/dL Total Bilirubin (0.2-1.3) mg/dL AST (17-59) U/L ALT (0-50) U/L Alkaline Phosphatase (38-126) U/L C-Reactive Prot, Quant 22 H (0-10) mg/L Serum Total Protein (6.3-8.2) g/dL Albumin (3.5-5.0) g/dL 05/25/25 05/25/25 05/25/25 Range/Units 04:30 04:30 07:13 WBC 7.6 (4.23-9.07) x10^3/uL RBC 3.95 L (4.63-6.08) x10^6/uL Hgb 12.5 L (13.7-17.5) g/dL Hct 37.4 L (40.1-51.0) % MCV 94.7 H (79.0-92.2) fL MCH 31.6 (25.7-32.2) pg MCHC 33.4 (32.3-36.5) g/dL RDW 13.2 (11.6-14.4) % Plt Count 263 (163-337) x10^3/uL MPV 9.9 (9.4-12.4) fL Sodium 137 (135-145) mmol/L Potassium 4.1 (3.5-5.1) mmol/L Chloride 103 (98-107) mmol/L Carbon Dioxide 28 (22-30) mmol/L Anion Gap 10.5 (5-15) MEQ/L BUN 19 (9-20) mg/dL Creatinine 1.08 (0.66-1.25) mg/dL Estimated GFR 73.4 ML/MIN Glucose 117 H (74-106) mg/dL POC Glucometer 92 (74 to 106) mg/dL Calcium 8.9 (8.4-10.2) mg/dL Total Bilirubin 0.10 L (0.2-1.3) mg/dL AST 18 (17-59) U/L ALT 19 (0-50) U/L Alkaline Phosphatase 56 (38-126) U/L C-Reactive Prot, Quant (0-10) mg/L Serum Total Protein 5.9 L (6.3-8.2) g/dL Albumin 3.4 L (3.5-5.0) g/dL 05/25/25 Range/Units 11:22 WBC (4.23-9.07) x10^3/uL RBC (4.63-6.08) x10^6/uL Hgb (13.7-17.5) g/dL Hct (40.1-51.0) % MCV (79.0-92.2) fL MCH (25.7-32.2) pg MCHC (32.3-36.5) g/dL RDW (11.6-14.4) % Plt Count (163-337) x10^3/uL MPV (9.4-12.4) fL Sodium (135-145) mmol/L Potassium (3.5-5.1) mmol/L Chloride (98-107) mmol/L Carbon Dioxide (22-30) mmol/L Anion Gap (5-15) MEQ/L BUN (9-20) mg/dL Creatinine (0.66-1.25) mg/dL Estimated GFR ML/MIN Glucose (74-106) mg/dL POC Glucometer 123 H (74 to 106) mg/dL Calcium (8.4-10.2) mg/dL Total Bilirubin (0.2-1.3) mg/dL AST (17-59) U/L ALT (0-50) U/L Alkaline Phosphatase (38-126) U/L C-Reactive Prot, Quant (0-10) mg/L Serum Total Protein (6.3-8.2) g/dL Albumin (3.5-5.0) g/dL Radiology Exams: Radiology Procedures Category Date Time Status CAROTID BILATERAL [US] Routine Exams 05/24/25 09:50 Completed CHEST 1 VIEW (PORTABLE) Stat Exams 05/23/25 13:22 Completed CHEST WITH CONTRAST [CT] Stat Exams 05/23/25 14:16 Completed ECHO W/2D AND DOPPLER [US] Routine Exams 05/24/25 08:00 Taken FACIAL BONES WITH CONTRAST [CT] Routine Exams 05/24/25 09:43 Completed HEAD WITHOUT CONTRAST [CT] Stat Exams 05/23/25 13:22 Completed Medications: Medications Generic Name Dose Route Start Last Admin Trade Name Freq PRN Reason Stop Dose Admin Albuterol/Ipratropium 3 ml 05/25/25 06:46 Ipratropium/Albuterol Sulfate 3 Ml Ampul.Neb IH 06/24/25 06:45 Q4HPRN PRN SHORTNESS OF BREATH/WHEEZING Amlodipine Besylate 5 mg 05/23/25 22:00 05/25/25 09:58 Amlodipine Besylate 5 Mg Tablet PO 06/22/25 21:59 5 mg BID WILLIAM Administration Amoxicillin/Clavulanate Potassium 875 mg 05/25/25 11:00 05/25/25 11:49 Amox Tr/Potassium Clavulanate 875 Mg Tablet PO 06/24/25 10:59 875 mg Q12HT WILLIAM Administration Artificial Tears 0 ml 05/24/25 10:00 05/25/25 11:46 Carboxymethylcellulose Sodium 15 Ml Bottle OP 06/22/25 21:59 1 ml QID WILLIAM Administration Aspirin 81 mg 05/24/25 10:00 05/25/25 09:58 Aspirin 81 Mg Tablet.Ec PO 06/23/25 09:59 81 mg DAILY WILLIAM Administration Azithromycin 250 mg 05/26/25 10:00 Azithromycin 250 Mg Tablet PO 06/25/25 09:59 DAILY WILLIAM Heparin Sodium (Beef Lung) 5,000 unit 05/23/25 22:00 05/25/25 09:59 Heparin 5000 Units/0.5 Ml 5,000 Unit/0.5 Ml Syr SQ 06/22/25 21:59 5,000 unit BID WILLIAM Administration Insulin Glargine 30 unit 05/23/25 22:00 05/24/25 22:45 Insulin Glargine 1 Unit SQ 06/22/25 21:59 30 unit HS WILLIAM Administration Insulin Human Lispro 0 unit 05/23/25 16:59 05/24/25 22:46 Insulin Lispro 1 Unit SQ 06/22/25 16:58 6 unit UD PRN Administration HYPERGLYCEMIA Menthol 5.4 mg 05/25/25 11:27 05/25/25 11:46 Menthol 5.4 Mg Lozenge MM 06/24/25 11:26 5.4 mg PRN PRN Administration COUGH Ofloxacin 0 ml 05/24/25 10:00 05/25/25 11:47 Ofloxacin 5 Ml Ear Drops OT 05/31/25 09:59 5 ml BID WILLIAM Administration Pantoprazole Sodium 40 mg 05/24/25 10:00 05/25/25 09:58 Protonix (Pantoprazole) 40 Mg Tablet PO 06/23/25 09:59 40 mg DAILY WILLIAM Administration Prednisolone Acetate 0 ml 05/24/25 10:00 05/25/25 11:48 Prednisolone Acetate 5 Ml Eye Drops OP 06/22/25 21:59 5 ml QID WILLIAM Administration Discontinued Medications Generic Name Dose Route Start Last Admin Trade Name Freq PRN Reason Stop Dose Admin Albuterol/Ipratropium 3 ml 05/23/25 19:00 05/24/25 19:37 Ipratropium/Albuterol Sulfate 3 Ml Ampul.Neb IH 06/22/25 18:59 3 ml QIDRT WILLIAM Administration Albuterol/Ipratropium Confirm 05/23/25 18:21 Ipratropium/Albuterol Sulfate 3 Ml Ampul.Neb Administered 05/23/25 18:22 Dose 3 ml IH .STK-MED ONE Albuterol/Ipratropium Confirm 05/24/25 06:46 Ipratropium/Albuterol Sulfate 3 Ml Ampul.Neb Administered 05/24/25 06:47 Dose 3 ml IH .STK-MED ONE Amlodipine Besylate Confirm 05/23/25 21:23 Amlodipine Besylate 5 Mg Tablet Administered 05/23/25 21:24 Dose 5 mg .ROUTE .STK-MED ONE Artificial Tears 1 ml 05/23/25 22:00 05/23/25 21:27 Carboxymethylcellulose Sodium 15 Ml Bottle OP 06/22/25 21:59 1 ml QID WILLIAM Administration Artificial Tears Confirm 05/23/25 21:21 Carboxymethylcellulose Sodium 15 Ml Bottle Administered 05/23/25 21:22 Dose 15 ml OP .STK-MED ONE Diphenhydramine HCl 50 mg 05/24/25 13:11 05/24/25 14:41 Diphenhydramine Hcl 25 Mg Capsule PO 05/24/25 13:12 50 mg STAT ONE Administration Heparin Sodium (Beef Lung) Confirm 05/23/25 21:23 Heparin 5000 Units/0.5 Ml 5,000 Unit/0.5 Ml Syr Administered 05/23/25 21:24 Dose 5,000 unit .ROUTE .STK-MED ONE Sodium Chloride 1,000 mls @ 999 mls/hr 05/23/25 13:22 05/23/25 14:39 Sodium Chloride 0.9% 1000 Ml IV 05/23/25 14:22 Infused .Q1H1M STA Infusion Sodium Chloride Confirm 05/23/25 13:30 Sodium Chloride 0.9% 1000 Ml Administered 05/23/25 13:31 Dose 1,000 mls @ ud .ROUTE .STK-MED ONE Azithromycin 500 mg/ Sodium 250 mls @ 250 mls/hr 05/23/25 15:20 05/23/25 19:44 Chloride IV 05/23/25 16:19 Not Given STAT STA Ceftriaxone Sodium 1 gm in 100 mls @ 200 mls/hr 05/23/25 15:20 05/23/25 16:09 Rocephin 1 Gm / 100 Ml Nacl IV 05/23/25 15:49 Infused STAT ONE Infusion Sodium Chloride 1,000 mls @ 50 mls/hr 05/23/25 17:15 05/24/25 20:37 Sodium Chloride 0.9% 1000 Ml IV 06/22/25 17:14 50 mls/hr .Q20H WILLIAM Administration Ceftriaxone Sodium 1 gm in 100 mls @ 200 mls/hr 05/24/25 10:00 05/25/25 10:39 Rocephin 1 Gm / 100 Ml Nacl IV 06/23/25 09:59 Not Given Q24H10 WILLIAM Azithromycin 500 mg/ Sodium 250 mls @ 250 mls/hr 05/24/25 10:00 05/25/25 09:58 Chloride IV 06/23/25 09:59 250 mls/hr Q24H10 WILLIAM Administration Sodium Chloride 1,000 mls @ 999 mls/hr 05/23/25 20:22 05/23/25 20:25 Sodium Chloride 0.9% 1000 Ml IV 05/23/25 21:22 999 mls/hr .Q1H1M STA Administration Ceftriaxone Sodium Confirm 05/23/25 15:33 Rocephin 1 Gm / 100 Ml Nacl Administered 05/23/25 15:34 Dose 1 gm in 100 mls @ ud IV .STK-MED ONE Sodium Chloride Confirm 05/23/25 18:17 Sodium Chloride 0.9% 1000 Ml Administered 05/23/25 18:18 Dose 1,000 mls @ ud .ROUTE .STK-MED ONE Sodium Chloride Confirm 05/23/25 21:23 Sodium Chloride 0.9% 1000 Ml Administered 05/23/25 21:24 Dose 1,000 mls @ ud .ROUTE .STK-MED ONE Metronidazole 500 mg in 100 mls @ 200 mls/hr 05/24/25 10:00 05/24/25 11:04 Flagyl 500 Mg Ivpb IV 06/23/25 09:59 200 mls/hr BID WILLIAM Administration Insulin Glargine Confirm 05/23/25 21:22 Insulin Glargine 1 Unit Administered 05/23/25 21:23 Dose 30 unit .ROUTE .STK-MED ONE Loratadine 10 mg 05/23/25 22:00 05/23/25 21:28 Loratadine 10 Mg Tablet PO 06/22/25 21:59 10 mg HS WILLIAM Administration Loratadine Confirm 05/23/25 21:23 Loratadine 10 Mg Tablet Administered 05/23/25 21:24 Dose 10 mg .ROUTE .STK-MED ONE Prednisolone Acetate 1 ml 05/23/25 22:00 05/23/25 21:31 Prednisolone Acetate 5 Ml Eye Drops OP 06/22/25 21:59 1 ml QID WILLIAM Administration Multi-Disciplinary Progress Notes: Multi-Disciplinary Progress Notes 05/25/25 09:32 Case Management Note by Judi Wilson S/W PATIENT AND HE CONTINUES TO DENY ANY NEW NEEDS AT TIME OF DC. PLANS TO RETURN HOME WITH HIS S.O. AT [facility]. Initialized on 05/25/25 09:32 - END OF NOTE Assessment/Plan (1) Pneumonia Current Visit: Yes Status: Acute Qualifiers: Pneumonia type: due to unspecified organism Laterality: unspecified laterality Lung location: unspecified part of lung Qualified Code(s): J18.9 - Pneumonia, unspecified organism Code(s): J18.9 - PNEUMONIA, UNSPECIFIED ORGANISM (2) Syncope Current Visit: Yes Status: Acute Qualifiers: Syncope type: unspecified Qualified Code(s): R55 - Syncope and collapse Code(s): R55 - SYNCOPE AND COLLAPSE (3) Dehydration Current Visit: No Status: Acute Code(s): E86.0 - DEHYDRATION (4) D-dimer, elevated Current Visit: Yes Status: Acute Code(s): R79.89 - OTHER SPECIFIED ABNORMAL FINDINGS OF BLOOD CHEMISTRY (5) IZABELA (acute kidney injury) Current Visit: Yes Status: Acute Code(s): N17.9 - ACUTE KIDNEY FAILURE, UNSPECIFIED (6) Thrombocytosis Current Visit: Yes Status: Acute (7) Allergic conjunctivitis of both eyes Current Visit: Yes Status: Acute Code(s): H10.13 - ACUTE ATOPIC CONJUNCTIVITIS, BILATERAL (8) Type II diabetes mellitus Current Visit: Yes Status: Chronic Qualifiers: Diabetes mellitus detention insulin use: with detention use (9) Polycystic kidney disease Current Visit: Yes Status: Chronic Code(s): Q61.3 - POLYCYSTIC KIDNEY, UNSPECIFIED (10) Facial cellulitis Current Visit: Yes Status: Acute Code(s): L03.211 - CELLULITIS OF FACE (11) Otitis externa Current Visit: Yes Status: Acute Qualifiers: Laterality: left Code(s): H60.90 - UNSPECIFIED OTITIS EXTERNA, UNSPECIFIED EAR (12) HTN (hypertension) Current Visit: Yes Status: Chronic Code(s): I10 - ESSENTIAL (PRIMARY) HYPERTENSION
--- NOTE | 2025-05-25 14:25 | PCM.DS ---
Discharge Summary Date of Admission: 05/23/25 16:31 Date of Discharge: 05/25/25 Admitting Physician: ISADORA COOPER MD Consults: Consults on Case 05/25/25 10:56 Consult Cardiology ROUTINE Primary Care Provider: BILL,KATHRYN Allergies Allergies soap Allergy (Intermediate, Verified 11/19/24 12:51) [facility] Summary - Hospital Course Hospital Course: 05/23/25 is a 70-year-old male with a past medical history significant for COPD, hypertension, asthma, type II diabetes mellitus, osteoarthritis, GERD, and hernia presented to the emergency department on 05/23/25 after experiencing two syncopal episodes while playing golf. He reports a similar episode several years ago that was worked up without a definitive cause. He denies preceding chest pain but notes that he became diaphoretic and nearly lost consciousness. According to a friend, the patient exhibited brief tonic-clonic jerking movements of the upper extremities during the event. He was initially evaluated by EMS, where his blood pressure and blood glucose were within normal limits, and was cleared to continue activity, but he experienced a second syncopal episode shortly thereafter. Pt reports cough with green sputum x2 weeks. He reports that he thought he had a cold. He is no longer coughing anything up. Laboratory studies revealed a white blood cell count of 16.6, platelets of 396, D-dimer of 11.51, anion gap of 15.3, creatinine of 1.26 (consistent with acute kidney injury, as his baseline renal function is normal), and glucose of 263 with hemoglobin A1c pending. Imaging included a CTA chest with PE protocol, which was negative for pulmonary embolism but demonstrated minimal hazy right upper lobe interstitial and alveolar opacities suggestive of possible pneumonia or pneumonitis, along with chronic findings of pulmonary emphysema, degenerative spondylosis, fatty liver, old granulomatous disease, and polycystic kidney disease. CT head revealed nonacute senile brain changes and incidental mild paranasal sinus disease. In the emergency department, the patient was started on intravenous fluids for dehydration and antibiotics for treatment of pneumonia. 05/24/25 The patient is resting in bed today and requesting discharge; however, exam is notable for swelling, warmth, and erythema of the left side of the face, jaw, and upper neck. Otoscopic exam revealed findings consistent with otitis externa, and ear drops were started. IV antibiotics and Benadryl were also initiated for edema and erythema. A CT face with IV contrast has been ordered for further evaluation. The patient denies shortness of breath, difficulty swallowing, tooth pain, or dental infection. No oral edema is present. Carotid duplex was negative for acute pathology, and echocardiogram results are pending. Blood cultures 2 are pending, and repeat D-dimer is elevated at 3.90 but improved. His IZABELA has worsened today, and IV fluids are being continued. WBC has improved to 10.4. Orthostatic vitals were negative, and no further syncopal events have occurred. Neurologic exam remains non-concerning. He continues on antibiotics for pneumonia, remains afebrile, is on room air with 100% oxygen saturation, and tested negative for flu, COVID, and RSV. He currently denies chest pain, shortness of breath, abdominal pain, nausea, vomiting, or diarrhea. 05/25/[address] in [address] face was negative for any concerns. Sxs appear to be consistent with parotitis. Lemon cough drops provided. Augmentin and azithromycin PO started today. Echo reviewed and EF 43%, also shows grade 1 diastolic dysfunction, and mild LVH. Cardiology consulted as may be cause of syncopal episodes. Advised pt to f/u OP and he stated he will be moving in 1 month to [place] and will find a provider at that time. WBC normalized today. IZABELA resolved. If ok with cardiology will d/c today. He denies any further concerns at this time and wants to d/c home today. - Vitals & Intake/Output Vital Signs: Vital Signs Temperature 97.4 F 05/25/25 09:00 Pulse Rate 86 05/25/25 09:00 Respiratory Rate 22 05/25/25 09:00 Blood Pressure 131/99 05/25/25 09:00 O2 Sat by Pulse Oximetry 92 L 05/25/25 09:00 Intake & Output: Intake & Output 05/23/25 05/24/25 05/25/25 05/26/25 11:59 11:59 11:59 11:59 Intake Total 3910 4219 Balance 8590 7319 Weight 105.9 kg - Lab Result Diagrams: 05/25/25 04:30 05/25/25 04:30 Lab Results-Last 24 Hrs: Lab Results-Last 24 Hours 05/24/25 05/24/25 05/24/25 Range/Units 10:16 16:47 22:07 WBC (4.23-9.07) x10^3/uL RBC (4.63-6.08) x10^6/uL Hgb (13.7-17.5) g/dL Hct (40.1-51.0) % MCV (79.0-92.2) fL MCH (25.7-32.2) pg MCHC (32.3-36.5) g/dL RDW (11.6-14.4) % Plt Count (163-337) x10^3/uL MPV (9.4-12.4) fL Sodium (135-145) mmol/L Potassium (3.5-5.1) mmol/L Chloride (98-107) mmol/L Carbon Dioxide (22-30) mmol/L Anion Gap (5-15) MEQ/L BUN (9-20) mg/dL Creatinine (0.66-1.25) mg/dL Estimated GFR ML/MIN Glucose (74-106) mg/dL POC Glucometer 74 245 H (74 to 106) mg/dL Calcium (8.4-10.2) mg/dL Total Bilirubin (0.2-1.3) mg/dL AST (17-59) U/L ALT (0-50) U/L Alkaline Phosphatase (38-126) U/L C-Reactive Prot, Quant 22 H (0-10) mg/L Serum Total Protein (6.3-8.2) g/dL Albumin (3.5-5.0) g/dL 05/25/25 05/25/25 05/25/25 Range/Units 04:30 04:30 07:13 WBC 7.6 (4.23-9.07) x10^3/uL RBC 3.95 L (4.63-6.08) x10^6/uL Hgb 12.5 L (13.7-17.5) g/dL Hct 37.4 L (40.1-51.0) % MCV 94.7 H (79.0-92.2) fL MCH 31.6 (25.7-32.2) pg MCHC 33.4 (32.3-36.5) g/dL RDW 13.2 (11.6-14.4) % Plt Count 263 (163-337) x10^3/uL MPV 9.9 (9.4-12.4) fL Sodium 137 (135-145) mmol/L Potassium 4.1 (3.5-5.1) mmol/L Chloride 103 (98-107) mmol/L Carbon Dioxide 28 (22-30) mmol/L Anion Gap 10.5 (5-15) MEQ/L BUN 19 (9-20) mg/dL Creatinine 1.08 (0.66-1.25) mg/dL Estimated GFR 73.4 ML/MIN Glucose 117 H (74-106) mg/dL POC Glucometer 92 (74 to 106) mg/dL Calcium 8.9 (8.4-10.2) mg/dL Total Bilirubin 0.10 L (0.2-1.3) mg/dL AST 18 (17-59) U/L ALT 19 (0-50) U/L Alkaline Phosphatase 56 (38-126) U/L C-Reactive Prot, Quant (0-10) mg/L Serum Total Protein 5.9 L (6.3-8.2) g/dL Albumin 3.4 L (3.5-5.0) g/dL 05/25/25 Range/Units 11:22 WBC (4.23-9.07) x10^3/uL RBC (4.63-6.08) x10^6/uL Hgb (13.7-17.5) g/dL Hct (40.1-51.0) % MCV (79.0-92.2) fL MCH (25.7-32.2) pg MCHC (32.3-36.5) g/dL RDW (11.6-14.4) % Plt Count (163-337) x10^3/uL MPV (9.4-12.4) fL Sodium (135-145) mmol/L Potassium (3.5-5.1) mmol/L Chloride (98-107) mmol/L Carbon Dioxide (22-30) mmol/L Anion Gap (5-15) MEQ/L BUN (9-20) mg/dL Creatinine (0.66-1.25) mg/dL Estimated GFR ML/MIN Glucose (74-106) mg/dL POC Glucometer 123 H (74 to 106) mg/dL Calcium (8.4-10.2) mg/dL Total Bilirubin (0.2-1.3) mg/dL AST (17-59) U/L ALT (0-50) U/L Alkaline Phosphatase (38-126) U/L C-Reactive Prot, Quant (0-10) mg/L Serum Total Protein (6.3-8.2) g/dL Albumin (3.5-5.0) g/dL Micro Results-Entire Visit: Microbiology 05/23/25 15:37 Blood Culture - Preliminary Blood 05/23/25 15:30 Blood Culture - Preliminary Blood Accuchecks Date 05/25/25 Date 05/25/25 Date 05/24/25 - Radiology Exams Ordered Rad Exams-Entire Visit: Radiology Procedures Category Date Time Status CAROTID BILATERAL [US] Routine Exams 05/24/25 09:50 Completed CHEST 1 VIEW (PORTABLE) Stat Exams 05/23/25 13:22 Completed CHEST WITH CONTRAST [CT] Stat Exams 05/23/25 14:16 Completed ECHO W/2D AND DOPPLER [US] Routine Exams 05/24/25 08:00 Taken FACIAL BONES WITH CONTRAST [CT] Routine Exams 05/24/25 09:43 Completed HEAD WITHOUT CONTRAST [CT] Stat Exams 05/23/25 13:22 Completed - Procedures and Test Procedures and Tests throughout Hospitalization: Therapy Orders & Screens 05/23/25 17:03 Respiratory Therapy Consult ONCE Comment: Reason For Exam: 05/23/25 18:55 Respiratory Therapy Assessment DAILY Comment: Diagnosis: syncope 05/25/25 08:15 EKG STAT Comment: Diagnosis: syncope Discharge Exam General Appearance: no apparent distress, alert, obese Neurologic Exam: alert, oriented x 3, cooperative, normal mood/affect, nml cerebellar function, sensation nml, No motor deficits Eye Exam: PERRL, EOMI, eyes nml inspection Ears, Nose, Throat Exam: normal ENT inspection, pharynx normal, moist mucous membranes Neck Exam: normal inspection, non-tender, supple, full range of motion, midline tenderness (Left jaw edema erythema) Respiratory Exam: normal breath sounds, lungs clear, No respiratory distress Cardiovascular Exam: regular rate/rhythm, normal heart sounds Gastrointestinal/Abdomen Exam: soft, No tenderness, No mass Male Genitalia Exam: deferred Rectal Exam: deferred Back Exam: normal inspection, normal range of motion, No CVA tenderness, No vertebral tenderness Extremity Exam: normal inspection, normal range of motion Skin Exam: normal color, warm, dry Final Diagnosis/Problem List - Final Discharge Diagnosis/Problem (1) Pneumonia Current Visit: Yes Status: Acute Code(s): J18.9 - PNEUMONIA, UNSPECIFIED ORGANISM (2) Syncope Current Visit: Yes Status: Acute Code(s): R55 - SYNCOPE AND COLLAPSE (3) Dehydration Current Visit: No Status: Acute Code(s): E86.0 - DEHYDRATION (4) D-dimer, elevated Current Visit: Yes Status: Acute Code(s): R79.89 - OTHER SPECIFIED ABNORMAL FINDINGS OF BLOOD CHEMISTRY (5) IZABELA (acute kidney injury) Current Visit: Yes Status: Acute Code(s): N17.9 - ACUTE KIDNEY FAILURE, UNSPECIFIED (6) Thrombocytosis Current Visit: Yes Status: Acute (7) Allergic conjunctivitis of both eyes Current Visit: Yes Status: Acute Code(s): H10.13 - ACUTE ATOPIC CONJUNCTIVITIS, BILATERAL (8) Type II diabetes mellitus Current Visit: Yes Status: Chronic (9) Polycystic kidney disease Current Visit: Yes Status: Chronic Code(s): Q61.3 - POLYCYSTIC KIDNEY, UNSPECIFIED (10) Facial cellulitis Current Visit: Yes Status: Acute Code(s): L03.211 - CELLULITIS OF FACE (11) Otitis externa Current Visit: Yes Status: Acute Code(s): H60.90 - UNSPECIFIED OTITIS EXTERNA, UNSPECIFIED EAR (12) HTN (hypertension) Current Visit: Yes Status: Chronic Assessment & Plan: (1) Pneumonia Current Visit: Yes Status: Acute Qualifiers: Pneumonia type: due to unspecified organism Laterality: unspecified laterality Lung location: unspecified part of lung Qualified Code(s): J18.9 - Pneumonia, unspecified organism Assessment & Plan: - Chest CT: 1. Negative pulmonary embolus. 2. Minimal hazy right upper lobe interstitial alveolar opacities. Rule out pneumonia/pneumonitis. 3. Chronic findings including pulmonary emphysema, degenerative spondylosis, fatty liver, old granulomatous disease, and polycystic kidney disease. - CXR: Portable chest again demonstrates normal heart and lungs with incidental tiny right apical calcified granuloma. Bony thorax intact again with mild degenerative changes. No new/acute findings. - CBC, CMP reviewed - WBC 16.6 - BC x2 pending - IV antibiotics - RA 98% - Flu/COVID/RSV- negative 05/24 - CBC, CMP reviewed - RA 100% - BC x2 pending - WBC 10.4- improving 05/25 - WBC normalized - BC x2 negative - RA 95% Code(s): J18.9 - PNEUMONIA, UNSPECIFIED ORGANISM (2) Syncope Current Visit: Yes Status: Acute Qualifiers: Syncope type: unspecified Qualified Code(s): R55 - Syncope and collapse Assessment & Plan: - Echo - IVF - Orthostats in AM - EKG, TELE - CBC, CMP reviewed - TSH- ok - trops x3- negative - CT head: Impression: Nonacute senile brain. Incidental mild paranasal sinus disease. 05/24 - No further syncopial episodes - Orthostats negative - Echo pending - Echo pending - Carotid duplex: Impression: Minimal arteriosclerotic disease right carotid bulb. Otherwise widely patent left and right carotid arteries of the neck. Velocity measurements and ratios also negative for hemodynamically significant flow-limiting stenosis. 05/25 - Cardiology consulted - Echo - EF 43%, with mild LVH and Grade I diastolic dysfunction Code(s): R55 - SYNCOPE AND COLLAPSE (3) Dehydration Current Visit: No Status: Acute Assessment & Plan: - Creat 1.26- BL normal - Anion Gap 15.3 - IVF started in ER - continue 05/24 - Anion gap 11.2- ok - continued IZABELA - IVF 05/25 - resolved Code(s): E86.0 - DEHYDRATION (4) D-dimer, elevated Current Visit: Yes Status: Acute Assessment & Plan: - D-D otilia 11.51 - CTA negative for PE Code(s): R79.89 - OTHER SPECIFIED ABNORMAL FINDINGS OF BLOOD CHEMISTRY (5) IZABELA (acute kidney injury) Current Visit: Yes Status: Acute Assessment & Plan: - Creat 1.26- BL normal 1.16 - IVF - Hold lisinopril 05/24 - Creat 1.29 - Cont. IVF 05/25 - resolved Code(s): N17.9 - ACUTE KIDNEY FAILURE, UNSPECIFIED (6) Thrombocytosis Current Visit: Yes Status: Acute Assessment & Plan: - PLT 396 - 2:2 pneumonia- trend 05/24 - resolved (7) Allergic conjunctivitis of both eyes Current Visit: Yes Status: Acute Assessment & Plan: - Artifical tears - Zyrtec at HS - Prednisolone gtts 05/24 - Improved Code(s): H10.13 - ACUTE ATOPIC CONJUNCTIVITIS, BILATERAL (8) Type II diabetes mellitus Current Visit: Yes Status: Chronic Qualifiers: Diabetes mellitus mcc insulin use: with termite helper use Assessment & Plan: - Accuchecks AC/HS - A1C 7.0- controlled - Hold oral diabetic meds - High dose S/S insulin - Lantus at HS (9) Polycystic kidney disease Current Visit: Yes Status: Chronic Assessment & Plan: - Pt aware of this dx - Seen on CTA Code(s): Q61.3 - POLYCYSTIC KIDNEY, UNSPECIFIED (10) Facial cellulitis Current Visit: Yes Status: Acute Assessment & Plan: - Benadryl PO X1 - Ceftriaxone, flagyl IV - CT face pending - BC x2 pending - CBC, CMP reviewed 05/25 - CBC, CMP reviewed - BC x2 pending - CT face negative - + Continued edema of left jaw - Antibiotics changed see parotitis plan Code(s): L03.211 - CELLULITIS OF FACE (11) Otitis externa Current Visit: Yes Status: Acute Qualifiers: Laterality: left Assessment & Plan: - Started antibiotic ear gtts Code(s): H60.90 - UNSPECIFIED OTITIS EXTERNA, UNSPECIFIED EAR (12) HTN (hypertension) Current Visit: Yes Status: Chronic Assessment & Plan: - Hold lisinopril d/t IZABELA - Continue amlodipine - BP stable 05/25 - restart BP meds Code(s): I10 - ESSENTIAL (PRIMARY) HYPERTENSION (13) Parotitis, acute Current Visit: Yes Status: Acute Assessment & Plan: - Left side - Augmentin, azithromycin - Lemon cough drops, recommend lemon drops OP - F/U with PCP OP D/C plan of care time> 40 minutes D/C med: Augmentin, azithromycin Code(s): K11.21 - ACUTE SIALOADENITIS - Discharge Discharge Date: 05/25/25 Disposition: Home, Self-Care Condition: Stable Prescriptions: New Carboxymethylcellulose Sodium [Artificial Tears 15 ML] 1 drop OP QID 10 Days #1 drp Amox Tr/Potass Clav. 875 mg [Augmentin 875-125 Tablet] 875 mg PO Q12HT 5 Days #10 tablet Ofloxacin Otic 5 ml [Floxin Otic 5 ML] 0 ml OT BID Prednisolone Acetate OPHTH [Pred-Forte 1% Ophthalmic] 1 drops OP QID 10 Days #1 drp Azithromycin 250 mg [Zithromax 250 MG TABLET] 250 mg PO DAILY 4 Days #4 tablet Continue Amlodipine Besylate 5 mg [Norvasc 5 mg] 5 mg PO BID Glyburide 5 mg [Micronase 5 MG] 5 mg PO DAILY Insulin Glargine [Lantus Insulin] 30 units SQ HS hydroCHLOROthiazide [Hydrochlorothiazide] 50 mg PO DAILY Metformin HCl 500 mg [Glucophage 500 MG] 500 mg PO DAILY Lisinopril 5 mg [Zestril 5 MG] 5 mg PO DAILY Omeprazole Magnesium [Prilosec] 20 mg PO DAILY Aspirin EC 81 mg [Ecotrin 81 mg] 81 mg PO DAILY #0 Additional Instructions: * Obtain lemon drops to suck on- sugar free if possible. Follow up with: KATHRYN KHAN MD [Primary Care Provider, INTERNAL MEDICINE] - 06/05/25 9:30 am Referral Note: [facility]
[2025-05-25 17:17] VITALS: BP 136/79; PULSE 88; RESP 23; TEMP 98.2; O2SAT 93
--- NOTE | 2025-05-25 18:09 | PCM.CONS ---
History of Present Illness - Date of Consult Consulting Probation Counselor: JUNIE NEWMAN MD Requesting Provider: Attending Provider: ISADORA COOPER MD Primary Care Provider: PCP: KATHRYN KHAN Consent was: Given for this tele-med encounter - Consult Narrative Reason for Consult: syncope HPI: 70-year-old male with a past medical history significant for COPD, hypertension, asthma, type II diabetes mellitus, osteoarthritis, GERD, and hernia presented to the emergency department after experiencing syncope prior to playing a round of golf. He reports a similar episode several years ago that was worked up without a definitive cause. During the episode he was sitting at a table when he experienced LOC and was caught by his friend. He went on to play nine holes, using a golf cart for mobility. After playing, he once again felt a little off with numbness in the face so presented for further evaluation. Labs showed WBC of 16.6, platelets of 396, D-dimer of 11.51, anion gap of 15.3, creatinine of 1.26 (consistent with acute kidney injury, as his baseline renal function is normal), and glucose of 263 with hemoglobin A1c pending. Imaging included a CTA chest with PE protocol, which was negative for pulmonary embolism but demonstrated minimal hazy right upper lobe interstitial and alveolar opacities suggestive of possible pneumonia or pneumonitis, along with chronic findings of pulmonary emphysema, degenerative spondylosis, fatty liver, old granulomatous disease, and polycystic kidney disease. CT head revealed nonacute senile brain changes and incidental mild paranasal sinus disease. In the emergency department, the patient was started on intravenous fluids for dehydration and antibiotics for treatment of pneumonia. Currently he feels back to his baseline self. cc:: The requesting physician will be sent a copy of the consult. Review of Systems - Review of Systems All systems: as per HPI - Past Medical History Past Medical History: Yes Neurological History: No Pertinent History, Peripheral Neuropathy ENT History: Cataracts Cardiac History: Hypertension Respiratory History: Asthma, COPD, Pneumonia, Sleep Apnea Endocrine Medical History: Diabetes Type II Musculoskelatal History: Osteoarthritis GI Medical History: GERD, Hernia History: Renal Disease Pyscho-Social History: No Pertinent History Male Reproductive Disorders: No Pertinent History Comment: was born with a hernia, three fractures on Left arm 1964, and fracture on R ankle 1965. had gonorrhea in the s. - Past Surgical History Past Surgical History: Yes Neuro Surgical History: No Pertinent History Cardiac History: Cardiac Catheterization Respiratory Surgery: No Pertinent History GI Surgical History: No Pertinent History Genitourinary Surgical Hx: No Pertinent History Musculskeletal Surgical Hx: No Pertinent History Male Surgical History: No Pertinent History Other Surgical History: colonoscopy and EGD Significant Family History: no pertinent family hx - Social History Smoking Status: Former smoker How long have you smoked: 25 years Exposure to second hand smoke: No Alcohol: Occasionally Drug Use: none - Social Determinants of Health Will the patient participate in the screening: Declined to provide Do you worry about a steady place to live?: No Do you have any problems with any of the following?: No known problems In the past 12 months,have you had to go without utilities?: No Have you or anyone in your house had to go without enough: No Transportation Issues: No Has anyone in your support network made you feel unsafe?: No Medications & Allergies Home Medications: Home Medication List Amlodipine Besylate 5 mg [Norvasc 5 mg] 5 mg PO BID 10/06/16 [History Confirmed 05/23/25] Glyburide 5 mg [Micronase 5 MG] 5 mg PO DAILY 10/06/16 [History Confirmed 05/23/25] Insulin Glargine [Lantus Insulin] 30 units SQ HS 09/03/22 [History Confirmed 05/23/25] hydroCHLOROthiazide [Hydrochlorothiazide] 50 mg PO DAILY 09/03/22 [History Confirmed 05/23/25] Lisinopril 5 mg [Zestril 5 MG] 5 mg PO DAILY 05/05/23 [History Confirmed 05/23/25] Metformin HCl 500 mg [Glucophage 500 MG] 500 mg PO DAILY 05/05/23 [History Confirmed 05/23/25] Aspirin EC 81 mg [Ecotrin 81 mg] 81 mg PO DAILY #0 05/31/23 [Rx Confirmed 05/23/25] Omeprazole Magnesium [Prilosec] 20 mg PO DAILY 05/31/23 [History Confirmed 05/23/25] Amox Tr/Potass Clav. 875 mg [Augmentin 875-125 Tablet] 875 mg PO Q12HT 5 Days #10 tablet 05/25/25 [Rx] Azithromycin 250 mg [Zithromax 250 MG TABLET] 250 mg PO DAILY 4 Days #4 tablet 05/25/25 [Rx] Carboxymethylcellulose Sodium [Artificial Tears 15 ML] 1 drop OP QID 10 Days #1 drp 05/25/25 [Rx] Ofloxacin Otic 5 ml [Floxin Otic 5 ML] 0 ml OT BID 05/25/25 [Rx] Prednisolone Acetate OPHTH [Pred-Forte 1% Ophthalmic] 1 drops OP QID 10 Days #1 drp 05/25/25 [Rx] Allergies/Adverse Reactions: Allergies Allergy/AdvReac Type Severity Reaction Status Date / Time soap Allergy Intermediate Hives Verified 11/19/24 12:51 Exam - Vitals Vital Signs: Vital Signs - 24 hr Temp Pulse Resp BP Pulse Ox 05/25/25 17:00 98.2 F 88 23 136/79 93 L 05/25/25 13:00 97.9 F 83 22 146/87 91 L 05/25/25 09:00 97.4 F 86 22 131/99 92 L 05/25/25 06:43 94 H 18 95 05/25/25 04:23 97.0 F 80 19 130/83 94 L 05/24/25 23:38 97.6 F 86 20 130/70 98 05/24/25 20:00 97.8 F 77 20 153/76 96 05/24/25 19:40 78 18 94 L HEENT: other (swelling of left parotid gland) Cardiovascular Exam: regular rate/rhythm Respiratory Exam: diminished breath sounds SpO2: 93 Gastrointestinal/Abdomen Exam: normal bowel sounds Extremity Exam: normal inspection, other (no edema) Neurologic: 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 II-XII grossly intact Results Vital Signs: Vital Signs - 24 hr Temp Pulse Resp BP Pulse Ox 05/25/25 17:00 98.2 F 88 23 136/79 93 L 05/25/25 13:00 97.9 F 83 22 146/87 91 L 05/25/25 09:00 97.4 F 86 22 131/99 92 L 05/25/25 06:43 94 H 18 95 05/25/25 04:23 97.0 F 80 19 130/83 94 L 05/24/25 23:38 97.6 F 86 20 130/70 98 05/24/25 20:00 97.8 F 77 20 153/76 96 05/24/25 19:40 78 18 94 L Pain Assessment - Last Documented Pain Intensity 0 Intake and Output: Intake & Output 05/23/25 05/24/25 05/25/25 05/26/25 11:59 11:59 11:59 11:59 Intake Total 2543 2776 480 Balance 2543 2776 480 Weight 105.9 kg LAB: I have reviewed the Labs in [facility]. Radiology Exams: Radiology Procedures Category Date Time Status CAROTID BILATERAL [US] Routine Exams 05/24/25 09:50 Completed ECHO W/2D AND DOPPLER [US] Routine Exams 05/24/25 08:00 Taken FACIAL BONES WITH CONTRAST [CT] Routine Exams 05/24/25 09:43 Completed - ECHO Echo: interpreted by me Multi-Disciplinary Progress Notes: Multi-Disciplinary Progress Notes 05/25/25 09:32 Case Management Note by Judi Wilson S/W PATIENT AND HE CONTINUES TO DENY ANY NEW NEEDS AT TIME OF DC. PLANS TO RETURN HOME WITH HIS S.O. AT [facility]. Initialized on 05/25/25 09:32 - END OF NOTE Assessment & Plan (1) Syncope Current Visit: Yes Status: Acute Qualifiers: Syncope type: unspecified Qualified Code(s): R55 - Syncope and collapse Assessment & Plan: Seems to be vasovagal in nature with initial labs suggestive of dehydration and likely underlying infection. Echo was mostly benign with low normal systolic function and no significant valvular disease. The patient reports undergoing a stress test 1.5 years ago which he reports was unremarkable. No further inpatient CV workup needed at this time. I've asked him to follow up with his outpatient physicians. Code(s): R55 - SYNCOPE AND COLLAPSE - Encounter Encounter: "The entirety of this encounter was performed via Telemedicine using audio and visual "
[2025-05-26] MEDS ORDERED: Zithromax 250 MG TABLET PO SCH (10:00)
== END 2025-05-25 18:10 | disposition home or self-care (01) ==
LOC: ED 11:46 → MED SURG 16:31
PROVIDERS: ADMIT Internal Medicine; ATTEND Internal Medicine
DX: J18.9 Pneumonia, unspecified organism (principal); R55 Syncope and collapse; I10 Essential (primary) hypertension; E11.9 Type 2 diabetes mellitus without complications; E86.0 Dehydration; R79.89 Other specified abnormal findings of blood chemistry; N17.9 Acute kidney failure, unspecified; D75.839 Thrombocytosis, unspecified; H10.13 Acute atopic conjunctivitis, bilateral; Q61.3 Polycystic kidney, unspecified; L03.211 Cellulitis of face; H60.92 Unspecified otitis externa, left ear; Z79.899 Other long term (current) drug therapy
CPT/HCPCS: 36415; 70450; 70487; 71045; 71260; 80053; 81001; 82947; 83036; 84443; 84484; 85025; 85027; 85379; 85652; 86140; 87040; 87637; 93005; 93041; 93306; 93880; 94640; 94760; 94762; 96360; 96365; 99285; Q3014